=== PATIENT | male | born 1980 | race Caucasian/White ===

== ENCOUNTER → 2022-10-10 | Outpatient (OUT) | payer OTHER, SELFPAY ==
[2022-10-11 06:08] LABS: HIV Ab/p24 Ag Screen Non Reactive (Non Reactive)
== END ==
LOC: LAB 11:08
PROVIDERS: PCP Internal Medicine; Visit Provider Internal Medicine
DX: Z11.4 Encounter for screening for human immunodeficiency virus [HIV] (principal)
CPT/HCPCS: 36415; 87389

== ENCOUNTER 2023-01-15 15:16 | Outpatient (OUT) | payer OTHER, SELFPAY ==
[2023-01-16 05:08] LABS: HIV Ab/p24 Ag Screen Non Reactive (Non Reactive)
== END 2023-01-15 15:17 | disposition home or self-care (01) ==
LOC: LAB 15:17
PROVIDERS: PCP Internal Medicine; Visit Provider Internal Medicine
DX: Z72.52 High risk homosexual behavior (principal)
CPT/HCPCS: 36415; 87389

== ENCOUNTER 2023-05-24 14:01 | Emergency (ER) | payer OTHER, SELFPAY ==
[2023-05-24] VITALS (11 sets, daily range): BP systolic 94–131; BP diastolic 64–102; PULSE 10–104; RESP 11–31; TEMP 36.6; O2SAT 95–100; BMI 20.1
--- NOTE | 2023-05-24 14:23 | ECG_ITS ---
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
--- NOTE | 2023-05-24 14:23 | CT_ITS ---
The [address] [address] Patient Name: BALTAZAR PHIPPS MRN: [id number] date: 1980 Sex: M Assigned Patient Location: ER Current Patient Location: Accession/Order Number: [id number] Exam Date: 05/24/2023 14:35 Report Date: 05/24/2023 14:58 At the request of: CHRISTIN GONGORA Procedure: CT cervical spine wo con EXAM: CT head/brain wo con, CT cervical spine wo con HISTORY: Seizure, neck pain areas of stent COMPARISON: CT head and cervical spine 04/17/2022 TECHNIQUE: Axial noncontrast CT imaging of the head and cervical spine was performed with coronal and sagittal reformats. This CT exam was performed using one or more of the following dose reduction techniques: Automated exposure control, adjustment of the MA and/or kV according to patient size, or use of iterative reconstruction technique. FINDINGS: CT head Calvarium/skull base: No evidence of acute fracture or destructive lesion. Mastoids and middle ears demonstrate no substantial mucosal disease. Paranasal sinuses: No air fluid levels. Brain: No acute intracranial hemorrhage. No acute large vascular territory infarct. No mass lesion or mass effect. No hydrocephalus. CT cervical spine Alignment: Unchanged straightening of the normal cervical lordosis. No substantial subluxation. Vertebrae: Vertebral body heights are maintained. No fracture. Craniocervical junction: No focal abnormality. Congenital nonunion of the posterior arch of C1. Degenerative changes: Similar mild degenerative changes of cervical spine with mild disc height loss and small posterior disc ossify complex at C6-C7. Additional Comments: Biapical scarring with emphysematous changes involving the visualized upper lungs. Streak artifact relating to a right vertebral artery stent is noted with hyperdensity noted within the central aspect of the stents unchanged from prior. This is of undetermined significance given lack of intravenous contrast on the current study. CT/CT cervical spine wo con IMPRESSION: 1. No acute intracranial process. No specific CT evidence to explain etiology for patient's reported seizures. 2. No acute fracture or malalignment of the cervical spine. 3. Similar mild degenerative changes of the cervical spine. 4. Nonspecific hypodensity involving the ventral aspect of the right vertebral artery stent throughout its course which is of undetermined significance and may relate to the type of stent placement. No evidence for stent fracture or significant stenosis is otherwise seen. Patency of the stents cannot be determined on the current study given lack of intravenous contrast. Electronically authenticated by: SAMANTHA MARMOLEJO Date: 05/24/2023 14:58
--- NOTE | 2023-05-24 14:24 | CT_ITS ---
The [address] [address] Patient Name: BALTAZAR PHIPPS MRN: [id number] date: 1980 Sex: M Assigned Patient Location: ER Current Patient Location: Accession/Order Number: [id number] Exam Date: 05/24/2023 14:35 Report Date: 05/24/2023 14:58 At the request of: CHRISTIN GONGORA Procedure: CT head/brain wo con EXAM: CT head/brain wo con, CT cervical spine wo con HISTORY: Seizure, neck pain areas of stent COMPARISON: CT head and cervical spine 04/17/2022 TECHNIQUE: Axial noncontrast CT imaging of the head and cervical spine was performed with coronal and sagittal reformats. This CT exam was performed using one or more of the following dose reduction techniques: Automated exposure control, adjustment of the MA and/or kV according to patient size, or use of iterative reconstruction technique. FINDINGS: CT head Calvarium/skull base: No evidence of acute fracture or destructive lesion. Mastoids and middle ears demonstrate no substantial mucosal disease. Paranasal sinuses: No air fluid levels. Brain: No acute intracranial hemorrhage. No acute large vascular territory infarct. No mass lesion or mass effect. No hydrocephalus. CT cervical spine Alignment: Unchanged straightening of the normal cervical lordosis. No substantial subluxation. Vertebrae: Vertebral body heights are maintained. No fracture. Craniocervical junction: No focal abnormality. Congenital nonunion of the posterior arch of C1. Degenerative changes: Similar mild degenerative changes of cervical spine with mild disc height loss and small posterior disc ossify complex at C6-C7. Additional Comments: Biapical scarring with emphysematous changes involving the visualized upper lungs. Streak artifact relating to a right vertebral artery stent is noted with hyperdensity noted within the central aspect of the stents unchanged from prior. This is of undetermined significance given lack of intravenous contrast on the current study. CT/CT head/brain wo con IMPRESSION: 1. No acute intracranial process. No specific CT evidence to explain etiology for patient's reported seizures. 2. No acute fracture or malalignment of the cervical spine. 3. Similar mild degenerative changes of the cervical spine. 4. Nonspecific hypodensity involving the ventral aspect of the right vertebral artery stent throughout its course which is of undetermined significance and may relate to the type of stent placement. No evidence for stent fracture or significant stenosis is otherwise seen. Patency of the stents cannot be determined on the current study given lack of intravenous contrast. Electronically authenticated by: SAMANTHA MARMOLEJO Date: 05/24/2023 14:58
--- NOTE | 2023-05-24 14:26 | ED_ITS ---
HPI - Seizure General Chief Complaint: Seizure Stated Complaint: SEIZURES Time Seen by Provider: 05/24/23 14:13 History of Present Illness HPI Narrative: Patient is a 42-year-old male with a history of CVA and seizures who presents to the emergency department by ambulance for the evaluation of seizure last night and this morning. Patient states that he has not been able to take his seizure medication for the last 6 to 7 days because no one will fill it . He is on Oxtellar for his seizures. This is prescribed by his primary care provider. He is also on Plavix for history of CVA.He has no focal medical complaints until he is examined and then complains of neck pain. He states he was asleep on the couch last night when he woke up shaking on the floor. He states his seizures consist of him shaking and being awake. No medications given prior to arrival by EMS. He had a similar episode this morning which prompted his mother to call 911. No recent illness. He was not noted to have any incontinence or dental injury. Related Data Home Medications Medication Instructions Recorded Confirmed clopidogrel 75 mg tablet 75 mg PO DAILY 05/24/23 05/24/23 emtricitabine 200 mg-tenofovir 1 tab PO Q24H 05/24/23 05/24/23 disoproxil fumarate 300 mg tablet loratadine 10 mg tablet 10 mg PO Q24H 05/24/23 05/24/23 trazodone 150 mg tablet 150 mg PO DAILY PRN insomnia 05/24/23 05/24/23 Previous Rx's Medication Instructions Recorded levetiracetam 500 mg tablet 500 mg PO Q12H #30 tabs 05/24/23 (Keppra) ondansetron 4 mg disintegrating 4 mg PO Q6H PRN nausea and 05/24/23 tablet vomiting #12 tabs Allergies Allergy/AdvReac Type Severity Reaction Status Date / Time bupropion [From Wellbutrin] AdvReac Gastrointestinal Verified 05/24/23 14:31 Upset Review of Systems ROS Constitutional Denies: fever or chills Ears, nose, mouth, and throat Denies: throat pain or nasal congestion Cardiovascular Denies: chest pain Respiratory Denies: shortness of breath or cough Gastrointestinal Reports: nausea; Denies: vomiting Musculoskeletal Reports: neck pain; Denies: back pain or extremity pain Integumentary/Breast Denies: rash Neurological Denies: headache PFSH PFSH Social History Smoking status: Current every day smoker Exam Narrative Exam Narrative: Gen.: Awake, alert, in no distress Head: Normocephalic, atraumatic ENT: Moist mucous membranes; Poor dentition with no dental injury. C-spine is tender to palpation in the paraspinal muscles of the right cervical spine Respiratory: No respiratory distress, lungs clear bilaterally Cardio: Regular rate and rhythm Gastrointestinal: Abdomen is soft, nondistended and nontender to palpation Extremities: Moves extremities equally, no injuries noted Psych: Normal mood and affect Neuro: No focal neuro deficit Skin: Warm, dry, intact Constitutional Vital Signs, click to edit/add: Last Vital Signs Temp 97.8 F 05/24/23 14:18 Pulse 10 L 05/24/23 16:31 Resp 18 05/24/23 16:31 BP 94/64 05/24/23 16:31 Pulse Ox 99 05/24/23 16:31 O2 Del Method Room Air 05/24/23 14:18 Course Vital Signs Vital signs: Vital Signs Blood Pressure 118/102 H 05/24/23 14:11 Pulse Oximetry 97 05/24/23 14:11 Temperature 97.8 F 05/24/23 14:18 Pulse Rate 10 L 05/24/23 16:31 Respiratory Rate 18 05/24/23 16:31 Blood Pressure 94/64 05/24/23 16:31 Pulse Oximetry 99 05/24/23 16:31 Oxygen Delivery Method Room Air 05/24/23 14:18 MDM - Seizure MDM Narrative Medical decision making narrative: CT of the head and C-spine show no change from prior, no acute abnormalities. Lab studies are unremarkable and patient was treated with IV fluids and IV Keppra in the ER. I discussed his medication issue with his PCP, Dr. Irvin who recommended I speak with his neurologist, Dr. Mean, But as it is after office hours he is not available. I will Prescribe the patient Keppra which was suggested by Dr. Irvin. Follow-up with PCP and neurology and return to the ER if symptoms change or worsen Medical Records Attestation: I reviewed the patient's medical records. Lab Data Attestation: I reviewed the patient's lab results. Labs: Lab Results 05/24/23 Range/Units 14:25 WBC 6.1 (4.0-11.0) 10^3/uL RBC 4.13 L (4.70-6.10) 10^6/uL Hgb 14.2 (14.0-18.0) g/dL Hct 41.4 L (42.0-54.0) % MCV 100.2 H (80.0-94.0) fL MCH 34.4 H (25.9-34.0) pg MCHC 34.3 (29.9-35.2) g/dL RDW 12.7 (11.0-15.0) % Plt Count 196 (150-450) 10^3/uL MPV 11.4 (9.5-13.5) fL Neut % (Auto) 47.5 (43.0-75.0) % Lymph % (Auto) 41.9 (20.5-60.0) % [place] % (Auto) 7.6 (1.7-12.0) % Eos % (Auto) 2.1 (0.9-7.0) % Baso % (Auto) 0.7 (0.2-2.0) % Neut # (Auto) 2.9 (1.4-6.5) 10^3/uL Lymph # (Auto) 2.6 (1.2-3.8) 10^3/uL [place] # (Auto) 0.5 (0.3-0.8) 10^3/uL Eos # (Auto) 0.1 (0.0-0.7) 10^3/uL Baso # (Auto) 0.0 (0.0-0.1) 10^3/uL Abs Immat Gran (auto) 0.01 (0.00-0.03) 10^3/uL Imm/Tot Granulo (auto) 0.2 (0.0-0.5) % Sodium 142 (136-145) mmol/L Potassium 4.6 (3.5-5.1) mmol/L Chloride 104 (98-107) mmol/L Carbon Dioxide 28.0 (21.0-32.0) mmol/L Anion Gap 14.6 BUN 5.0 L (7.0-18.0) mg/dL Creatinine 0.76 (0.70-1.30) mg/dL Est GFR ( Amer) >60 (>=60) Est GFR (Non-Af Amer) >60 (>=60) BUN/Creatinine Ratio 6.6 Glucose 80 (74-106) mg/dL Calcium 8.3 L (8.5-10.1) mg/dL Magnesium 2.2 (1.8-2.4) mg/dL Total Bilirubin 0.3 (0.2-1.0) mg/dL AST 40 H (15-37) U/L ALT 25 (16-63) U/L Alkaline Phosphatase 74 (46-116) U/L Total Protein 8.0 (6.4-8.2) g/dL Albumin 3.8 (3.4-5.0) g/dL Globulin 4.2 g/dL Albumin/Globulin Ratio 0.[address] scan - head: Radiologist's impression: ITS Impressions Cervical Spine CT 05/24/23 14:23 IMPRESSION: 1. No acute intracranial process. No specific CT evidence to explain etiology for patient's reported seizures. 2. No acute fracture or malalignment of the cervical spine. 3. Similar mild degenerative changes of the cervical spine. 4. Nonspecific hypodensity involving the ventral aspect of the right vertebral artery stent throughout its course which is of undetermined significance and may relate to the type of stent placement. No evidence for stent fracture or significant stenosis is otherwise seen. Patency of the stents cannot be determined on the current study given lack of intravenous contrast. Electronically authenticated by: SAMANTHA MARMOLEJO Date: 05/24/2023 14:[address] 05/24/23 14:24 IMPRESSION: 1. No acute intracranial process. No specific CT evidence to explain etiology for patient's reported seizures. 2. No acute fracture or malalignment of the cervical spine. 3. Similar mild degenerative changes of the cervical spine. 4. Nonspecific hypodensity involving the ventral aspect of the right vertebral artery stent throughout its course which is of undetermined significance and may relate to the type of stent placement. No evidence for stent fracture or significant stenosis is otherwise seen. Patency of the stents cannot be determined on the current study given lack of intravenous contrast. Electronically authenticated by: SAMANTHA MARMOLEJO Date: 05/24/2023 14:58 Discharge Plan Discharge Chief Complaint: Seizure Clinical Impression: Breakthrough seizure Patient Disposition: Home, Self-Care Time of Disposition Decision: 16:31 Condition: Good Prescriptions / Home Meds: New levetiracetam [Keppra] 500 mg tablet 500 mg PO Q12H Qty: 30 0RF ondansetron 4 mg tablet,disintegrating 4 mg PO Q6H PRN (Reason: nausea and vomiting) Qty: 12 0RF No Action clopidogrel 75 mg tablet 75 mg PO DAILY loratadine 10 mg tablet 10 mg PO Q24H emtricitabine-tenofovir (TDF) 200-300 mg tablet 1 tab PO Q24H trazodone 150 mg tablet 150 mg PO DAILY PRN (Reason: insomnia) Instructions: Recurrent Seizures in Adults (ED) Stand Alone Forms: Portal Instructions Referrals: JESSICA MENA [Physician] - 1 week DARRELL IRVIN [Primary Care Provider] - 1 week
--- NOTE | 2023-05-24 14:36 | PC.NURSE ---
Arrives via EMS. Patient alert and oriented and answers all questions appropriately.
[2023-05-24 15:00] LABS: Basophils Percent Auto 0.7 % (0.2-2.0); Eosinophils Absolute Auto 0.1 10^3/uL (0.0-0.7); Eosinophils Percent Auto 2.1 % (0.9-7.0); Hematocrit 41.4 % (42.0-54.0); Hemoglobin 14.2 g/dL (14.0-18.0); Immature Granulocytes Abs Auto 0.01 10^3/uL (0.00-0.03); Immature Granulocytes Pct Auto 0.2 % (0.0-0.5); Lymphocytes Absolute Auto 2.6 10^3/uL (1.2-3.8); Lymphocytes Percent Auto 41.9 % (20.5-60.0); Mean Corpuscular HGB Conc 34.3 g/dL (29.9-35.2); Mean Corpuscular Hemoglobin 34.4 pg (25.9-34.0); Mean Corpuscular Volume 100.2 fL (80.0-94.0); Mean Platelet Volume 11.4 fL (9.5-13.5); Monocytes Absolute Auto 0.5 10^3/uL (0.3-0.8); Monocytes Percent Auto 7.6 % (1.7-12.0); Neutrophils Absolute Auto 2.9 10^3/uL (1.4-6.5); Neutrophils Percent Auto 47.5 % (43.0-75.0); Platelet Count 196 10^3/uL (150-450); Red Blood Count 4.13 10^6/uL (4.70-6.10); Red Cell Distribution Width 12.7 % (11.0-15.0); White Blood Count 6.1 10^3/uL (4.0-11.0)
[2023-05-24] MEDS: ORPHENADRINE 60 MG/ 2 ML VIAL IV (15:14)
[2023-05-24] MEDS: ONDANSETRON PF 4 MG/2 ML VIAL IV (15:14)
[2023-05-24] MEDS: 0.9 % SODIUM CHLORIDE 1,000 ML 999 ML IV (15:17)
[2023-05-24] MEDS: LEVETIRACETAM 1,000 MG in 0.9 % SODIUM CHLORIDE 100 ML 440 MG IV (15:17)
[2023-05-24 15:32] LABS: Alanine Aminotransferase 25 U/L (16-63); Albumin Globulin Ratio 0.9; Albumin Level 3.8 g/dL (3.4-5.0); Alkaline Phosphatase 74 U/L (46-116); Anion Gap 14.6; Aspartate Amino Transferase 40 U/L (15-37); BUN Creatinine Ratio 6.6; Bilirubin Total 0.3 mg/dL (0.2-1.0); Calcium 8.3 mg/dL (8.5-10.1); Chloride 104 mmol/L (98-107); Estimated GFR (African America >60 (>=60); Estimated GFR (Non-African Ame >60 (>=60); Globulin 4.2 g/dL; Glucose 80 mg/dL (74-106); Magnesium 2.2 mg/dL (1.8-2.4); Potassium 4.6 mmol/L (3.5-5.1); Sodium 142 mmol/L (136-145)
== END 2023-05-24 17:05 | disposition home or self-care (01) ==
PROVIDERS: Physician Assistant; Emergency Provider Emergency Medicine; PCP Internal Medicine
DX: G40.909 Epilepsy, unspecified, not intractable, without status epilepticus (principal); Z86.73 Personal history of transient ischemic attack (TIA), and cerebral infarction without residual deficits; Z79.899 Other long term (current) drug therapy; Z79.02 Long term (current) use of antithrombotics/antiplatelets; F17.210 Nicotine dependence, cigarettes, uncomplicated
CPT/HCPCS: 36415; 70450; 72125; 80053; 80307; 83735; 85025; 93005; 96365; 96375; 99285; J1953; J2360; J2405

== ENCOUNTER 2023-06-07 09:52 | Outpatient (OUT) | payer OTHER, SELFPAY ==
[2023-06-08 05:08] LABS: HIV Ab/p24 Ag Screen Non Reactive (Non Reactive)
[2023-06-11 07:07] LABS: Levetiracetam (Keppra), S 21.1 ug/mL (10.0-40.0)
== END 2023-06-07 09:53 | disposition home or self-care (01) ==
LOC: LAB 09:56
PROVIDERS: PCP Internal Medicine; Visit Provider Internal Medicine
DX: R56.9 Unspecified convulsions (principal)
CPT/HCPCS: 36415; 80177; 87389

== ENCOUNTER 2023-07-30 11:04 | Outpatient (OUT) | payer OTHER, SELFPAY ==
[2023-07-30 11:34] LABS: Hemoglobin 13.1 g/dL (14.0-18.0); Mean Corpuscular HGB Conc 32.8 g/dL (29.9-35.2); Mean Corpuscular Hemoglobin 33.5 pg (25.9-34.0); Mean Corpuscular Volume 102.3 fL (80.0-94.0); Platelet Count 142 10^3/uL (150-450); Red Blood Count 3.91 10^6/uL (4.70-6.10); Red Cell Distribution Width 12.2 % (11.0-15.0)
[2023-07-30 13:06] LABS: Bilirubin Direct 0.1 mg/dL (0.0-0.2)
[2023-07-30 13:50] LABS: Alanine Aminotransferase 26 U/L (16-63); Albumin Globulin Ratio 1.1; Albumin Level 3.8 g/dL (3.4-5.0); Alkaline Phosphatase 63 U/L (46-116); Anion Gap 14.3; Aspartate Amino Transferase 18 U/L (15-37); BUN Creatinine Ratio 6.8; Bilirubin Total 0.3 mg/dL (0.2-1.0); Carbon Dioxide 27.1 mmol/L (21.0-32.0); Chloride 103 mmol/L (98-107); Estimated GFR (African America >60 (>=60); Estimated GFR (Non-African Ame >60 (>=60); Globulin 3.6 g/dL; Glucose 85 mg/dL (74-106); Potassium 4.4 mmol/L (3.5-5.1); Sodium 140 mmol/L (136-145); Total Protein 7.4 g/dL (6.4-8.2)
[2023-07-31 06:08] LABS: HIV Ab/p24 Ag Screen Non Reactive (Non Reactive)
[2023-08-01 16:11] LABS: HCV Ab Reactive (Non Reactive)
== END 2023-07-30 11:05 | disposition home or self-care (01) ==
LOC: LAB 11:07
PROVIDERS: PCP Internal Medicine
DX: F10.20 Alcohol dependence, uncomplicated (principal)
CPT/HCPCS: 36415; 80053; 80076; 82248; 85027; 87389; 87522

== ENCOUNTER 2023-10-22 09:23 | Emergency (ER) | payer OTHER, SELFPAY ==
[2023-10-22] VITALS (15 sets, daily range): BP systolic 108–130; BP diastolic 80–88; PULSE 93–110; TEMP 37; O2SAT 92–97; BMI 20.8
--- NOTE | 2023-10-22 09:53 | PC.NURSE ---
patient brought in by EMS with NC at 4 lpm, IV established with 900 ml of saline given. Patient was have left sided weakness that is from a previous stroke however patient states it is more painful and intense. Patient admits to drinking alcohol on a daily basis. Is current with prescribed medications.
--- NOTE | 2023-10-22 10:02 | ED_ITS ---
HPI - Seizure General Chief Complaint: Seizure Stated Complaint: SHORTNESS OF BREATH/ COUGH Time Seen by Provider: 10/22/23 10:01 Source: patient Mode of arrival: ambulance Limitations: no limitations History of Present Illness HPI Narrative: This patient's here for complaint of left-sided weakness. He has had a previous large stroke treated at a tertiary center a number of years ago. He has residual speech deficit and left-sided weakness but since he had major seizure on the previous Sunday he said he just has not recovered. He says his roommate says had a couple small seizures since that time as well. He cannot really describe much of his history but said that he has a stent in on the right side of his body. He does not have any neck pain or severe head pain at this time. He has muscle aches and pains that he attributes to the severe seizure. He has no abdominal pain, no shortness of breath. He says normally gets around and takes care of himself but now he is got increasing weakness on his left arm left leg. Seizure History: Yes Place: home Related Data Home Medications ?Medication ?Instructions ?Recorded ?Confirmed clopidogrel 75 mg tablet 75 mg PO DAILY 05/24/23 10/22/23 emtricitabine 200 mg-tenofovir 1 tab PO Q24H 05/24/23 10/22/23 disoproxil fumarate 300 mg tablet trazodone 150 mg tablet 150 mg PO DAILY PRN insomnia 05/24/23 10/22/23 buspirone 10 mg tablet 10 mg PO Q8H 10/22/23 10/22/23 hydroxyzine pamoate 25 mg capsule 25 mg PO Q8H PRN anxiety 10/22/23 10/22/23 mirtazapine 30 mg tablet 30 mg PO DAILY 10/22/23 10/22/23 naltrexone microspheres 380 mg 380 mg IM .monthly 10/22/23 10/22/23 intramuscular suspension,extended release (Vivitrol) Previous Rx's ?Medication ?Instructions ?Recorded levetiracetam 500 mg tablet 500 mg PO Q12H #30 tabs 05/24/23 (Keppra) ondansetron 4 mg disintegrating 4 mg PO Q6H PRN nausea and 05/24/23 tablet vomiting #12 tabs Allergies Allergy/AdvReac Type Severity Reaction Status Date / Time bupropion [From Wellbutrin] AdvReac Gastrointestinal Verified 05/24/23 14:[address] [facility] Medical History (Updated 10/22/23 @ 12:29 by Bean Henry MD) Stroke due to embolism ?I63.9 - Cerebral infarction, unspecified (ICD-10) Seizure cerebral ?G40.909 - Epilepsy, unspecified, not intractable, without status epilepticus (ICD-10) Social History Smoking status: Current every day smoker Exam Narrative Exam Narrative: Patient was seen shortly after arrival here he is awake alert he is actually very good historian. He just describes that he seems to have a little bit more weakness and deficit on his left side since his event on Sunday. He does smell of alcohol but is very pleasant. His neck is soft and supple there is no meningeal irritation or nuchal rigidity. There is facial weakness on his left side he says he is learned to speak out of the right side of his mouth he says there is nothing different with his speech. Extremities are 1/4 strength on the left upper and left lower extremity 4/4 on the right. Heart sounds are normal with no arrhythmia or murmur. Abdomen is benign with no tenderness pain or discomfort with palpation. Constitutional Vital Signs, click to edit/add: Last Vital Signs Temp 98.6 F 10/22/23 09:28 Pulse 95 H 10/22/23 10:40 Resp 20 10/22/23 10:40 BP 116/84 10/22/23 11:30 Pulse Ox 96 10/22/23 10:40 O2 Del Method Room Air 10/22/23 09:28 Course Vital Signs Vital signs: Vital Signs Blood Pressure 130/83 10/22/23 09:26 Temperature 98.6 F 10/22/23 09:28 Pulse Rate 95 H 10/22/23 10:40 Respiratory Rate 20 10/22/23 10:40 Blood Pressure 116/84 10/22/23 11:30 Pulse Oximetry 96 10/22/23 10:40 Oxygen Delivery Method Room Air 10/22/23 09:28 MDM - Seizure MDM Narrative Medical decision making narrative: Because the breakthrough seizure and persistent weakness we did an immediate CT scan without contrast. It is negative for acute abnormalities. His laboratory testing shows marked increase in his blood alcohol level. Lactate level is up modestly that is also consistent with possible seizure disorder. He remained under observation here until 12:30 PM. We called his pharmacy to clarify the specific dose of Keppra, he is taking 1000 mg twice daily. We also spoke with his primary care doctor who said to be glad to follow-up with him. In the meantime we cautioned him him about further alcohol use and medication use. Until we have the Keppra level back we will make medication adjustments. Lab Data Labs: Lab Results 10/22/23 Range/Units 10:14 WBC 8.9 (4.0-11.0) 10^3/uL RBC 3.85 L (4.70-6.10) 10^6/uL Hgb 13.3 L (14.0-18.0) g/dL Hct 38.2 L (42.0-54.0) % MCV 99.2 H (80.0-94.0) fL MCH 34.5 H (25.9-34.0) pg MCHC 34.8 (29.9-35.2) g/dL RDW 11.9 (11.0-15.0) % Plt Count 156 (150-450) 10^3/uL MPV 11.1 (9.5-13.5) fL Neut % (Auto) 65.1 (43.0-75.0) % Lymph % (Auto) 24.7 (20.5-60.0) % [place] % (Auto) 8.0 (1.7-12.0) % Eos % (Auto) 1.2 (0.9-7.0) % Baso % (Auto) 0.8 (0.2-2.0) % Neut # (Auto) 5.8 (1.4-6.5) 10^3/uL Lymph # (Auto) 2.2 (1.2-3.8) 10^3/uL [place] # (Auto) 0.7 (0.3-0.8) 10^3/uL Eos # (Auto) 0.1 (0.0-0.7) 10^3/uL Baso # (Auto) 0.1 (0.0-0.1) 10^3/uL Abs Immat Gran (auto) 0.02 (0.00-0.03) 10^3/uL Imm/Tot Granulo (auto) 0.2 (0.0-0.5) % PT 11.4 (9.0-11.6) sec INR 1.08 Sodium 138 (136-145) mmol/L Potassium 3.5 (3.5-5.1) mmol/L Chloride 105 (98-107) mmol/L Carbon Dioxide 22.7 (21.0-32.0) mmol/L Anion Gap 13.8 BUN 5.0 L (7.0-18.0) mg/dL Creatinine 0.70 (0.70-1.30) mg/dL Est GFR ( Amer) >60 (>=60) Est GFR (Non-Af Amer) >60 (>=60) BUN/Creatinine Ratio 7.1 Glucose 104 (74-106) mg/dL Lactate 2.7 H* (0.4-2.0) mmol/L Calcium 7.8 L (8.5-10.1) mg/dL Total Bilirubin 0.3 (0.2-1.0) mg/dL AST 19 (15-37) U/L ALT 17 (16-63) U/L Alkaline Phosphatase 82 (46-116) U/L Ammonia 13 (11-32) umol/L Total Protein 6.9 (6.4-8.2) g/dL Albumin 3.5 (3.4-5.0) g/dL Globulin 3.4 g/dL Albumin/Globulin Ratio 1.0 Ethanol Quant 251 mg/dL Discharge Plan Discharge Stand Alone Forms: Portal Instructions Chief Complaint: Seizure Clinical Impression: Breakthrough seizure, Alcohol abuse Patient Disposition: Home, Self-Care Time of Disposition Decision: 12:29 Prescriptions / Home Meds: No Action clopidogrel 75 mg tablet 75 mg PO DAILY emtricitabine-tenofovir (TDF) 200-300 mg tablet 1 tab PO Q24H trazodone 150 mg tablet 150 mg PO DAILY PRN (Reason: insomnia) levetiracetam [Keppra] 500 mg tablet 500 mg PO Q12H Qty: 30 0RF ondansetron 4 mg tablet,disintegrating 4 mg PO Q6H PRN (Reason: nausea and vomiting) Qty: 12 0RF buspirone 10 mg tablet 10 mg PO Q8H hydroxyzine pamoate 25 mg capsule 25 mg PO Q8H PRN (Reason: anxiety) mirtazapine 30 mg tablet 30 mg PO DAILY Vivitrol 380 mg suspension,extended rel recon 380 mg IM .monthly Print Language: Djib[place]ian Additional Instructions: Continue present medication. No further alcohol use Referrals: DARRELL GREENE [Primary Care Provider] - 1 week
--- NOTE | 2023-10-22 10:10 | XR_ITS ---
The [address] [address] Patient Name: BALTAZAR PHIPPS MRN: [id number] date: 1980 Sex: M Assigned Patient Location: ER Current Patient Location: ER Accession/Order Number: [id number] Exam Date: 10/22/2023 10:05 Report Date: 10/22/2023 10:23 At the request of: LAUREN HYMAN Procedure: XR chest 1V EXAM: Chest x-ray HISTORY: . Seizure . COMPARISON: 04/17/2022 TECHNIQUE: Single view of the chest. FINDINGS: Heart and vascularity are unremarkable. There is hyperexpansion of the lungs. Lungs are free of focal infiltrates. EKG leads overlie the chest. There is a small calcified nodule in the left midlung field which is unchanged and consistent with a granuloma. XR/XR chest 1V Impression: 1. Hyperexpansion of lungs. 2. No infiltrates noted. 3. No change from the previous exam. Electronically authenticated by: WANDA HOUSE Date: 10/22/2023 10:23
[2023-10-22] MEDS: 0.9 % SODIUM CHLORIDE 1,000 ML 100 ML IV (10:21)
--- NOTE | 2023-10-22 10:28 | CT_ITS ---
The [address] [address] Patient Name: BALTAZAR PHIPPS MRN: [id number] date: 1980 Sex: M Assigned Patient Location: ER Current Patient Location: ER Accession/Order Number: [id number] Exam Date: 10/22/2023 10:24 Report Date: 10/22/2023 10:42 At the request of: LAUREN HYMAN Procedure: CT head/brain wo con EXAMINATION: CT head/brain wo con HISTORY: Breakthrough seizure/previous stroke COMPARISON: CT head 05/24/2023 TECHNIQUE: Axial CT images were obtained without IV contrast. Dose reduction techniques were achieved by using automated exposure control and/or adjustment of mA and/or kV according to patient size and/or use of iterative reconstruction technique. FINDINGS: BRAIN: No edema, hemorrhage, mass, acute infarction, or inappropriate atrophy. CSF SPACES: No hydrocephalus, subarachnoid hemorrhage, or mass. Appropriate for age. SKULL: No fracture, mass, or other significant visible lesion. SINUSES: No significant mucosal thickening or fluid on the limited views. ORBITS: No appreciable abnormality on the limited views. OTHER: Negative CT/CT head/brain wo con IMPRESSION: 1. No abnormal or suspicious findings of the brain to account for patient's symptoms. Electronically authenticated by: AILEEN REN Date: 10/22/2023 10:42
[2023-10-22 10:31] LABS: Basophils Absolute Auto 0.1 10^3/uL (0.0-0.1); Basophils Percent Auto 0.8 % (0.2-2.0); Eosinophils Absolute Auto 0.1 10^3/uL (0.0-0.7); Eosinophils Percent Auto 1.2 % (0.9-7.0); Hematocrit 38.2 % (42.0-54.0); Hemoglobin 13.3 g/dL (14.0-18.0); Immature Granulocytes Abs Auto 0.02 10^3/uL (0.00-0.03); Immature Granulocytes Pct Auto 0.2 % (0.0-0.5); Lymphocytes Absolute Auto 2.2 10^3/uL (1.2-3.8); Lymphocytes Percent Auto 24.7 % (20.5-60.0); Mean Corpuscular HGB Conc 34.8 g/dL (29.9-35.2); Mean Corpuscular Hemoglobin 34.5 pg (25.9-34.0); Mean Corpuscular Volume 99.2 fL (80.0-94.0); Mean Platelet Volume 11.1 fL (9.5-13.5); Monocytes Absolute Auto 0.7 10^3/uL (0.3-0.8); Neutrophils Absolute Auto 5.8 10^3/uL (1.4-6.5); Neutrophils Percent Auto 65.1 % (43.0-75.0); Platelet Count 156 10^3/uL (150-450); Red Blood Count 3.85 10^6/uL (4.70-6.10); Red Cell Distribution Width 11.9 % (11.0-15.0); White Blood Count 8.9 10^3/uL (4.0-11.0)
[2023-10-22 10:48] LABS: Ammonia 13 umol/L (11-32)
[2023-10-22 10:53] LABS: Alanine Aminotransferase 17 U/L (16-63); Albumin Level 3.5 g/dL (3.4-5.0); Alkaline Phosphatase 82 U/L (46-116); Anion Gap 13.8; Aspartate Amino Transferase 19 U/L (15-37); BUN Creatinine Ratio 7.1; Bilirubin Total 0.3 mg/dL (0.2-1.0); Calcium 7.8 mg/dL (8.5-10.1); Carbon Dioxide 22.7 mmol/L (21.0-32.0); Chloride 105 mmol/L (98-107); Estimated GFR (African America >60 (>=60); Estimated GFR (Non-African Ame >60 (>=60); Ethanol 251 mg/dL; Globulin 3.4 g/dL; Glucose 104 mg/dL (74-106); Potassium 3.5 mmol/L (3.5-5.1); Sodium 138 mmol/L (136-145); Total Protein 6.9 g/dL (6.4-8.2)
[2023-10-22 10:57] LABS: INR 1.08; Prothrombin Time 11.4 sec (9.0-11.6)
[2023-10-22 11:07] LABS: Lactate/Lactic Acid 2.7 mmol/L (0.4-2.0)
[2023-10-22] MEDS: LORAZEPAM 2 MG/ML VIAL 1 MG IV (11:22)
--- NOTE | 2023-10-22 11:25 | ECG_ITS ---
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
--- NOTE | 2023-10-25 11:34 | PC.NURSE ---
Spoke with patients PCP, Dr. Irvin's nurse, stated will schedule patient to adjust medications in office. [place] results faxed to Dr. Irvin's office, [phone]. Attempted to call patient, no answer. Unable to leave voicemail due to voicemail box being full.
== END 2023-10-22 13:03 | disposition home or self-care (01) ==
PROVIDERS: Emergency Provider Emergency Medicine Emergency Medical Services; PCP Internal Medicine
DX: G40.89 Other seizures (principal); F10.10 Alcohol abuse, uncomplicated; Y90.8 Blood alcohol level of 240 mg/100 ml or more; I69.354 Hemiplegia and hemiparesis following cerebral infarction affecting left non-dominant side; I69.328 Other speech and language deficits following cerebral infarction; F17.200 Nicotine dependence, unspecified, uncomplicated
CPT/HCPCS: 36415; 70450; 71045; 80053; 80177; 80320; 82140; 83605; 85025; 85610; 93005; 96374; 99285; J2060

== ENCOUNTER 2023-10-26 10:31 | Emergency (ER) | payer OTHER, SELFPAY ==
[2023-10-26 10:34] VITALS: BP 129/93; PULSE 79; TEMP 36.9; O2SAT 99; BMI 20.1
--- NOTE | 2023-10-26 10:37 | ED.PSYCH1 ---
HPI - Psych General Chief Complaint: Psychiatric Symptoms Stated Complaint: SUICIDAL Time Seen by Provider: 10/26/23 10:34 Source: Reports patient Mode of arrival: ambulance Limitations: Reports altered mental status Limitations comment: Intoxicated History of Present Illness HPI Narrative: 42-year-old male presents because he is suicidal. He was transported here by paramedics. He was drinking alcohol today and states he almost slit his wrists but did not. Denies any other drug use. He states he was having an argument with some people. Related Data Home Medications ?Medication ?Instructions ?Recorded ?Confirmed clopidogrel 75 mg tablet 75 mg PO DAILY 05/24/23 10/22/23 emtricitabine 200 mg-tenofovir 1 tab PO Q24H 05/24/23 10/22/23 disoproxil fumarate 300 mg tablet trazodone 150 mg tablet 150 mg PO DAILY PRN insomnia 05/24/23 10/22/23 buspirone 10 mg tablet 10 mg PO Q8H 10/22/23 10/22/23 hydroxyzine pamoate 25 mg capsule 25 mg PO Q8H PRN anxiety 10/22/23 10/22/23 mirtazapine 30 mg tablet 30 mg PO DAILY 10/22/23 10/22/23 naltrexone microspheres 380 mg 380 mg IM .monthly 10/22/23 10/22/23 intramuscular suspension,extended release (Vivitrol) levetiracetam 500 mg tablet 1,000 mg PO Q12H 10/25/23 10/25/23 (Keppra) Previous Rx's ?Medication ?Instructions ?Recorded ondansetron 4 mg disintegrating 4 mg PO Q6H PRN nausea and 05/24/23 tablet vomiting #12 tabs Allergies Allergy/AdvReac Type Severity Reaction Status Date / Time bupropion [From Wellbutrin] AdvReac Gastrointestinal Verified 05/24/23 14:31 Upset Review of Systems ROS Narrative A ten point review of systems is negative except as noted above. [facility] Medical History (Updated 10/26/23 @ 15:42 by Piter Jacobsen MD) Stroke due to embolism ?I63.9 - Cerebral infarction, unspecified (ICD-10) Seizure cerebral ?G40.909 - Epilepsy, unspecified, not intractable, without status epilepticus (ICD-10) Social History Smoking status: Current every day smoker Exam Narrative Exam Narrative: Nurses note and vital signs reviewed and patient is not hypoxic. General: The patient appears well and in no apparent distress. Patient is resting comfortably on cart. Skin: Warm, dry, no pallor noted. There is no rash noted. Head: Normocephalic, atraumatic Eye: Normal conjunctiva, no drainage, EOMI. PERRL Ears, Nose, Mouth, and Throat: oral mucosa is moist. Nares patent. Cardiovascular: Regular Rate and Rhythm Respiratory: Patient is in no distress, no accessory muscle use, lungs are clear to auscultation, no wheezing, rales or rhonchi Back: non-tender GI: Soft and nontender Musculoskeletal: The patient has no evidence of calf tenderness, no pitting edema, symmetrical pulses noted bilaterally Neurological: Awake and alert, speech is slightly slurred Psychiatric: Cooperative Constitutional Vital Signs, click to edit/add: Last Vital Signs Temp 98.5 F 10/26/23 10:34 Pulse 79 10/26/23 10:34 Resp 18 10/26/23 10:34 BP 129/93 H 10/26/23 10:34 Pulse Ox 99 10/26/23 10:34 O2 Del Method Room Air 10/26/23 10:34 Course Vital Signs Vital signs: Vital Signs Temperature 98.5 F 10/26/23 10:34 Pulse Rate 79 10/26/23 10:34 Respiratory Rate 18 10/26/23 10:34 Blood Pressure 129/93 H 10/26/23 10:34 Pulse Oximetry 99 10/26/23 10:34 Oxygen Delivery Method Room Air 10/26/23 10:34 Temperature 98.5 F 10/26/23 10:34 Pulse Rate 79 10/26/23 10:34 Respiratory Rate 18 10/26/23 10:34 Blood Pressure 129/93 H 10/26/23 10:34 Pulse Oximetry 99 10/26/23 10:34 Oxygen Delivery Method Room Air 10/26/23 10:34 MDM - Psych MDM Narrative Medical decision making narrative: The patient presents with suicidal ideation and is intoxicated with alcohol. His level was 294. He is being observed here in the emergency department. Repeat alcohol level ordered for 8 PM and the patient is signed out to Dr. Osullivan at change of shift. Differential Diagnosis Differential diagnosis: Likely suicidal ideation, depression and acute anxiety Lab Data Attestation: I reviewed the patient's lab results. Labs: Lab Results 10/26/23 10/26/23 Range/Units 10:45 10:58 WBC 5.5 (4.0-11.0) 10^3/uL RBC 4.03 L (4.70-6.10) 10^6/uL Hgb 14.1 (14.0-18.0) g/dL Hct 39.9 L (42.0-54.0) % MCV 99.0 H (80.0-94.0) fL MCH 35.0 H (25.9-34.0) pg MCHC 35.3 H (29.9-35.2) g/dL RDW 11.8 (11.0-15.0) % Plt Count 146 L (150-450) 10^3/uL MPV 11.1 (9.5-13.5) fL Neut % (Auto) 40.8 L (43.0-75.0) % Lymph % (Auto) 46.0 (20.5-60.0) % [place] % (Auto) 11.1 (1.7-12.0) % Eos % (Auto) 1.4 (0.9-7.0) % Baso % (Auto) 0.5 (0.2-2.0) % Neut # (Auto) 2.3 (1.4-6.5) 10^3/uL Lymph # (Auto) 2.5 (1.2-3.8) 10^3/uL [place] # (Auto) 0.6 (0.3-0.8) 10^3/uL Eos # (Auto) 0.1 (0.0-0.7) 10^3/uL Baso # (Auto) 0.0 (0.0-0.1) 10^3/uL Abs Immat Gran (auto) 0.01 (0.00-0.03) 10^3/uL Imm/Tot Granulo (auto) 0.2 (0.0-0.5) % Sodium 142 (136-145) mmol/L Potassium 3.7 (3.5-5.1) mmol/L Chloride 105 (98-107) mmol/L Carbon Dioxide 27.7 (21.0-32.0) mmol/L Anion Gap 13.0 BUN 5.0 L (7.0-18.0) mg/dL Creatinine 0.75 (0.70-1.30) mg/dL Est GFR ( Amer) >60 (>=60) Est GFR (Non-Af Amer) >60 (>=60) BUN/Creatinine Ratio 6.7 Glucose 89 (74-106) mg/dL Calcium 8.6 (8.5-10.1) mg/dL Urine Color Lt. yellow (YELLOW) Urine Clarity Clear (CLEAR) Urine pH 6.0 (5.0-9.0) Ur Specific [place] <=1.005 A (1.005-1.025) Urine Protein Negative (NEG/TRACE) mg/dL Urine Glucose (UA) Negative (NEGATIVE) mg/dL Urine Ketones Negative (NEGATIVE) mg/dL Urine Occult Blood Trace-i (NEGATIVE) Urine Nitrite Negative (NEGATIVE) Urine Bilirubin Negative (NEGATIVE) Urine Urobilinogen 0.2 (0.2-1.0) EU/dL Ur Leukocyte Esterase Large A (NEGATIVE) Urine RBC 2-5 A (0-2) #/HPF Urine WBC >100 A (NONE SEEN) #/HPF Ur Squamous Epith Cells Few A (NONE/RARE) #/LPF Urine Bacteria Small A (NONE SEEN) #/HPF Urine Mucus None seen (NONE SEEN) Ur Culture Indicated? Yes Salicylates 4.9 (<=19.9) mg/dL Urine Opiates Screen Negative (NEGATIVE) Ur Buprenorphine Scrn Negative (NEGATIVE) Ur Oxycodone Screen Negative (NEGATIVE) Urine Methadone Screen Negative (NEGATIVE) Acetaminophen <2.0 L (10.0-30.0) ug/mL Ur Barbiturates Screen Negative (NEGATIVE) U Tricyclic Antidepress Negative (NEGATIVE) Ur Phencyclidine Scrn Negative (NEGATIVE) Ur Amphetamines Screen Negative (NEGATIVE) U Methamphetamines Scrn Negative (NEGATIVE) U Benzodiazepines Scrn Negative (NEGATIVE) Urine Cocaine Screen Negative (NEGATIVE) U Cannabinoids Screen Negative (NEGATIVE) Ethanol Quant 294 mg/dL ECG Data Attestation: I personally reviewed and interpreted this ECG as follows: (EKG on my interpretation shows normal sinus rhythm with a rate of 68 and early repolarization) Discharge Plan Discharge Patient Disposition: Still a Patient
--- NOTE | 2023-10-26 10:43 | ECG_ITS ---
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
[2023-10-26 11:22] LABS: BUN Creatinine Ratio 6.7; Calcium 8.6 mg/dL (8.5-10.1); Carbon Dioxide 27.7 mmol/L (21.0-32.0); Chloride 105 mmol/L (98-107); Estimated GFR (African America >60 (>=60); Estimated GFR (Non-African Ame >60 (>=60); Glucose 89 mg/dL (74-106); Potassium 3.7 mmol/L (3.5-5.1); Sodium 142 mmol/L (136-145)
[2023-10-26 11:28] LABS: Basophils Percent Auto 0.5 % (0.2-2.0); Eosinophils Absolute Auto 0.1 10^3/uL (0.0-0.7); Eosinophils Percent Auto 1.4 % (0.9-7.0); Hematocrit 39.9 % (42.0-54.0); Hemoglobin 14.1 g/dL (14.0-18.0); Immature Granulocytes Abs Auto 0.01 10^3/uL (0.00-0.03); Immature Granulocytes Pct Auto 0.2 % (0.0-0.5); Lymphocytes Absolute Auto 2.5 10^3/uL (1.2-3.8); Mean Corpuscular HGB Conc 35.3 g/dL (29.9-35.2); Mean Platelet Volume 11.1 fL (9.5-13.5); Monocytes Absolute Auto 0.6 10^3/uL (0.3-0.8); Monocytes Percent Auto 11.1 % (1.7-12.0); Neutrophils Absolute Auto 2.3 10^3/uL (1.4-6.5); Neutrophils Percent Auto 40.8 % (43.0-75.0); Platelet Count 146 10^3/uL (150-450); Red Blood Count 4.03 10^6/uL (4.70-6.10); Red Cell Distribution Width 11.8 % (11.0-15.0); White Blood Count 5.5 10^3/uL (4.0-11.0)
--- OUTSIDE RECORDS SUMMARY | 2023-10-26 11:33 | XMS_ITS | CCD ---
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 Translations: [NASAL CONGESTION] Onset: 12-02-2021 Episodic Urinary tract infections (1 source) Urinary tract infection, site not specified; Translations: [UTI SITE NOT SPECIFIED] Onset: 03-06-2022 Episodic Results Test Name Value Interpretation Reference Range Facility [facility] 10-23-2023 Anion gap [Moles/Vol] 15 mmol/L Normal 6-16 [facility] Comment on above: Performed By: #### 2 [id number] #### [facility] [address] [place] [address] Calcium [Mass/Vol] 8.3 mg/dL Low 8.9-11.1 [facility] Comment on above: Performed By: #### 2 [id number] #### [facility] [address] [place] [address] Chloride [Moles/Vol] 106 mmol/L Normal 101-111 [facility] Comment on above: Performed By: #### 2 [id number] #### [facility] [address] [place] [address] CO2 [Moles/Vol] 24 mmol/L Normal 21-31 [facility] Comment on above: Performed By: #### 2 [id number] #### [facility] [address] [place] [address] Creatinine [Mass/Vol] 0.6 mg/dL Normal 0.5-1.3 [facility] Comment on above: Performed By: #### 2 [id number] #### [facility] [address] [place] [address] Glucose [Mass/Vol] 87 mg/dL Normal 55-199 [facility] Comment on above: Performed By: #### 2 [id number] #### [facility] [address] [place] [address] Potassium [Moles/Vol] 3.8 mmol/L Normal 3.5-5.3 [facility] Comment on above: Performed By: #### 2 [id number] #### [facility] [address] [place] [address] Sodium [Moles/Vol] 141 mmol/L Normal 135-145 [facility] Comment on above: Performed By: #### 2 [id number] #### [facility] [address] [place] [address] Urea nitrogen [Mass/Vol] 5 mg/dL Normal 5-21 [facility] Comment on above: Performed By: #### 2 [id number] #### [facility] [address] [place] [address] Urea nitrogen/Creatinine [Mass ratio] 8 No Units Low 10-20 [facility] Comment on above: Performed By: #### 2 [id number] #### [facility] [address] [place] [address] CBC w/ Auto Diffon 4 Basophils/100 WBC (Bld) 0.8 % Normal 0.0-2.0 [facility] Comment on above: Performed By: #### 2 [id number] #### [facility] [address] [place] [address] Basophils/Leukocytes Auto (Bld) [Pure # fraction] 0.0 E9/L Normal 0.0-0.2 [facility] Comment on above: Performed By: #### 2 [id number] #### [facility] [address] [place] [address] Eosinophils (Bld) [#/Vol] 0.1 E9/L Normal 0.0-0.5 [facility] Comment on above: Performed By: #### 2 [id number] #### [facility] [address] [place] [address] Eosinophils/100 WBC (Bld) 2.9 % Normal 0.0-8.0 [facility] Comment on above: Performed By: #### 2 [id number] #### [facility] [address] [place] [address] Erythrocyte distribution width (RBC) [Ratio] 12.3 % Normal 10.9-14.2 [facility] Comment on above: Performed By: #### 2 [id number] #### [facility] [address] [place] [address] Hematocrit (Bld) [Volume fraction] 42.3 % Normal 37.7-49.0 [facility] Comment on above: Performed By: #### 2 [id number] #### [facility] [address] [place] [address] Hemoglobin (Bld) [Mass/Vol] 14.4 g/dL Normal 13.5-17.5 [facility] Comment on above: Performed By: #### 2 [id number] #### [facility] [address] [place] [address] Lymphocytes (Bld) [#/Vol] 1.8 E9/L Normal 1.0-4.0 [facility] Comment on above: Performed By: #### 2 [id number] #### [facility] [address] [place] [address] Lymphocytes/100 WBC (Bld) 41.7 % Normal 14.0-50.0 [facility] Comment on above: Performed By: #### 2 [id number] #### [facility] [address] [place] [address] MCH (RBC) [Entitic mass] 34.5 pg High 27.0-34.0 [facility] Comment on above: Performed By: #### 2 [id number] #### [facility] [address] [place] [address] MCHC (RBC) [Mass/Vol] 34.1 g/dL Normal 31.4-36.0 [facility] Comment on above: Performed By: #### 2 [id number] #### [facility] [address] [place] [address] MCV (RBC) [Entitic vol] 101.2 fL High 80.0-100.0 [facility] Comment on above: Performed By: #### 2 [id number] #### [facility] [address] [place] [address] Monocytes (Bld) [#/Vol] 0.5 E9/L Normal 0.2-1.0 [facility] Comment on above: Performed By: #### 2 [id number] #### [facility] [address] [place] [address] Neutrophils (Bld) [#/Vol] 1.8 E9/L Low 2.0-7.5 [facility] Comment on above: Performed By: #### 2 326339 #### [facility] [address] [place] [address] Neutrophils/100 WBC (Bld) 43.6 % Normal 36.0-75.0 [facility] Comment on above: Performed By: #### 2 155862 #### [facility] [address] [place] [address] Platelet mean volume (Bld) [Entitic vol] 9.2 fL Normal 6.4-10.8 [facility] Comment on above: Performed By: #### 2 [id number] #### [facility] [address] [place] [address] Platelets (Bld) [#/Vol] 150.0 E9/L Normal 150.0-500. 0 [facility] Comment on above: Performed By: #### 2 [id number] #### [facility] [address] [place] [address] RBC (Bld) [#/Vol] 4.2 E12/L Low 4.3-5.9 [facility] Comment on above: Performed By: #### 2 [id number] #### [facility] [address] [place] [address] WBC corrected for nucl RBC Auto (Bld) [#/Vol] 4.2 E9/L Normal 4.0-11.0 [facility] Comment on above: Performed By: #### 2 [id number] #### [facility] [address] [place] [address] CHEMISTRYOrdered By: SYSTEM SYSTEM on 10-23-2023 Amphetamines Screen method >1000 ng/mL Ql (U) NEGATIVE 7 (10/23/23 11:31 AM) Normal NEGATIVE [facility] Comment on above: Interpretive Data: N egative Cutoff: <1000 ng/mL Barbiturates Screen Ql (U) NEGATIVE 8 (10/23/23 11:31 AM) Normal NEGATIVE [facility] Comment on above: Interpretive Data: N egative Cutoff: <200 ng/mL Benzodiazepines Ql (U) NEGATIVE 1 (10/23/23 11:31 AM) Normal NEGATIVE [facility] Comment on above: Interpretive Data: N egative Cutoff: <200 ng/mL Cannabinoids Screen Ql (U) NEGATIVE 6 (10/23/23 11:31 AM) Normal NEGATIVE [facility] Comment on above: Interpretive Data: N egative Cutoff: <50 ng/mL Cocaine Ql (U) NEGATIVE 2 (10/23/23 11:31 AM) Normal NEGATIVE [facility] Comment on above: Interpretive Data: N egative Cutoff: <300 ng/mL Opiates Screen Ql (U) NEGATIVE 4 (10/23/23 11:31 AM) Normal NEGATIVE [facility] Comment on above: Interpretive Data: N egative Cutoff: <300 ng/mL Phencyclidine Screen method >25 ng/mL Ql (U) NEGATIVE 5 (10/23/23 11:31 AM) Normal NEGATIVE [facility] Comment on above: Interpretive Data: N egative Cutoff: <25 ng/mL These drug screen results are to be used for medical (i.e., treatment) purposes only. Unconfirmed drug screening results must not be used for non-medical purposes (e.g., employment testing, legal testing). U Fentanyl NEGATIVE 13 (10/23/23 11:31 AM) Normal NEGATIVE [facility] Comment on above: Interpretive Data: N egative Cutoff: <5 ng/mL These drug screen results are to be used for medical (i.e., treatment) purposes only. Unconfirmed drug screening results must not be used for non-medical purposes (e.g., employment testing, legal testing). Albumin [Mass/Vol] 4.2 g/dL Normal 3.3 - 5.0 gm/dL [facility] Albumin/Globulin [Mass ratio] 1.6 {ratio} Normal 1.1 - 2.2 [facility] ALP [Catalytic activity/Vol] 61 [iU]/d Normal 21 - 98 Int._Unit/ L [facility] ALT No additional P-5'-P [Catalytic activity/Vol] 13 [iU]/d Normal 6 - 46 Int._Unit/ L [facility] Anion gap [Moles/Vol] 15 mmol/L Normal 6 - 16 mEq/L [facility] AST [Catalytic activity/Vol] 23 [iU]/d Normal 5 - 43 Int._Unit/ L [facility] Bilirubin [Mass/Vol] 0.4 mg/dL Normal 0.0 - 1 .1 mg/dL [facility] Bilirubin.direct [Mass/Vol] 0.2 mg/dL Normal 0.0 - 0.4 mg/dL [facility] Bilirubin.indirect [Mass or moles/Vol] 0.2 mg/dL Normal 0.1 - 0.9 mg/dL [facility] Calcium [Mass/Vol] 8.3 mg/dL Low 8.9 - 11. 1 mg/dL [facility] Chloride [Moles/Vol] 106 mmol/L Normal 101 - 1 11 mmol/L [facility] CO2 [Moles/Vol] 24 mmol/L Normal 21 - 31 mmol/L [facility] Creatinine [Mass/Vol] 0.6 mg/dL Normal 0.5 - 1.3 mg/dL [facility] eGFR 123 mL/min/1.73 m2 Normal >=59mL/mi n /1.73 m2 [facility] Ethanol Lvl 241 mg/dL Invalid Interpretation Code <=11mg/dL [facility] Comment on above: Result Comment: Crit ical Result S_[id number] Called to and read back by: PAVEL SABILLON at: 10/23/2023 11:01:12 by:BLAKE Globulin (S) [Mass/Vol] 2.6 g/dL Normal 1.4 - 4.0 gm/dL [facility] Glucose [Mass/Vol] 87 mg/dL Normal 55 - 199 mg/dL [facility] Lipase [Catalytic activity/Vol] 22 U/L Normal 13 - 58 unit/L [facility] Potassium [Moles/Vol] 3.8 mmol/L Normal 3.5 - 5.3 mmol/L [facility] Protein [Mass/Vol] 6.8 g/dL Normal 6.0 - 7.8 gm/dL [facility] Sodium [Moles/Vol] 141 mmol/L Normal 135 - 145 mmol/L [facility] Urea nitrogen [Mass/Vol] 5 mg/dL Normal 5 - 21 mg/dL [facility] Urea nitrogen/Creatinine [Mass ratio] 8 mg/mg Low 10 - 20 [facility] COAGULATIONOrdered By: Aggie Mckinley on 10-23-2023 aPTT Coag (PPP) [Time] 34.7 s Normal 25.1 - 36.5 second(s) [facility] Comment on above: Interpretive Data: Gallito pereira 15 days - 4 weeks 1 - 5 months 6 - 11 months 1 - 5 years 6 - 10 years 11 - 17 years PTT Mean: 35.4 (27.6-45.6) Mean: 33.5 (24.8-40.7) Mean: 32.4 (25.1-40.7) Mean: 31.6 (24.0-39.2) Mean: 31.6 (26.9-38.7) Mean: 31.0 (24.6-38.4) Pediatric Reference ranges were obtained from a study by Tam Valdes et al. prepared from 1437 samples obtained at 7 different centers using the same coagulation reagent and instrumentation as [facility]. Currently there are no coagulation studies available worldwide for children to 14 days, and no normal ranges. Heparin therapeutic range (represented by Anti-Factor Xa activity of 0.2 - 0.4 U/mL) corresponds to PTT of 56.6 - 109.0 sec. INR Coag (PPP) [Relative time] 1.11 {INR} Invalid Interpretation Code [facility] Comment on above: Interpretive Data: I NR results are specifically intended to assess patients stabilized on long-term Anticoagulation therapy suggested INR s Less Intensive Anticoagulation 2.0 3.0 Conventional Range 3.0 4.5 PT Coag (PPP) [Time] 12.5 s Normal 9.4 - 1 2.5 second(s) [facility] Comment on above: Interpretive Data: 1 5 days - 4 weeks 1 - 5 months 6 -11 months 1-5 years 6-10 years 11 -17 years Mean: 11.2 (9.5-12.6) Mean: 11.0 (9.7-12.8) Mean: 11.0 (9.8-13.0) Mean: 11.3 (9.9-13.4) Mean: 11.7 (10.0-14.6) Mean: 11.8 (10.0 - 14.1) Pediatric Reference ranges were obtained from a study by Tam Valdes et al. prepared from 1437 samples obtained at 7 different centers using the same coagulation reagent and instrumentation as [facility]. Currently there are no coagulation studies available worldwide for children to 14 days, and no normal ranges. Consent for Treatmenton 10-05 Consent for Treatment [id number] Normal [facility] Discharge Instructionson Discharge Instructions [id number] Normal [facility] ED Clinical Summaryon 2023 ED Clinical Summary (Inserted Image. Hsy ble to display) [place] [id number] ED Clinical Summary Person Information Name: BALTAZAR PHIPPS Ilene/[facility] Age: 42 Years : 1980 Sex: Male Language: Danish PCP: DARRELL IRVIN DO Marital Status: Single Visit Id: Visit Reason: Weakness or fatigue; Paresthesia; Seizure; COUGH, FATIGUE, SEIZURE ON SUNDAY Speciality: Acuity: 3 Enc Type: Emergency Med Service: Emergency Arrival: 10/23/2023 08:42:45 Discharge: 10/23/2023 12:55:33 LOS: 000 04:13 Checkin: 10/23/2023 08:42:45 Checkout: 10/23/2023 12:55:33 Dispo Type: Home (Routine DC) EVENTS: Event Name Event Status Request Date/Time Start Date/Time Complete Date/Time Arrive Complete 10/23/2023 08:42:45 10/23/2023 08:42:45 10/23/2023 08:42:45 Document Home Meds Request 10/23/2023 08:42:45 Triage Complete 10/23/2023 08:42:45 10/23/2023 09:03:33 10/23/2023 09:03:33 Bed Assign Complete 10/23/2023 08:55:44 10/23/2023 08:55:44 10/23/2023 08:55:44 Dr Exam Complete 10/23/2023 08:55:44 10/23/2023 09:03:56 10/23/2023 09:03:56 RN Exam Complete 10/23/2023 08:55:44 10/23/2023 09:27:46 10/23/2023 09:27:46 EKG Complete 10/23/2023 09:00:36 10/23/2023 09:06:54 Registration Complete 10/23/2023 09:03:56 10/23/2023 10:09:22 10/23/2023 10:09:22 Dr Exam Complete 10/23/2023 09:04:33 10/23/2023 09:04:33 10/23/2023 09:04:33 Dr Exam Complete 10/23/2023 09:08:56 10/23/2023 09:08:56 10/23/2023 09:08:56 Pending Labs Complete 10/23/2023 09:23:20 10/23/2023 12:01:02 Lab Complete 10/23/2023 09:23:20 10/23/2023 12:01:02 Urine Collect Complete 10/23/2023 09:23:20 10/23/2023 12:01:02 Patient Care Request 10/23/2023 09:23:20 X-Ray Complete 10/23/2023 09:23:20 10/23/2023 09:28:30 10/23/2023 09:45:33 Fall Risk Request 10/23/2023 09:27:47 Pending Labs Complete 10/23/2023 09:34:12 10/23/2023 12:34:36 Lab Cancel 10/23/2023 09:34:12 10/23/2023 09:38:40 Meds Admin Complete 10/23/2023 09:37:31 10/23/2023 10:30:13 Pending Labs Complete 10/23/2023 09:38:18 10/23/2023 09:38:18 10/23/2023 10:18:26 Lab Complete 10/23/2023 09:38:18 10/23/2023 09:38:18 10/23/2023 10:18:26 Pending Labs Complete 10/23/2023 09:39:13 10/23/2023 09:39:13 10/23/2023 10:18:26 Lab Complete 10/23/2023 09:39:13 10/23/2023 09:39:13 10/23/2023 10:18:26 Wet Read Complete 10/23/2023 09:45:33 10/23/2023 09:56:05 10/23/2023 09:56:05 Pending Labs Complete 10/23/2023 09:45:44 10/23/2023 09:45:44 10/23/2023 09:45:44 Reg Complete Request 10/23/2023 10:09:22 Reg Bed Request Complete 10/23/2023 10:09:22 10/23/2023 10:09:22 10/23/2023 10:09:22 Discharge Complete 10/23/2023 12:40:49 10/23/2023 12:55:40 10/23/2023 12:55:40 Transfer Complete 10/23/2023 12:55:40 10/23/2023 12:55:40 10/23/2023 12:55:40 ADDRESS: [address] [place] [id number] [facility] DOC NOTES: MEDICAL INFORMATION: Prescriptions Given: Medications to Continue with No Changes Other Medications fluticasone nasal (Flonase 0.05 mg/inh nasal spray) 2 Sprays Nasal Inhalation every day. each nostril. Refills: 0. loratadine (loratadine 10 mg Tab) 1 Tablets By Mouth every day. PATIENT EDUCATION INFORMATION: Instructions: Seizure, Adult Follow up: With: Address: When: [facility], [address] [place] [address] Business (1) In 3 days 10/26/2023 With: Address: When: [place] [address] Business (1) In 3 days DIAGNOSIS: 1:Seizure disorder; 2:Paresthesia of left arm and leg; 3:Alcohol use Normal [facility] ED Patient Education Noteon 10-23-2023 ED Patient Education Note Neurology Seizure, Adult A seizure is a sudden burst of abnormal electrical and chemical activity in the brain. Seizures usually last from 30 seconds to 2 minutes. The abnormal activity temporarily interrupts normal brain function. Many types of seizures can affect adults. A seizure can cause many different symptoms depending on where in the brain it starts. What are the causes? Common causes of this condition include: ? Fever or infection. ? Brain injury, head trauma, bleeding in the brain, or a brain tumor. ? Low levels of blood sugar or salt (sodium). ? Kidney problems or liver problems. ? Metabolic disorders or other conditions that are passed from parent to child (are inherited). ? Reaction to a substance, such as a drug or a medicine, or suddenly stopping the use of a substance (withdrawal). ? A stroke. ? Developmental disorders such as autism spectrum disorder or cerebral palsy. In some cases, the cause of a seizure may not be known. Some people who have a seizure never have another one. A person who has repeated seizures over time without a clear cause has a condition called epilepsy. What increases the risk? You are more likely to develop this condition if: ? You have a family history of epilepsy. ? You have had a tonic?clonic seizure before. This type of seizure causes tightening (contraction) of the muscles of the whole body and loss of consciousness. ? You have a history of head trauma, lack of oxygen at , or strokes. What are the signs or symptoms? There are many different types of seizures. The symptoms vary depending on the type of seizure you have. Symptoms occur during the seizure. They may also occur before a seizure (aura) and after a seizure (postictal). Symptoms may include the following: Symptoms during a seizure ? Uncontrollable shaking (convulsions) with fast, jerky movements of muscles. ? Stiffening of the body. ? Breathing problems. ? Confusion, staring, or unresponsiveness. ? Head nodding, eye blinking or fluttering, or rapid eye movements. ? Drooling, grunting, or making clicking sounds with your mouth. ? Loss of bladder control and bowel control. Symptoms before a seizure ? Fear or anxiety. ? Nausea. ? Vertigo. This is a feeling like: ? You are moving when you are not. ? Your surroundings are moving when they are not. ? D?j? vu. This is a feeling of having seen or heard something before. ? Odd tastes or smells. ? Changes in vision, such as seeing flashing lights or spots. Symptoms after a seizure ? Confusion. ? Sleepiness. ? Headache. ? Sore muscles. How is this diagnosed? This condition may be diagnosed based on: ? A description of your symptoms. Video of your seizures can be helpful. ? Your medical history. ? A physical exam. You may also have tests, including: ? Blood tests. ? CT scan. ? MRI. ? Electroencephalogram (EEG). This test measures electrical activity in the brain. An EEG can predict whether seizures will return. ? A spinal tap, also called a lumbar puncture. This is the removal and testing of fluid that surrounds the brain and spinal cord. How is this treated? Most seizures will stop on their own in less than 5 minutes, and no treatment is needed. Seizures that last longer than 5 minutes will usually need treatment. Seizures may be treated with: ? Medicines given through an IV. ? Avoiding known triggers, such as medicines that you take for another condition. ? Medicines to control seizures or prevent future seizures (antiepileptics), if epilepsy caused your seizures. ? Medical devices to prevent and control seizures. ? Surgery to stop seizures or to reduce how often seizures happen, if you have epilepsy that does not respond to medicines. ? A diet low in carbohydrates and high in fat (ketogenic diet). Follow these instructions at home: Medicines ? Take xhar-xzz-ogviiur and prescription medicines only as told by your health care provider. ? Avoid any substances that may prevent your medicine from working properly, such as alcohol. Activity ? Follow instructions about activities, such as driving or swimming, that would be dangerous if you had another seizure. Wait until your health care provider says it is safe to do them. ? If you live in the [place] check with your local department of motor vehicles (DMV) to find out about local driving laws. Each state has specific rules about when you can legally drive again. ? Get enough rest. Lack of sleep can make seizures more likely to occur. Educating others ? Teach friends and family what to do if you have a seizure. They should: ? Help you get down to the ground, to prevent a fall. ? Cushion your head and move items away from your body. ? Loosen any tight clothing around your neck. ? Turn you on your side. If you vomit, this helps keep your airway clear. ? Know whether or not you need emergency care. ? Stay with you until you r (more content not included)... Normal [facility] ED Patient Summaryon 024 ED Patient Summary (Inserted Image. Shy ble to display) [address] [address] Patient Discharge Instructions Person Information Name: BALTAZAR PHIPPS Age: 42 Years Arrival Date: 10/23/2023 08:42:45 Discharge Diagnosis: 1:Seizure disorder; 2:Paresthesia of left arm and leg; 3:Alcohol use Primary Care Physician: DARRELL IRVIN DO Provider Information Primary Provider: Neil Ventura DO Advanced Floor Attendant:Richar Marie PA-C. The exam and treatment you received in the Emergency Department were for an urgent problem and are not intended as complete care. It is important that you follow up with a doctor, nurse practitioner, or physician?s assistant loan processor for ongoing care. If your symptoms become worse or you do not improve as expected and you are unable to reach your usual health care provider, you should return to the Emergency Department. We are available 24 hours a day. BALTAZAR PHIPPS has been given the following list of patient education materials, prescriptions and follow-up instructions: Follow-up Instructions: With: Address: When: [facility], [place] [address] Business (1) In 3 days 10/26/2023 With: Address: When: DARRELL IRVIN [address] [place] [id number] Business (1) In 3 days In the event that this physician does not participate in your insurance network, please consult with your insurance company to find a nearby participating provider. Patient Education Materials: Seizure, Adult A MESSAGE TO ALL PATIENTS REGARDING OPIOIDS PRESCRIPTION OPIOIDS: WHAT YOU NEED TO KNOW Prescription opioids can be used to help relieve knyqhpbr-rs-fvpwuw pain and are often prescribed following a surgery or injury, or for certain health conditions. These medications can be an important part of the treatment but also come with serious risks. It is important to work with your healthcare provider to make sure you are getting the safest, most effective care. WHAT ARE THE RISKS AND SIDE EFFECTS OF OPIOID USE? Prescription opioids carry serious risks of addiction and overdose, especially with prolonged use. An opioid overdose, often marked by slowed breathing, can cause sudden . The use of prescription opioids can have a number of side effects as well, even when taken as directed: ? Tolerance?meaning you might need to take more of the medication for the same pain relief ? Physical dependence?meaning you have symptoms of withdrawal when a medication is stopped ? Increased sensitivity to pain ? Constipation ? Nausea, vomiting, and dry mouth ? Sleepiness and dizziness ? Confusion ? Depression ? Low levels of testosterone that can result in lower sex drive, energy, and strength ? Itching and sweating RISKS ARE GREATER WITH: ? History of drug misuse, substance use disorder, or overdose ? Mental health conditions (such as depression or anxiety) ? Sleep apnea ? Older age (65 years and older) ? Avoid alcohol while taking prescription opioids. Also, unless specifically advised by your health care provider, medications to avoid include: ? Benzodiazepines (such as Xanax or Valium) ? Muscle relaxants (such as Soma or Flexeril) ? Hypnotics (such as Ambien or Lunesta) ? Other prescription opioids KNOW YOUR OPTIONS Talk to your health care provider about ways to manage your pain that don?t involve prescription opioids. Some of these options may actually work better and have fewer risks and side effects. Options may include: ? Pain relievers such as acetaminophen, ibuprofen, and naproxen ? Some medication that are also used for depression or seizures ? Physical therapy and exercise ? Cognitive behavioral therapy, a psychological, goal-directed approach, in which patients learn how to modify physical, behavioral, and emotional triggers of pain and stress. IF YOU ARE PRESCRIBED OPIOIDS FOR PAIN: ? Never take opioids in greater amounts or more often than prescribed. ? Follow up with your primary health care provider. o Work together to create a plan on how to manage your pain. o Talk about ways to help manage your pain that don?t involve prescription opioids. o Talk about any and all concerns and side effects. ? Help prevent misuse and abuse o Never sell or share prescription opioids. o Never use another person?s prescription opioids. ? Store prescription opioids in a secure place and out of reach of others (this may include visitors, children, friends, and family). ? Safely dispose of unused prescription opioids: Find your community drug take-back program or your pharmacy mail-back program, or flush them down the toilet, following guidance from the Food and Drug Administration (www.fda.gov/Drugs/ResourcesF orYou). ? Visit www.cdc.gov/drugoverdose to learn about the risks of opioids abuse and overdose. ? If you believ (more content not included)... Normal [facility] Ethanolon 10-23-2023 Ethanol Lvl 241 mg/dL Abnormal <=11 [facility] Comment on above: Result Comment: Criibeth ical Result S_ETOH:241 Called to and read back by: PAVEL SABILLON at: 10/23/2023 11:01:12 by:BLAKE Performed By: #### 2 [id number] #### [facility] [address] [place] [address] HEMATOLOGYOrdered By: SYSTEM SYSTEM on 10-23-2023 Basophils/100 WBC (Bld) 0.8 % Normal 0.0 - 2.0 % Remisol Heme Basophils/Leukocytes Auto (Bld) [Pure # fraction] 0.0 E9/L Normal 0.0 - 0.2 E9/L Remisol Heme Eosinophils (Bld) [#/Vol] 0.1 E9/L Normal 0.0 - 0.5 E9/L Rem[facility] Heme Eosinophils/100 WBC (Bld) 2.9 % Normal 0.0 - 8.0 % Remisol Heme Erythrocyte distribution width (RBC) [Ratio] 12.3 % Normal 10.9 - 14.2 % Remisol Heme Hematocrit (Bld) [Volume fraction] 42.3 % Normal 37.7 - 49.0 % Remisol Heme Hemoglobin (Bld) [Mass/Vol] 14.4 g/dL Normal 13.5 - 17.5 gm/dL [facility]e Lymphocytes (Bld) [#/Vol] 1.8 E9/L Normal 1.0 - 4.0 E9/L [facility] Heme Lymphocytes/100 WBC (Bld) 41.7 % Normal 14.0 - 50.0 % Remisol Heme MCH (RBC) [Entitic mass] 34.5 pg High 27.0 - 34.0 pg Remisol Heme MCHC (RBC) [Mass/Vol] 34.1 g/dL Normal 31.4 - 36.0 gm/dL [facility]e MCV (RBC) [Entitic vol] 101.2 fL High 80.0 - 100.0 fL [facility]e Monocytes (Bld) [#/Vol] 0.5 E9/L Normal 0.2 - 1.0 E9/L [facility]e Monocytes/100 WBC (Bld) 11.0 % Normal 4.0 - 14.0 % Rem[facility] Heme Neutrophils (Bld) [#/Vol] 1.8 E9/L Low 2.0 - 7.5 E9/L [facility] Heme Neutrophils/100 WBC (Bld) 43.6 % Normal 36.0 - 75.0 % [facility]e Platelet mean volume (Bld) [Entitic vol] 9.2 fL Normal 6.4 - 10.8 fL [facility]e Platelets (Bld) [#/Vol] 150.0 E9/L Normal 150.0 - 500.0 E9/L [facility] Heme RBC (Bld) [#/Vol] 4.2 E12/L Low 4.3 - 5.9 E12/L [facility] WBC corrected for nucl RBC Auto (Bld) [#/Vol] 4.2 E9/L Normal 4.0 - 11.0 E9/L [facility] Heme Hep Func Panelon 10-23-2023 Albumin [Mass/Vol] 4.2 g/dL Normal 3.3-5.0 [facility] Comment on above: Performed By: #### 2 [id number] #### [facility] [address] [place] [address] Albumin/Globulin (S) [Mass conc ratio] 1.6 Normal 1.1-2.2 [facility] Comment on above: Performed By: #### 2 [id number] #### [facility] [address] [place] [address] ALP [Catalytic activity/Vol] 61 Int._Unit/L Normal 21-98 [facility] Comment on above: Performed By: #### 2 [id number] #### [facility] [address] [place] [address] ALT No additional P-5'-P [Catalytic activity/Vol] 13 Int._Unit/L Normal 6-46 [facility] Comment on above: Performed By: #### 2 [id number] #### [facility] [address] [place] [address] AST [Catalytic activity/Vol] 23 Int._Unit/L Normal 5-43 [facility] Comment on above: Performed By: #### 2 [id number] #### [facility] [address] [place] [address] Bilirubin [Mass/Vol] 0.4 mg/dL Normal 0.0-1.1 [facility] Comment on above: Performed By: #### 2 [id number] #### [facility] [address] [place] [address] Bilirubin.direct [Mass/Vol] 0.2 mg/dL Normal 0.0-0.4 [facility] Comment on above: Performed By: #### 2 [id number] #### [facility] [address] [place] [address] Bilirubin.indirect [Mass or moles/Vol] 0.2 mg/dL Normal 0.1-0.9 [facility] Comment on above: Performed By: #### 2 [id number] #### [facility] [address] [place] [address] Globulin (S) [Mass/Vol] 2.6 g/dL Normal 1.4-4.0 [facility] Comment on above: Performed By: #### 2 [id number] #### [facility] [address] [place] [address] Protein [Mass/Vol] 6.8 g/dL Normal 6.0-7.8 [facility] Comment on above: Performed By: #### 2 [id number] #### [facility] [address] [place] [address] Lipase Levelon 10-23-2023 Lipase [Catalytic activity/Vol] 22 U/L Normal 13-58 [facility] Comment on above: Performed By: #### 2 [id number] #### [facility] [address] [place] [address] Outside Recordson 10-23-2023 Outside Records [id number]#1.00OTGTIFF [facility] PT & PTTon 10-23-2023 aPTT Coag (PPP) [Time] 34.7 second(s) Normal 25.1-36.5 [facility] Comment on above: Result Comment: Para meter 15 days - 4 weeks 1 - 5 months 6 - 11 months 1 - 5 years 6 - 10 years 11 - 17 years PTT Mean: 35.4 (27.6-45.6) Mean: 33.5 (24.8-40.7) Mean: 32.4 (25.1-40.7) Mean: 31.6 (24.0-39.2) Mean: 31.6 (26.9-38.7) Mean: 31.0 (24.6-38.4) Pediatric Reference ranges were obtained from a study by Tam Valdes et al. prepared from 1437 samples obtained at 7 different centers using the same coagulation reagent and instrumentation as [facility]. Currently there are no coagulation studies available worldwide for children to 14 days, and no normal ranges. Heparin therapeutic range (represented by Anti-Factor Xa activity of 0.2 - 0.4 U/mL) corresponds to PTT of 56.6 - 109.0 sec. Performed By: #### 1 [id number] #### [facility] [address] [place] [address] INR Coag (PPP) [Relative time] 1.11 {INR} Invalid Interpretation Code [facility] Comment on above: Result Comment: INR results are specifically intended to assess patients stabilized on long-term Anticoagulation therapy suggested INR?s ?Less Intensive Anticoagulation? 2.0 ? 3.0 Conventional Range 3.0 ? 4.5 Performed By: #### 1 [id number] #### [facility] [address] [place] [address] PT Coag (PPP) [Time] 12.5 second(s) Normal 9.4-12.5 [facility] Comment on above: Result Comment: 15 d ays - 4 weeks 1 - 5 months 6 -11 months 1- 5 years 6-10 years 11 -17 years Mean: 11.2 (9.5-12.6) Mean: 11.0 (9.7-12.8) Mean: 11.0 (9.8-13.0) Mean: 11.3 (9.9-13.4) Mean: 11.7 (10.0-14.6) Mean: 11.8 (10.0 - 14.1) Pediatric Reference ranges were obtained from a study by markie Garcia al. prepared from 1437 samples obtained at 7 different centers using the same coagulation reagent and instrumentation as [facility]. Currently there are no coagulation studies available worldwide for children to 14 days, and no normal ranges. Performed By: #### 1 [id number] #### [facility] [address] [place] [address] Rad - Other Radiology Report on 10-23-2023 Rad - Other Radiology Report [id number]#1.00OTGTIFF [facility] Rad - Other Radiology Report [id number]#1.00OTGTIFF Normal [facility] U Drug Screenon 10-23-2023 Amphetamines Screen method >1000 ng/mL Ql (U) Negative Normal NEGATIVE [facility] Comment on above: Result Comment: Nega tive Cutoff: <1000 ng/mL Performed By: #### 2 [id number] #### [facility] [address] [place] [address] Barbiturates Screen Ql (U) Negative Normal NEGATIVE [facility] Comment on above: Result Comment: Nega tive Cutoff: <200 ng/mL Performed By: #### 2 [id number] #### [facility] [address] [place] [address] Benzodiazepines Ql (U) Negative Normal NEGATIVE [facility] Comment on above: Result Comment: Nega tive Cutoff: <200 ng/mL Performed By: #### 2 [id number] #### [facility] [address] [place] [address] Cannabinoids Screen Ql (U) Negative Normal NEGATIVE [facility] Comment on above: Result Comment: Nega tive Cutoff: <50 ng/mL Performed By: #### 2 [id number] #### [facility] [address] [place] [address] Cocaine Ql (U) Negative Normal NEGATIVE [facility] Comment on above: Result Comment: Nega tive Cutoff: <300 ng/mL Performed By: #### 2 [id number] #### [facility] [address] [place] [address] Opiates Screen Ql (U) Negative Normal NEGATIVE [facility] Comment on above: Result Comment: Nega tive Cutoff: <300 ng/mL Performed By: #### 2 [id number] #### [facility] [address] [place] [address] Phencyclidine Screen method >25 ng/mL Ql (U) Negative Normal NEGATIVE [facility] Comment on above: Result Comment: Nega tive Cutoff: <25 ng/mL These drug screen results are to be used for medical (i.e., treatment) purposes only. Unconfirmed drug screening results must not be used for non-medical purposes (e.g., employment testing, legal testing). Performed By: #### 2 [id number] #### [facility] [address] [place] [address] U Fentanyl Negative Normal NEGATIVE [facility] Comment on above: Result Comment: Nega tive Cutoff: <5 ng/mL These drug screen results are to be used for medical (i.e., treatment) purposes only. Unconfirmed drug screening results must not be used for non-medical purposes (e.g., employment testing, legal testing). Performed By: #### 2 [id number] #### [facility] [address] [place] [address] UA with Cult Rflxon 10-23-19 24 Bilirubin Ql (U) Negative Normal Negative [facility] Comment on above: Performed By: #### 4 [id number] #### [facility] [address] [place] [address] Clarity (U) Clear Normal Clear [facility] Comment on above: Performed By: #### 4 [id number] #### [facility] [address] [place] [address] Color (U) Colorless Abnormal Yellow [facility] Comment on above: Result Comment: Micr oscopic readings are only performed on those samples that meet specific criteria set forth by [facility]. Performed By: #### 4 [id number] #### [facility] [address] [place] [address] Glucose Ql (U) Negative Normal Negative [facility] Comment on above: Performed By: #### 4 [id number] #### [facility] [address] [place] [address] Hemoglobin Auto test strip (U) [Mass/Vol] Negative Normal Negative [facility] Comment on above: Performed By: #### 4 [id number] #### [facility] [address] [place] [address] Ketones Auto test strip Ql (U) Negative Normal Negative [facility] Comment on above: Performed By: #### 4 [id number] #### [facility] [address] [place] [address] Leukocyte esterase Auto test strip Ql (U) Negative Normal Negative [facility] Comment on above: Performed By: #### 4 [id number] #### [facility] [address] [place] [address] Nitrite Auto test strip Ql (U) Negative Normal Negative [facility] Comment on above: Performed By: #### 4 [id number] #### [facility] [address] [place] [address] pH (U) 5.5 [pH] Invalid Interpretation Code 5.0-9.0 [facility] Comment on above: Performed By: #### 4 [id number] #### [facility] [address] [place] [address] Protein Ql (U) Negative Normal Negative [facility] Comment on above: Performed By: #### 4 [id number] #### [facility] [address] [place] [address] Specific gravity (U) [Rel density] 1.006 Invalid Interpretation Code 1.005-1.03 0 [facility] Comment on above: Performed By: #### 4 [id number] #### [facility] [address] [place] [address] Urobilinogen (U) [Mass/Vol] Negative Normal Negative [facility] Comment on above: Performed By: #### 4 [id number] #### [facility] [address] [place] [address] Bacteria Auto Ql (U) Trace Normal Trace Fish [facility] Comment on above: Performed By: #### 4 [id number] #### [facility] [address] [place] [address] RBC Ql (U) 0-3 Normal 0-3 [facility] Comment on above: Performed By: #### 4 [id number] #### [facility] [address] [place] [address] Mucus Auto Ql (U) Trace Normal Negative [facility] Comment on above: Performed By: #### 4 [id number] #### [facility] [address] [place] [address] WBC Auto (Urine sed) [#/Area] 0-5 Normal 0-5 [facility] Comment on above: Performed By: #### 4 [id number] #### [facility] [address] [place] [address] Type of Urine collection method Clean Catch Normal [facility] Comment on above: Performed By: #### 4 [id number] #### [facility] [address] [place] [address] URINALYSISOrdered By: SYSTEM SYSTEM on 10-23-2023 Bacteria Auto Ql (U) Trace /HPF Normal Trace/HPF [facility] UA Auto SS Bilirubin Ql (U) Negative Normal Negativemg /dL [facility] UA Auto SS Clarity (U) Clear (10/23/23 11:31 AM) Normal Clear [facility] UA Auto SS Color (U) Colorless 3 *ABN* (10/23/23 11:31 AM) Invalid Interpretation Code Yellow [facility] UA Auto SS Comment on above: Interpretive Data: M icroscopic readings are only performed on those samples that meet specific criteria set forth by [facility]. Glucose Ql (U) Negative Normal Negativemg /dL [facility] UA Auto SS Hemoglobin Auto test strip (U) [Mass/Vol] Negative Normal Negativemg /dL [facility] UA Auto SS Ketones Auto test strip Ql (U) Negative Normal Negativemg /dL [facility] UA Auto SS Leukocyte esterase Auto test strip Ql (U) Negative Normal NegativeLe u/uL [facility] UA Auto SS Mucus Auto Ql (U) Trace graded/LPF Normal Negati vegr aded/LPF [facility] UA Auto SS Nitrite Auto test strip Ql (U) Negative Normal Negativemg /dL [facility] UA Auto SS pH (U) 5.5 *NA* (10/23/23 11:31 AM) Invalid Interpretation Code 5.0 - 9.0 [facility] UA Auto SS Protein Ql (U) Negative Normal Negativemg /dL [facility] UA Auto SS RBC Ql (U) 0-3 graded/HPF Normal 0-3graded/ HPF [facility] UA Auto SS Specific gravity (U) [Rel density] 1.006 *NA* (10/23/23 11:31 AM) Invalid Interpretation Code 1.005 - 1.030 [facility] UA Auto SS Urobilinogen (U) [Mass/Vol] Negative Normal Negativemg /dL [facility] UA Auto SS WBC Auto (Urine sed) [#/Area] 0-5 graded/HPF Normal 0-5graded/ HPF [facility] UA Auto SS URINALYSISOrdered By: Richar Marie on 10-23-2023 UA Spec Desc Clean Catch (10/23/23 11:31 AM) Normal [facility] UA Auto SS XR Chest 2 Viewson XR Chest 2 Views Exam Date/Time: 10/23/2023 09:45 EDT Reason for Exam: Shortness of breath (SOB) Report IMPRESSION: NO EVIDENCE OF ACUTE CHEST DISEASE. CLINICAL HISTORY: Shortness of breath (SOB). Left-sided chest pain. COMMENT: The heart is normal in size. The mediastinum is unremarkable. The lungs appear hyperinflated. No infiltration nor pleural effusion is evident. Ordering Provider: Richar Marie FINAL REPORT Dictated: 10/23/2023 10:08 am Ramu Rosales M.D. Signed (Electronic Signature): 10/23/2023 10:08 am Signed by: Ramu Rosales M.D. Transcribed by: LOI Technologist: NITA Technical Comments Radiation Dose: Ka,r in mGy = na DAP = na Normal [facility] eGFRon 10-23-2023 eGFR 123 mL/min/1.73 m2 Normal >=59 [facility] Comment on above: Order Comment: Order added by Discern Expert. Performed By: #### 1 [id number] #### [facility] [address] [place] [address] Outside Recordson 10-10-2023 Outside Records [id number]#[facility]/Specialist Note on 10-08-2023 Consultation/Speciali st Note [id number]#[facility] - [facility] 024 ED Note - Provider [id number]#1.[facility] ECG 12 lead ECGon 10-02-2023 ECG 12 lead ECG [facility] Main [address] [address] Electrocardiograph Report Signed Patient: Baltazar Phipps MR#: [id number] 06 : 1980 Acct:[id number] Age/Sex: 42 / M ADM Date: 10/01/23 Loc: Room: [address] [place] [address] Type: ADM IN Attending Dr: Chris Mcgregor MD Ordering Provider: Chris Mcgregor MD Date of Service: 10/02/23 ECG/ECG 12 lead ECG: antipsychotic therapy Copies to: Test Reason : Blood Pressure : / mmHG Vent. Rate : 066 BPM Atrial Rate : 066 BPM P-R Int : 100 ms QRS Dur : 090 ms QT Int : 404 ms P-R-T Axes : -10 087 076 degrees QTc Int : 423 ms Sinus rhythm with short PA Nonspecific ST abnormality Abnormal ECG When compared with ECG of 22-JUN-2021 09:56, QRS axis shifted right ST elevation has replaced ST depression in Inferior leads ST no longer elevated in Lateral leads T wave inversion no longer evident in Inferior leads Confirmed by Rohan Rosas ([id number]) on 10/02/2023 10:09:41 PM Referred By: Electronically Signed By:Rohan Rosas Transcribed By: MUS Signed By Rohan Rosas MD 10/02/232208 Normal [facility] Alanine aminotransferase [En zymatic activity/volume] in Serum or PlasmaOrdered By: Neil Nieves on 10-01-2023 ALT [Catalytic activity/Vol] 11 U/L Normal 7-52 [facility] Comment on above: Performed By: #### L IPID, ETOH, CBC, [id number], TSH3 wRFLX, CMP #### [facility] [address] [id number] [place] Albumin [Mass/volume] in Ser um or Plasma by Bromocresol green (BCG) dye binding methoOrdered By: Neil Nieves on 10-01-2023 Albumin BCG dye [Mass/Vol] 4.4 g/dL 3.5-5.7 [facility] Alkaline phosphatase [Enzyma tic activity/volume] in Serum or PlasmaOrdered By: Neil Nieves on 10-01-2023 ALP [Catalytic activity/Vol] 49 U/L Normal 34-104 [facility] Comment on above: Performed By: #### L IPID, ETOH, CBC, [id number], TSH3 wRFLX, CMP #### [facility] [address] [id number] [place] Amphetamine Screen Ql (U)Ord ered By: Neil Nieves on 10-01-2023 Amphetamines Ql (U) Negative Negative [facility] Aspartate aminotransferase [ Enzymatic activity/volume] in Serum or PlasmaOrdered By: Neil Nieves on 10-01-2023 AST [Catalytic activity/Vol] 20 U/L Normal 13-39 [facility] Comment on above: Performed By: #### L IPID, ETOH, CBC, [id number], TSH3 wRFLX, CMP #### [facility] [address] [place] [address] Automated basophil %Ordered By: Neil Nieves on 10-01-2023 Basophils/100 WBC (Bld) 0.6 % Normal . [facility] Comment on above: Performed By: #### L IPID, ETOH, CBC, [id number], TSH3 wRFLX, CMP #### [address] Automated basophil countOrde red By: Neil Nieves on 10-01-2023 Basophils (Bld) [#/Vol] 0.0 10*3/uL Normal 0.0-0.2 [facility] Comment on above: Result Comment: PERF ORMED BY: [place] [address] PATHOLOGIST PRINT SUPPORT SPECIALIST MEE ALVAREZ M.D. Performed By: #### L IPID, ETOH, CBC, [id number], TSH3 wRFLX, CMP #### [address] Automated blood monocyte cou ntOrdered By: Neil Nieves on 10-01-2023 Monocytes (Bld) [#/Vol] 0.7 10*3/uL Normal 0.0-0.8 [facility] Comment on above: Performed By: #### L IPID, ETOH, CBC, [id number], TSH3 wRFLX, CMP #### [address] Automated eosinophil %Ordere d By: Neil Nieves on 10-01-2023 Eosinophils/100 WBC (Bld) 2.5 % Normal . [facility] Comment on above: Performed By: #### L IPID, ETOH, CBC, [id number], TSH3 wRFLX, CMP #### [facility] [address] [place] [address] [place] Automated eosinophil countOr dered By: Neil Nieves on 10-01-2023 Eosinophils (Bld) [#/Vol] 0.2 10*3/uL Normal 0.0-0.45 [facility] Comment on above: Performed By: #### L IPID, ETOH, CBC, [id number], TSH3 wRFLX, CMP #### [facility] [address] Automated monocyte %Ordered By: Neil Nieves on 10-01-2023 Monocytes/100 WBC (Bld) 8.9 % Normal . [facility] Comment on above: Performed By: #### L IPID, ETOH, CBC, [id number], TSH3 wRFLX, CMP #### [facility] [address] Automated neutrophil %Ordere d By: Neil Nieves on 10-01-2023 Neutrophils/100 WBC (Bld) 56.2 % Normal . [facility] Comment on above: Performed By: #### L IPID, ETOH, CBC, [id number], TSH3 wRFLX, CMP #### [facility] [address] [place] [address] [place] Barbiturates [Presence] in U rine by Screen methodOrdered By: Neil Nieves on 10-01-2023 Barbiturates Screen Ql (U) Negative Negative [facility] Benzodiazepines Screen Ql (U )Ordered By: Neil Nieves on 10-01-2023 Benzodiazepines Ql (U) Negative Negative [facility] Benzoylecgonine [Presence] i n Urine by Screen methodOrdered By: Neil Nieves on 10-01-2023 Benzoylecgonine Screen Ql (U) Negative Negative [facility] Bilirubin Test strip Ql (U)O rdered By: Neil Nieves on 10-01-2023 Bilirubin Ql (U) Negative Negative [facility] Bilirubin.total [Mass/volume ] in Serum or PlasmaOrdered By: Neil Nieves on 10-01-2023 Bilirubin [Mass/Vol] 0.5 mg/dL Normal 0.3-1.0 [facility] Comment on above: Performed By: #### L IPID, ETOH, CBC, [id number], TSH3 wRFLX, CMP #### [facility] [address] [place] [address] [place] Calcium [Mass/volume] in Ser um or PlasmaOrdered By: Neil Nieves on 10-01-2023 Calcium [Mass/Vol] 8.7 mg/dL Normal 8.6-10.3 [facility] Comment on above: Performed By: #### L IPID, ETOH, CBC, [id number], TSH3 wRFLX, CMP #### [facility] [address] Cannabinoids [Presence] in U rine by Screen methodOrdered By: Neil Nieves on 10-01-2023 Cannabinoids Screen Ql (U) Negative Negative [facility] Comment on above: These are unconfirme d results and should not be used for legal purposes. Drug Cut-Off Concentration: AMPH 1000 ng/mL MARYAM 200 ng/mL CLIVE 200 ng/mL COCM 300 ng/mL OP 300 ng/mL PCP 25 ng/mL THC 20 ng/mL Carbon dioxide, total [Moles /volume] in Serum or PlasmaOrdered By: Neil Nieves on 10-01-2023 CO2 [Moles/Vol] 25.2 mmol/L Normal 21.0-31.0 [facility] Comment on above: Performed By: #### L IPID, ETOH, CBC, [id number], TSH3 wRFLX, CMP #### [facility] [address] [id number] [place] Chloride [Moles/volume] in S rebeca or PlasmaOrdered By: Neil Nieves on 10-01-2023 Chloride [Moles/Vol] 101 mmol/L Normal 98-107 [facility] Comment on above: Performed By: #### L IPID, ETOH, CBC, [id number], TSH3 wRFLX, CMP #### [facility] [address] [place] [address] [place] Cholesterol [Mass/volume] in Serum or PlasmaOrdered By: Neil Nieves on 10-01-2023 Cholesterol [Mass/Vol] 125 mg/dL Low 140-200 [facility] Comment on above: Chol less than 200 m g/dl low riskChol 201-239 mg/dl borderline riskChol 240 mg/dl and greater high risk Result Comment: Chol less than 200 mg/dl low risk Chol 201-239 mg/dl borderline risk Chol 240 mg/dl and greater high risk Performed By: #### L IPID, ETOH, CBC, [id number], TSH3 wRFLX, CMP #### [facility] [address] [place] [address] [place] Cholesterol in LDL Calc [Mas s/Vol]Ordered By: Neil Nieves on 10-01-2023 Cholesterol in LDL [Mass/Vol] 29 mg/dL 0-100 [facility] Comment on above: LDL ATP III CLASSIFI CATIONLDL less than 100 mg/dL OptimalLDL 100-129 mg/dL Near or above optimalLDL 130-159 mg/dL Borderline highLDL 160-189 mg/dL HighLDL greater than 189 mg/dL Very high Cholesterol in VLDL Calc [Ma ss/Vol]Ordered By: Neil Nieves on 10-01-2023 Cholesterol in VLDL [Mass/Vol] 38 mg/dL [facility] Color of Urine by AutoOrdere d By: Neil Nieves on 10-01-2023 Color (U) Yellow Normal Yellow [facility] Comment on above: Order Comment: Name Collection Type:: Clean-Voided Midstream Performed By: #### U RDS, UA #### [facility] [address] [place] [address] [place] Complete Blood Count Auto Di ffon 10-01-2023 Mean Corpuscular HGB Conc 34.3 g/dL Normal 32.5-35.6 [facility] Comment on above: Performed By: #### L IPID, ETOH, CBC, [id number], TSH3 wRFLX, CMP #### [facility] [address] [place] [id number] [place] Monocytes/100 WBC (Bld) 15.93 % Normal 0.00-20.00 [facility] Comment on above: Performed By: #### L IPID, ETOH, CBC, [id number], TSH3 wRFLX, CMP #### [address] NRBC% 0.1 /100{WBC} Normal 0-0.5 [facility] Comment on above: Performed By: #### L IPID, ETOH, CBC, [id number], TSH3 wRFLX, CMP #### [address] Comprehensive Metabolic Pane gentry 10-01-2023 Albumin [Mass/Vol] 4.4 g/dL Normal 3.5-5.7 [facility] Comment on above: Performed By: #### L IPID, ETOH, CBC, [id number], TSH3 wRFLX, CMP #### [address] Creatinine Clr Calc Pharmacy 133.31 Normal [facility] Comment on above: Result Comment: PERF ORMED BY: [place] [address] PATHOLOGIST [employer] SUPPORT SPECIALIST MEE ALVAREZ M.D. Performed By: #### L IPID, ETOH, CBC, [id number], TSH3 wRFLX, CMP #### [address] GFR/1.73 sq M.predicted MDRD (S/P/Bld) [Vol rate/Area] mL/min/{1.73_m2} Normal [facility] Comment on above: Performed By: #### L IPID, ETOH, CBC, [id number], TSH3 wRFLX, CMP #### [address] Creatinine [Mass/volume] in Serum or PlasmaOrdered By: Neil Nieves on 10-01-2023 Creatinine [Mass/Vol] 0.68 mg/dL Low 0.70-1.30 [facility] Comment on above: Performed By: #### L IPID, ETOH, CBC, [id number], TSH3 wRFLX, CMP #### [address] Drug Screen,Urineon 10-01-19 Amphetamine Screen,Urine Negative Normal Negative [facility] Comment on above: Performed By: #### U RDS, UA #### [address] Barbiturate Screen,Urine Negative Normal Negative [facility] Comment on above: Performed By: #### U RDS, UA #### [address] Benzodiazepines Screen,Urine Negative Normal Negative [facility] Comment on above: Performed By: #### U RDS, UA #### [address] Cannabinoid Screen,Urine Negative Normal Negative [facility] Comment on above: Result Comment: Thes e are unconfirmed results and should not be used for legal purposes. Drug Cut-Off Concentration: AMPH 1000 ng/mL MARYAM 200 ng/mL CLIVE 200 ng/mL COCM 300 ng/mL OP 300 ng/mL PCP 25 ng/mL THC 20 ng/mL PERFORMED BY: [place] [address] PATHOLOGIST PR[employer] SUPPORT SPECIALIST MEE ALVAREZ M.D. Performed By: #### U RDS, UA #### [address] Cocaine Screen,Urine Negative Normal Negative [facility] Comment on above: Performed By: #### U RDS, UA #### [address] Opiate Screen,Urine Negative Normal Negative [facility] Comment on above: Performed By: #### U RDS, UA #### [address] Phencyclidine Screen,Urine Negative Normal Negative [facility] Comment on above: Performed By: #### U RDS, UA #### [address] Erythrocyte distribution wid th [Ratio] by Automated countOrdered By: Neil Nieves on 10-01-2023 Erythrocyte distribution width (RBC) [Ratio] 12.9 % Normal 12.0-14.8 [facility] Comment on above: Performed By: #### L IPID, ETOH, CBC, [id number], TSH3 wRFLX, CMP #### [facility] [address] [place] [address] [place] Erythrocytes [#/volume] in B lood by Automated countOrdered By: Neil Nieves on 10-01-2023 RBC (Bld) [#/Vol] 4.22 10*6/uL Normal 3.90-5.60 [facility] Comment on above: Performed By: #### L IPID, ETOH, CBC, [id number], TSH3 wRFLX, CMP #### [facility] [address] Ethanol [Mass/volume] in Ser um or PlasmaOrdered By: Neil Nieves on 10-01-2023 Ethanol [Mass/Vol] 275 mg/dL Normal [facility] Comment on above: Performed By: #### L IPID, ETOH, CBC, [id number], TSH3 wRFLX, CMP #### [address] Ethanol [Mass/Vol] 0.275 % [facility] Ethyl Alcohol Profileon 09-05 Percent Ethanol 0.275 % Normal [facility] Comment on above: Result Comment: PERF ORMED BY: [place] [address] PATHOLOGIST PR[employer] SUPPORT SPECIALIST MEE ALVAREZ M.D. Performed By: #### L IPID, ETOH, CBC, [id number], TSH3 wRFLX, CMP #### [address] Glucose [Mass/volume] in Ser um or PlasmaOrdered By: Neil Nieves on 10-01-2023 Glucose [Mass/Vol] 90 mg/dL Normal 70-100 [facility] Comment on above: ADA recommended refe rence rangeRandom Glucose Reference Range is dependent on time and content of last meal. Glucose of more than 200 mg/dL in a nonstressed, ambulatory subject supports the diagnosis of Diabetes Mellitus. Result Comment: [place] om Glucose Reference Range is dependent on time and content of last meal. Glucose of more than 200 mg/dL in a nonstressed, ambulatory subject supports the diagnosis of Diabetes Mellitus. ADA recommended reference range Performed By: #### L IPID, ETOH, CBC, [id number], TSH3 wRFLX, CMP #### [facility] [address] Hematocrit [Volume Fraction] of Blood by Automated countOrdered By: Neil Nieves on 10-01-2023 Hematocrit (Bld) [Volume fraction] 42.8 % Normal 38.8-50.0 [facility] Comment on above: Performed By: #### L IPID, ETOH, CBC, [id number], TSH3 wRFLX, CMP #### [facility] [address] Hemoglobin [Mass/volume] in BloodOrdered By: Neil Nieves on 10-01-2023 Hemoglobin (Bld) [Mass/Vol] 14.7 g/dL Normal 13.0-17.0 [facility] Comment on above: Performed By: #### L IPID, ETOH, CBC, [id number], TSH3 wRFLX, CMP #### [facility] [address] Ketones Auto test strip (U) [Mass/Vol]Ordered By: Neil Nieves on 10-01-2023 Ketones (U) [Mass/Vol] Negative Negative [facility] Leukocytes [#/volume] correc verna for nucleated erythrocytes in Blood by Automated counOrdered By: Neil Nieves on 10-01-2023 WBC corrected for nucl RBC Auto (Bld) [#/Vol] 7.9 10*3/uL 4.1-10.5 [facility] Leukocytes [#/volume] in Blo od by Automated countOrdered By: Neil Nieves on 10-01-2023 WBC (Bld) [#/Vol] 7.9 10*3/uL Normal 4.1-10.5 [facility] Comment on above: Performed By: #### L IPID, ETOH, CBC, [id number], TSH3 wRFLX, CMP #### [facility] [address] Lipid Panelon 10-01-2023 LDL Cholesterol,Calculate d 29 mg/dL Normal 0-100 [facility] Comment on above: Result Comment: LDL ATP III CLASSIFICATION LDL less than 100 mg/dL Optimal LDL 100-129 mg/dL Near or above optimal LDL 130-159 mg/dL Borderline high LDL 160-189 mg/dL High LDL greater than 189 mg/dL Very high Performed By: #### L IPID, ETOH, CBC, [id number], TSH3 wRFLX, CMP #### [address] Triglyceride w/Reflex 191 mg/dL High 0-149 [facility] Comment on above: Result Comment: TRIG ATP III CLASSIFICATION TRIG less than 150 mg/dL Normal TRIG 150-199 mg/dL Borderline high TRIG 200-500 mg/dL High TRIG greater than 500 mg/dL Very high Standard traceable to the Center for Disease Conrtrol and Prevention (CDC) test method. Performed By: #### L IPID, ETOH, CBC, [id number], TSH3 wRFLX, CMP #### [address] VLDL CHOLESTEROL 38 mg/dL Normal [facility] Comment on above: Performed By: #### L IPID, ETOH, CBC, [id number], TSH3 wRFLX, CMP #### [address] Lymphocytes [#/volume] in Bl ood by Automated countOrdered By: Neil Nieves on 10-01-2023 Lymphocytes (Bld) [#/Vol] 2.5 10*3/uL Normal 1.00-4.8 [facility] Comment on above: Performed By: #### L IPID, ETOH, CBC, [id number], TSH3 wRFLX, CMP #### [place] [address] [place] Lymphocytes/100 leukocytes i n Blood by Automated countOrdered By: Neil Nieves on 10-01-2023 Lymphocytes/100 WBC (Bld) 31.8 % Normal . [facility] Comment on above: Performed By: #### L IPID, ETOH, CBC, [id number], TSH3 wRFLX, CMP #### [facility] [address] MCH [Entitic mass] by Automa verna countOrdered By: Neil Nieves on 10-01-2023 MCH (RBC) [Entitic mass] 34.8 pg Normal 27.5-35.2 [facility] Comment on above: Performed By: #### L IPID, ETOH, CBC, [id number], TSH3 wRFLX, CMP #### [facility] [address] [place] [address] MCHC Auto (RBC) [Mass/Vol]Or dered By: Neil Nieves on 10-01-2023 MCHC (RBC) [Mass/Vol] 34.3 g/dL 32.5-35.6 [facility] MCV [Entitic volume] by Auto mated countOrdered By: Neil Nieves on 10-01-2023 MCV (RBC) [Entitic vol] 101.4 fL High 83.5-101 [facility] Comment on above: Performed By: #### L IPID, ETOH, CBC, [id number], TSH3 wRFLX, CMP #### [facility] [address] [place] [address] Monocyte distribution width [Entitic volume] in Blood by AutomatedOrdered By: Neil Nieves on 10-01-2023 Monocyte distribution width Auto (Bld) [Entitic vol] 15.93 % 0.00-20.00 [facility] Neutrophils [#/volume] in Bl ood by Automated countOrdered By: Neil Nieves on 10-01-2023 Neutrophils (Bld) [#/Vol] 4.5 10*3/uL Normal 1.8-7.7 [facility] Comment on above: Performed By: #### L IPID, ETOH, CBC, [id number], TSH3 wRFLX, CMP #### [facility] [address] [place] [address] Nitrite Test strip Ql (U)Ord ered By: Neil Nieves on 10-01-2023 Nitrite Ql (U) Negative Negative [facility] No Panel InformationOrdered By: Neil Nieves on 10-01-2023 Estimated GFR (CKD-EPI) > 60.0 mL/Min [facility] Creatinine Clearance (Chem 133.31 [facility] Nucleated erythrocytes [Pres ence] in Blood by Automated countOrdered By: Neil Nieves on 10-01-2023 Nucleated RBC Auto Ql (Bld) 0.1 /100{WBC} 0-0.5 [facility] Opiates [Presence] in Urine by Screen methodOrdered By: Neil Nieves on 10-01-2023 Opiates Screen Ql (U) Negative Negative [facility] Phencyclidine Screen Ql (U)O rdered By: Neil Nieves on 10-01-2023 Phencyclidine Ql (U) Negative Negative [facility] Platelet mean volume [Entiti c volume] in Blood by Automated countOrdered By: Neil Nieves on 10-01-2023 Platelet mean volume (Bld) [Entitic vol] 9.1 fL Normal 6.6-10.1 [facility] Comment on above: Performed By: #### L IPID, ETOH, CBC, [id number], TSH3 wRFLX, CMP #### [facility] [address] [place] [address] [place] Platelets [#/volume] in Bloo d by Automated countOrdered By: Neil Nieves on 10-01-2023 Platelets (Bld) [#/Vol] 172 10*3/uL Normal 150-450 [facility] Comment on above: Performed By: #### L IPID, ETOH, CBC, [id number], TSH3 wRFLX, CMP #### [facility] [address] [place] [address] [place] Potassium [Moles/volume] in Serum or PlasmaOrdered By: Neil Nieves on 10-01-2023 Potassium [Moles/Vol] 3.4 mmol/L Low 3.5-5.1 [facility] Comment on above: Performed By: #### L IPID, ETOH, CBC, [id number], TSH3 wRFLX, CMP #### [facility] [address] [place] [address] [place] Protein Auto test strip (U) [Mass/Vol]Ordered By: Neil Nieves on 10-01-2023 Protein (U) [Mass/Vol] Negative Negative [facility] Protein [Mass/volume] in Ser um or PlasmaOrdered By: Neil Nieves on 10-01-2023 Protein [Mass/Vol] 7.2 g/dL Normal 6.4-8.9 [facility] Comment on above: Performed By: #### L IPID, ETOH, CBC, [id number], TSH3 wRFLX, CMP #### [facility] [address] Serum globulin measurement b y calculation (mass/volume)Ordered By: Neil Nieves on 10-01-2023 Globulin (S) [Mass/Vol] 2.8 g/dL Normal [facility] Comment on above: Performed By: #### L IPID, ETOH, CBC, [id number], TSH3 wRFLX, CMP #### [facility] [address] [place] [address] Serum or plasma albumin/glob ulin mass ratioOrdered By: Neil Nieves on 10-01-2023 Albumin/Globulin [Mass ratio] 1.6 {ratio} [facility] Comment on above: Performed By: #### L IPID, ETOH, CBC, [id number], TSH3 wRFLX, CMP #### [facility] [address] [place] [address] Serum or plasma anion gap de terminationOrdered By: Neil Nieves on 10-01-2023 Anion gap [Moles/Vol] 12.2 mmol/L Normal 6.0-15.0 [facility] Comment on above: Performed By: #### L IPID, ETOH, CBC, [id number], TSH3 wRFLX, CMP #### [facility] [address] [place] [address] Serum or plasma high density lipoprotein (HDL) cholesterol measurementOrdered By: Neil Nieves on 10-01-2023 Cholesterol in HDL [Mass/Vol] 58 mg/dL Normal - [facility] Comment on above: HDL CHOL ATP-III CLA SSIFICATION Cardiovascular RiskHDL > or equal to 60 mg/dL LOWHDL < 40 mg/dL HIGH Result Comment: HDL CHOL ATP-III CLASSIFICATION Cardiovascular Risk HDL > or equal to 60 mg/dL LOW HDL < 40 mg/dL HIGH Performed By: #### L IPID, ETOH, CBC, [id number], TSH3 wRFLX, CMP #### [facility] [address] Serum or plasma total choles terol/high density lipoprotein (HDL) cholesterol mass ratOrdered By: Neil Nieves on 10-01-2023 Cholesterol.total/Cho lesterol in HDL [Mass ratio] 2.2 {ratio} Normal <5.0 [facility] Comment on above: Performed By: #### L IPID, ETOH, CBC, [id number], TSH3 wRFLX, CMP #### [facility] [address] Sodium [Moles/volume] in Ser um or PlasmaOrdered By: Neil Nieves on 10-01-2023 Sodium [Moles/Vol] 135 mmol/L Low 136-145 [facility] Comment on above: Performed By: #### L IPID, ETOH, CBC, [id number], TSH3 wRFLX, CMP #### [facility] [address] Specific gravity Auto test s trip (U) [Rel density]Ordered By: Neil Nieves on 10-01-2023 Specific gravity (U) [Rel density] 1.003 1.001-1.03 0 [facility] Thyroid Stim Hormone w/Rflxo n 10-01-2023 Thyroid Stim Hormone w/Rflx 1.12 u[iU]/mL Normal 0.45-5.33 [facility] Comment on above: Performed By: #### L IPID, ETOH, CBC, [id number], TSH3 wRFLX, CMP #### [facility] [address] Thyrotropin [Units/volume] i n Serum or PlasmaOrdered By: Neil Nieves on 10-01-2023 TSH Qn 1.12 m[IU]/L 0.45-5.33 [facility] Triglyceride [Mass/volume] i n Serum or PlasmaOrdered By: Neil Nieves on 10-01-2023 Triglyceride [Mass/Vol] 191 mg/dL 0-149 [facility] Comment on above: TRIG ATP III CLASSIF ICATIONTRIG less than 150 mg/dL NormalTRIG 150-199 mg/dL Borderline highTRIG 200-500 mg/dL High TRIG greater than 500 mg/dL Very highStandard traceable to the Center for Disease Conrtrol and Prevention (CDC) test method. Urea nitrogen [Mass/volume] in Serum or PlasmaOrdered By: Neil Nieves on 10-01-2023 Urea nitrogen [Mass/Vol] 6 mg/dL Low 7-25 [facility] Comment on above: Performed By: #### L IPID, ETOH, CBC, [id number], TSH3 wRFLX, CMP #### [facility] [address] [place] [address] [place] Urinalysison 10-01-2023 Appearance (U) Clear Normal Clear [facility] Comment on above: Order Comment: Name Collection Type:: Clean-Voided Midstream Performed By: #### U RDS, UA #### [facility] [address] [place] [address] [place] Bilirubin,Urine Negative Normal Negative [facility] Comment on above: Order Comment: Name Collection Type:: Clean-Voided Midstream Performed By: #### U RDS, UA #### [facility] [address] [place] [id number] [place] Glucose Ql (U) Normal Normal Normal [facility] Comment on above: Order Comment: Name Collection Type:: Clean-Voided Midstream Performed By: #### U RDS, UA #### [facility] [address] [place] [address] [place] Ketones Ql (U) Negative Normal Negative [facility] Comment on above: Order Comment: Name Collection Type:: Clean-Voided Midstream Performed By: #### U RDS, UA #### [facility] [address] [place] [id number] [place] Leukocyte esterase Test strip Ql (U) Negative Normal Negative [facility] Comment on above: Order Comment: Name Collection Type:: Clean-Voided Midstream Performed By: #### U RDS, UA #### [facility] [address] [place] [id number] [place] Nitrite,Urine Negative Normal Negative [facility] Comment on above: Order Comment: Name Collection Type:: Clean-Voided Midstream Performed By: #### U RDS, UA #### [facility] [address] [place] [address] Occult Blood,Urine Negative Normal Negative [facility] Comment on above: Order Comment: Name Collection Type:: Clean-Voided Midstream Result Comment: PERF ORMED BY: [place] [address] PATHOLOGIST PR[employer] SUPPORT SPECIALIST MEE ALVAREZ M.D. Performed By: #### U RDS, UA #### [facility] [address] [place] [address] [place] Protein,Urine Negative Normal Negative [facility] Comment on above: Order Comment: Name Collection Type:: Clean-Voided Midstream Performed By: #### U RDS, UA #### [facility] [address] [place] [address] Specificy [place],Urine 1.003 Normal 1.001-1.03 0 [facility] Comment on above: Order Comment: Name Collection Type:: Clean-Voided Midstream Performed By: #### U RDS, UA #### [address] Urobilinogen,Urine Normal Normal Normal [facility] Comment on above: Order Comment: Name Collection Type:: Clean-Voided Midstream Performed By: #### U RDS, UA #### [facility] [address] [place] [address] Urine clarity by refractomet ry automatedOrdered By: Neil Nieves on 10-01-2023 Clarity Refractometry automated (U) Clear Clear [facility] Urine glucose measurement by automated test strip (mass/volume)Ordered By: Neil Nieves on 10-01-2023 Glucose Auto test strip (U) [Mass/Vol] Normal mg/dL Normal [facility] Urine hemoglobin detection b y automated test stripOrdered By: Neil Nieves on 10-01-2023 Hemoglobin Auto test strip Ql (U) Negative Negative [facility] Urine leukocyte esterase det ection by automated test stripOrdered By: Neil Nieves on 10-01-2023 Leukocyte esterase Auto test strip Ql (U) Negative Negative [facility] Urine pH measurement by auto mated test stripOrdered By: Neil Nieves on 10-01-2023 pH (U) 7.0 [pH] Normal 5.0-9.0 [facility] Comment on above: Order Comment: Name Collection Type:: Clean-Voided Midstream Performed By: #### U RDS, UA #### [facility] [address] Urobilinogen Auto test strip (U) [Mass/Vol]Ordered By: Neil Nieves on 10-01-2023 Urobilinogen (U) [Mass/Vol] Normal mg/dL Normal [facility] Vitamin D 25 Hydroxy Totalon 10-01-2023 Vitamin D 25 Hydroxy Total 23.5 ng/mL Low 30-100 [facility] Comment on above: Result Comment: NERISSA MIN D STATUS 25([place])VITAMIN D RANGE (ng/mL) Deficient <20 Insufficient 20 to <30 Sufficient 30 to 100 Reference: Rex Scott, Armando CAMEJO, et al. Evaluation,treatment, and prevention of vitamin D deficiency; an Endocrine Society clinical practice guideline. JCEM. 2010; 96(7):1911-30. PERFORMED BY: [place] [address] PATHOLOGIST PR[employer] SUPPORT SPECIALIST MEE ALVAREZ M.D. Performed By: #### L IPID, ETOH, CBC, [id number], TSH3 wRFLX, CMP #### [facility] [address] [place] [address] Vitamin D+Metabolites [Mass/ volume] in Serum or PlasmaOrdered By: Neil Nieves on 10-01-2023 Vitamin D+Metabolites [Mass/Vol] 23.5 ng/mL 30-100 [facility] Comment on above: VITAMIN D STATUS 25( [place])VITAMIN D RANGE (ng/mL) Deficient <20 Insufficient 20 to <30Sufficient 30 to 100Reference: Rex Scott, Armando CAMEJO, et al. Evaluation,treatment, and prevention of vitamin D deficiency; an Endocrine Society clinical practice guideline. JCEM. 2010; 96(7):1911-30. Lab - Other Lab [facility] - Other Lab Results [id number] Normal [facility] ACETAMINOPHENon 06-13-2023 Acetaminophen [Mass/Vol] 2.5 ug/mL Low 10.0-30.0 [facility] Comment on above: Result Comment: Refe rence ranges are for therapeutic limits. Performed By: #### C BCA, PINR, 10007-1, 5643-2, 3298-7, 4024-6, CMP, 10654-0, 81457-8 #### [facility] ([id number]) [address] [place] [id number] CBC AND AUTO DIFFon 06-13-19 24 ABSOLUTE BASOPHIL 0.1 X10E9/L Normal 0.0-0.2 [facility] Comment on above: Performed By: #### C BCA, PINR, 26872-4, 5643-2, 3298-7, 4024- 6, CMP, 88757-7, 37652-1 #### [facility] ([id number]) [address] [place] [address] 30170 ABSOLUTE NEUTROPHIL 2.4 X10E9/L Normal 1.5-6.6 [facility] Comment on above: Performed By: #### C BCA, PINR, 45143-1, 5643-2, 3298-7, 4024- 6, CMP, 13647-7, 41504-8 #### [facility] ([id number]) [address] [place] [address] 13114 Basophils/100 WBC (Bld) 1.2 % Normal [facility] Comment on above: Performed By: #### C BCA, PINR, 29279-3, 5643-2, 3298-7, 4024- 6, CMP, 62666-8, 68619-9 #### [facility] ([id number]) [address] [place] [address] 05253 Eosinophils (Bld) [#/Vol] 0.1 10*3/uL Normal 0.0-0.4 [facility] Comment on above: Performed By: #### C BCA, PINR, 62486-2, 5643-2, 3298-7, 4024- 6, CMP, 25512-6, 44109-2 #### [facility] ([id number]) [address] [place] [address] 48322 Eosinophils/100 WBC (Bld) 1.9 % Normal [facility] Comment on above: Performed By: #### C BCA, PINR, 34177-7, 5643-2, 3298-7, 4024- 6, CMP, 37885-8, 61161-0 #### [facility] ([id number]) [address] [place] [address] 10557 Erythrocyte distribution width (RBC) [Ratio] 13.3 % Normal 11.5-15.0 [facility] Comment on above: Performed By: #### C BCA, PINR, 10442-7, 5643-2, 3298-7, 4024- 6, CMP, 20494-3, 92351-4 #### [facility] ([id number]) [address] [place] [address] 53149 Hematocrit (Bld) [Volume fraction] 40.9 % Normal 39-49 [facility] Comment on above: Performed By: #### C BCA, PINR, 78058-2, 5643-2, 3298-7, 4024- 6, CMP, 10577-4, 12192-4 #### [facility] ([id number]) [address] [place] [address] 75969 Hemoglobin (Bld) [Mass/Vol] 14.2 g/dL Normal 13.0-17.0 [facility] Comment on above: Performed By: #### C BCA, PINR, 98028-7, 5643-2, 3298-7, 4024- 6, CMP, 10548-0, 17106-0 #### [facility] ([id number]) [address] [place] [address] 04808 Lymphocytes (Bld) [#/Vol] 2.2 10*3/uL Normal 1.0-3.5 [facility] Comment on above: Performed By: #### C BCA, PINR, 04209-4, 5643-2, 3298-7, 4024- 6, CMP, 02152-0, 80060-9 #### [facility] ([id number]) [address] [place] [address] 57439 Lymphocytes/100 WBC (Bld) 41.8 % Normal [facility] Comment on above: Performed By: #### C BCA, PINR, 38910-4, 5643-2, 3298-7, 4024- 6, CMP, 98296-1, 46815-8 #### [facility] ([id number]) [address] [place] [address] 68560 MCH (RBC) [Entitic mass] 34.8 pg High 27-34 [facility] Comment on above: Performed By: #### C BCA, PINR, 59938-1, 5643-2, 3298-7, 4024- 6, CMP, 34290-0, 02892-3 #### [facility] ([id number]) [address] [place] [address] 41505 MCHC (RBC) [Mass/Vol] 34.7 g/dL Normal 32-36 [facility] Comment on above: Performed By: #### C BCA, PINR, 73149-8, 5643-2, 3298-7, 4024- 6, CMP, 05613-6, 84844-0 #### [facility] ([id number]) [address] [place] [address] 18268 MCV (RBC) [Entitic vol] 100 fL Normal 80-100 [facility] Comment on above: Performed By: #### C BCA, PINR, 41662-3, 5643-2, 3298-7, 4024- 6, CMP, 96694-7, 53300-8 #### [facility] ([id number]) [address] [place] [address] 82379 Monocytes (Bld) [#/Vol] 0.6 10*3/uL Normal 0-0.9 [facility] Comment on above: Performed By: #### C BCA, PINR, 06485-0, 5643-2, 3298-7, 4024- 6, CMP, 23253-0, 42690-1 #### [facility] ([id number]) [address] [place] [address] 75567 Monocytes/100 WBC (Bld) 10.4 % Normal [facility] Comment on above: Performed By: #### C BCA, PINR, 06392-1, 5643-2, 3298-7, 4024- 6, CMP, 76866-5, 71304-0 #### [facility] ([id number]) [address] [place] [address] 83986 Neutrophils/100 WBC (Bld) 44.7 % Normal [facility] Comment on above: Performed By: #### C BCA, PINR, 35697-7, 5643-2, 3298-7, 4024- 6, CMP, 96522-4, 37403-3 #### [facility] ([id number]) [address] [place] [address] [place] [address] Platelet mean volume (Bld) [Entitic vol] 9.6 fL Normal 7-12 [facility] Comment on above: Performed By: #### C BCA, PINR, 00538-0, 5643-2, 3298-7, 4024- 6, CMP, 13289-9, 89624-6 #### [facility] ([id number]) [address] [place] [address] 85658 Platelets (Bld) [#/Vol] 132 10*3/uL Low 150-450 [facility] Comment on above: Performed By: #### C BCA, PINR, 76093-6, 5643-2, 3298-7, 4024- 6, CMP, 50153-0, 78861-5 #### [facility] ([id number]) [address] [place] [address] 25481 RBC COUNT 4.07 X10E12/L Low 4.10-5.70 [facility] Comment on above: Performed By: #### C BCA, PINR, 27791-3, 5643-2, 3298-7, 4024- 6, CMP, 65980-6, 84431-9 #### [facility] ([id number]) [address] [place] [address] 03279 WBC (Bld) [#/Vol] 5.3 10*3/uL Normal 4.0-11.0 [facility] Comment on above: Performed By: #### C BCA, PINR, 33278-0, 5643-2, 3298-7, 4024- 6, CMP, 79681-2, 42359-7 #### [facility] ([id number]) [address] [place] [address] 38725 COMPREHENSIVE METABOLIC PANE [place] 06-13-2023 Albumin [Mass/Vol] 4.4 g/dL Normal 3.2-5.3 [facility] Comment on above: Performed By: #### C BCA, PINR, 28932-8, 5643-2, 3298-7, 4024- 6, CMP, 32725-0, 71121-7 #### [facility] ([id number]) [address] [place] [address] 06496 ALP [Catalytic activity/Vol] 80 U/L Normal 39-130 [facility] Comment on above: Performed By: #### C BCA, PINR, 80392-6, 5643-2, 3298-7, 4024- 6, CMP, 79447-1, 20641-4 #### [facility] ([id number]) [address] [place] [address] 75367 ALT [Catalytic activity/Vol] 20 U/L Normal 0-40 [facility] Comment on above: Performed By: #### C BCA, PINR, 23252-7, 5643-2, 3298-7, 4024- 6, CMP, 64872-9, 66547-3 #### [facility] ([id number]) [address] [place] [address] 34366 Anion gap [Moles/Vol] 10 mmol/L Normal 5-15 [facility] Comment on above: Performed By: #### C BCA, PINR, 59014-1, 5643-2, 3298-7, 4024- 6, CMP, 90133-5, 21066-7 #### [facility] ([id number]) [address] [place] [address] 93877 AST [Catalytic activity/Vol] 39 U/L Normal 0-41 [facility] Comment on above: Performed By: #### C BCA, PINR, 69639-5, 5643-2, 3298-7, 4024- 6, CMP, 35906-1, 95320-9 #### [facility] ([id number]) [address] [place] [address] 75741 Bilirubin [Mass/Vol] 0.8 mg/dL Normal 0.3-1.2 [facility] Comment on above: Performed By: #### C BCA, PINR, 80574-5, 5643-2, 3298-7, 4024- 6, CMP, 34372-4, 82156-3 #### [facility] ([id number]) [address] [place] [address] 66264 Calcium [Mass/Vol] 8.4 mg/dL Low 8.5-10.5 [facility] Comment on above: Performed By: #### C BCA, PINR, 31859-8, 5643-2, 3298-7, 4024- 6, CMP, 59533-2, 24584-8 #### [facility] ([id number]) [address] [place] [address] 54373 Chloride [Moles/Vol] 106 mmol/L Normal 98-109 [facility] Comment on above: Performed By: #### C BCA, PINR, 85253-8, 5643-2, 3298-7, 4024- 6, CMP, 25735-2, 01605-0 #### [facility] ([id number]) [address] [place] [address] 41126 CO2 [Moles/Vol] 23 mmol/L Normal 22-32 [facility] Comment on above: Performed By: #### C BCA, PINR, 45751-7, 5643-2, 3298-7, 4024- 6, CMP, 78615-4, 64182-8 #### [facility] ([id number]) [address] [place] [address] 79553 Creatinine [Mass/Vol] 0.62 mg/dL Low 0.70-1.20 [facility] Comment on above: Result Comment: METH OD TRACEABLE TO IDMS STANDARD Performed By: #### C BCA, PINR, 84172-3, 5643-2, 3298-7, 4024-6, CMP, 93736-5, 79872-5 #### [facility] ([id number]) [address] [place] [address] 88914 eGFR (CKD-EPI) NON-RACE DEPENDENT >90 Normal >59 [facility] Comment on above: Result Comment: Reported eGFR is based on the CKD-EPI 2020 equation that does not use a race coefficient. Performed By: #### C BCA, PINR, 69492-0, 5643-2, 3298-7, 4024-6, CMP, 99064-2, 89481-1 #### [facility] ([id number]) [address] [place] [address] 72099 Glucose [Mass/Vol] 93 mg/dL Normal 65-99 [facility] Comment on above: Performed By: #### C BCA, PINR, 88183-3, 5643-2, 3298-7, 4024- 6, CMP, 51925-6, 23045-5 #### [facility] ([id number]) [address] [place] [address] 12366 Potassium [Moles/Vol] 3.6 mmol/L Normal 3.5-5.0 [facility] Comment on above: Performed By: #### C BCA, PINR, 55444-0, 5643-2, 3298-7, 4024- 6, CMP, 13501-4, 70583-7 #### [facility] ([id number]) [address] [place] [address] 19614 Protein [Mass/Vol] 7.8 g/dL Normal 6.0-8.0 [facility] Comment on above: Performed By: #### C BCA, PINR, 95350-0, 5643-2, 3298-7, 4024- 6, CMP, 53930-7, 76953-6 #### [facility] ([id number]) [address] [place] [address] 32204 Sodium [Moles/Vol] 139 mmol/L Normal 134-146 [facility] Comment on above: Performed By: #### C BCA, PINR, 46510-4, 5643-2, 3298-7, 4024- 6, CMP, 93031-4, 14489-6 #### [facility] ([id number]) [address] [place] [address] 98313 Urea nitrogen [Mass/Vol] 6 mg/dL Normal 5-23 [facility] Comment on above: Performed By: #### C BCA, PINR, 05093-2, 5643-2, 3298-7, 4024- 6, [facility], 82144-1, 38266-5 #### [facility] ([id number]) [address] [place] [address] BRAIN WO CONTon 4 CT BRAIN WO CONT CT BRAIN WO CONT CT BRAIN WITHOUT CONTRAST COMPARISON: 10/24/2019 HISTORY: Transient alteration of awareness. TECHNIQUE: Unenhanced axial images of the brain were obtained. Automatic exposure control (AEC) was utilized. FINDINGS: There is no evidence for acute intracranial hemorrhage. There is no hydrocephalus, mass effect, or midline shift. Henning-white differentiation is preserved with no CT evidence for an acute infarct. IMPRESSION: No evidence for an acute intracranial process. All CT scans at this facility use dose modulation, iterative reconstruction, and/or weight based dosing when appropriate to reduce radiation dose to as low as reasonably achievable. Finalized by Mary Ruano DO on 06/13/2023 6:21 PM Normal [facility] DRUG SCREEN, URINEon 024 AMPHETAMINE/METHAMP Negative Normal NEG [facility] Comment on above: Result Comment: AMPH /METH screening cut off = 1000 ng/mL Performed By: #### D SALDIVAR ####[facility] ([id number])[address] [place] [address] 01561 BARBITURATES Negative Normal NEG [facility] Comment on above: Result Comment: Maryam iturates screening cut off value = 200 ng/mL Performed By: #### D SALDIVAR ####[facility] ([id number])[address] [place] [address] 01296 BENZODIAZEPINES Positive Abnormal NEG [facility] Comment on above: Result Comment: Conf irmation available upon request. Benzodiazepines screening cut off value = 200 ng/mL Performed By: #### D SALDIVAR ####[facility] ([id number])[address] [place] [address] 01748 CANNABINOIDS Negative Normal NEG [facility] Comment on above: Result Comment: Mere abinoids/THC screening cut off value = 50 ng/mL Performed By: #### D SALDIVAR ####[facility] ([id number])[address] [place] [address] 31406 COCAINE METABOLITE Negative Normal NEG [facility] Comment on above: Result Comment: Coca ine screening cut off value = 300 ng/mL Performed By: #### D SALDIVAR ####[facility] ([id number])[address] [place] [address] 45509 ECSTASY Negative Normal NEG [facility] Comment on above: Result Comment: Ecst asy screening cut off value = 500 ng/mL This report is intended for use in clinical monitoring or management of patients. Performed By: #### D SALDIVAR ####[facility] ([id number])[address] [place] [address] 65948 METHADONE Negative Normal [facility] Comment on above: Result Comment: Meth adone screening cut off value = 300 ng/mL. Performed By: #### D SALDIVAR ####[facility] ([id number])[address] [place] [address] 36406 OPIATES Negative Normal [facility] Comment on above: Result Comment: Opia lizbeth screening cut off value = 300 ng/mL NOTE: This test is used for the detection of codeine, hydrocodone (>1000 ng/mL), morphine and hydromorphone (>900 ng/mL) in urine. Performed By: #### D SALDIVAR ####[facility] ([id number])[address] [place] [address] [place] [address] OXYCODONE Negative Normal NEG [facility] Comment on above: Result Comment: Oxyc odone screening cut off value = 300 ng/mL NOTE: This test is used for the detection of oxycodone and oxymorphone in urine. Performed By: #### D SALDIVAR ####[facility] ([id number])[address] [place] [address] 91552 PHENCYCLIDINE Negative Normal NEG [facility] Comment on above: Result Comment: Phen cyclidine screening cut off value = 25 ng/mL Performed By: #### D SALDIVAR ####[facility] ([id number])[address] [place] [address] 64751 Ethanol [Mass/Vol]on 024 ETHANOL 0.33 g/dL High 0.00-0.08 [facility] Comment on above: Result Comment: This report is intended for use in clinical monitoring or management of patients. Performed By: #### C BCA, PINR, 46774-3, 5643-2, 3298-7, 4024-6, CMP, 76471-3, 07474-0 #### [facility] ([id number]) [address] [place] [address] 99258 MAGNESIUMon 06-13-2023 Magnesium [Mass/Vol] 2.4 mg/dL Normal 1.8-2.6 [facility] Comment on above: Performed By: #### C BCA, PINR, 19512-7, 5643-2, 3298-7, 4024- 6, CMP, 87121-1, 13753-9 #### [facility] ([id number]) [address] [place] [address] 23157 PROTIME AND INRon 06-13-2023 INR Coag (PPP) [Relative time] 1.0 {INR} Normal 0.8-1.1 [facility] Comment on above: Performed By: #### C BCA, PINR, 65138-4, 5643-2, 3298-7, 4024- 6, CMP, 07011-0, 96356-6 #### [facility] ([id number]) [address] [place] [address] 74350 PT Coag (PPP) [Time] 12.0 s Normal 9.8-13.2 [facility] Comment on above: Result Comment: NEW REFERENCE RANGE Performed By: #### C BCA, PINR, 95201-2, 5643-2, 3298-7, 4024-6, CMP, 38892-8, 02805-6 #### [facility] ([id number]) [address] [place] [address] 58661 Salicylates [Mass/Vol]on SALICYLATE <4.0 Normal 2.0-25.0 [facility] Comment on above: Result Comment: Refe rence ranges are for therapeutic limits. Performed By: #### C BCA, PINR, 46051-6, 5643-2, 3298-7, 4024-6, CMP, 80138-6, 25246-0 #### [facility] ([id number]) [address] [place] [address] 52207 TROPONIN Ion 06-13-2023 Troponin I.cardiac [Mass/Vol] ng/mL Normal 0.00-0.04 [facility] Comment on above: Performed By: #### C BCA, PINR, 66090-1, 5643-2, 3298-7, 4024- 6, CMP, 92475-1, 86642-8 ####[facility] ([id number])[address] [place] [address] [place] [address] URN MACROSCOPIC NURon 2023 BILIRUBIN TRACEY Negative Normal NEG [facility] Comment on above: Performed By: #### N UM #### [facility] ([id number]) [address] [place] [address] [place] [address] BLOOD/HGB TRACEY Negative Normal NEG [facility] Comment on above: Performed By: #### N UM #### [facility] ([id number]) [address] [place] [address] [place] [address] GLUCOSE TRACEY Negative Normal NEG [facility] Comment on above: Performed By: #### N UM #### [facility] ([id number]) [address] [place] [address] [place] [address] KETONES TRACEY Negative Normal NEG [facility] Comment on above: Performed By: #### N UM #### [facility] ([id number]) [address] [place] [address] 77695 LEUKOCYTE ESTERASE TRACEY Negative Normal NEG [facility] Comment on above: Performed By: #### N UM #### [facility] ([id number]) [address] [place] [address] 68524 NITRITE TRACEY Negative Normal NEG [facility] Comment on above: Performed By: #### N UM #### [facility] ([id number]) [address] [place] [address] 00912 PH TRACEY 6.0 Normal 5.0-8.5 [facility] Comment on above: Performed By: #### N UM #### [facility] ([id number]) [address] [place] [address] 89165 PROTEIN TRACEY Negative Normal NEG [facility] Comment on above: Performed By: #### N UM #### [facility] ([id number]) [address] [place] [address] 02974 SPECIFIC GRAVITY TRACEY <=1.005 Normal 1.003-[address] [place] [address] Comment on above: Performed By: #### N UM #### [facility] ([id number]) [address] [place] [address] 65374 UROBILINOGEN TRACEY 0.2 eu/dL Normal <1.1 [facility] Comment on above: Performed By: #### N UM #### [facility] ([id number]) [address] [place] [address] 96910 aPTT Coag (PPP) [Time]on aPTT Coag (Bld) [Time] 35 s Normal 26-37 [facility] Comment on above: Result Comment: NEW REFERENCE RANGE Performed By: #### C BCA, PINR, 87083-3, 5643-2, 3298-7, 4024-6, CMP, 97319-3, 79915-4 #### [facility] ([id number]) [address] [place] [address], [place] [address] Outside Recordson 05-25-2023 Outside Records [id number]#[facility] Report on 05-25-2023 Rad - Other Radiology Report [id number]#[facility] Report [id number]#1.[facility] - Other Lab Resultson Lab - Other Lab Results [id number]#1.[facility] ACETAMINOPHENon 04-17-2022 Acetaminophen [Mass/Vol] ug/mL Critically low 10.0-30.0 [facility] Comment on above: Performed By: #### H STROPN, SALYC, ETH, TSH, ACET, CMP ####[facility] [address] [address]Dr. Sammy Omer AMMONIAon 04-17-2022 Ammonia (P) [Moles/Vol] 47 umol/L Critically high 11-32 [facility] Comment on above: Performed By: #### P HVEN #### [facility] [address] [address] [address] Sammy Omer CBC AUTO DIFFon 04-17-2022 BASO # 0.0 103/ul Normal 0.0-0.1 [facility] Comment on above: Performed By: #### P HVEN #### [facility] [address] [address] [address] Sammy Omer Basophils/100 WBC (Bld) 1.0 % Normal 0.2-2.0 [facility] Comment on above: Performed By: #### P HVEN #### [facility] [address] [address] [address] Sammy Omer EO # 0.1 103/ul Normal 0.0-0.7 [facility] Comment on above: Performed By: #### P HVEN #### [facility] [address] [place] [address] Dr. Sammy Omer Eosinophils/100 WBC (Bld) 1.2 % Normal 0.9-7.0 [facility] Comment on above: Performed By: #### P HVEN #### [facility] [address] [place] [address] Dr. Sammy Omer Erythrocyte distribution width (RBC) [Ratio] 12.4 % Normal 11.0-15.0 [facility] Comment on above: Performed By: #### P HVEN #### [facility] [address] [place] [address] Dr. Sammy Omer Hematocrit (Bld) [Volume fraction] 37.3 % Critically low 42.0-54.0 [facility] Comment on above: Performed By: #### P HVEN #### [facility] [address] [place] [address] Dr. Sammy Omer Hemoglobin (Bld) [Mass/Vol] 13.2 g/dL Critically low 14.0-18.0 [facility] Comment on above: Performed By: #### P HVEN #### [facility] [address] [place] [address] Dr. Sammy Omer IG # 0.01 10e3/ul Normal 0.00-0.03 [facility] Comment on above: Performed By: #### P HVEN #### [facility] [address] [place] [address] Dr. Sammy Omer IG % 0.2 % Normal 0.0-0.5 [facility] Comment on above: Performed By: #### P HVEN #### [facility] [address] [place] [address] Dr. Sammy Omer LYMPH # 2.6 103/ul Normal 1.2-3.8 [facility] Comment on above: Performed By: #### P HVEN #### [facility] [address] [address] [address] Sammy Omer Lymphocytes/100 WBC (Bld) 63.2 % Critically high 20.5-60.0 [facility] Comment on above: Performed By: #### P HVEN #### [facility] [address] [place] [address] Dr. Sammy Omer MANUAL DIFF REQ NO Normal [facility] Comment on above: Performed By: #### P HVEN #### [facility] [address] [place] [address] Dr. Sammy Omer MCH (RBC) [Entitic mass] 34.3 pg Critically high 25.9-34.0 [facility] Comment on above: Performed By: #### P HVEN #### [facility] [address] [place] [address] Dr. Sammy Omer MCHC (RBC) [Mass/Vol] 35.4 g/dL Critically high 29.9-35.2 [facility] Comment on above: Performed By: #### P HVEN #### [facility] [address] [place] [address] Dr. Sammy Omer MCV (RBC) [Entitic vol] 96.9 fL Critically high 80.0-94.0 [facility] Comment on above: Performed By: #### P HVEN #### [facility] [address] [place] [address] Dr. Sammy Omer MONO # 0.3 103/ul Normal 0.3-0.8 [facility] Comment on above: Performed By: #### P HVEN #### [facility] [address] [place] [address] Dr. Sammy Omer Monocytes/100 WBC (Bld) 7.7 % Normal 1.7-12.0 [facility] Comment on above: Performed By: #### P HVEN #### [facility] [address] [place] [address] Dr. Sammy Omer NEUT # 1.1 103/ul Critically low 1.4-6.5 [facility] Comment on above: Performed By: #### P HVEN #### [facility] [address] [address] [address] Sammy Omer Neutrophils/100 WBC (Bld) 26.7 % Critically low 43.0-75.0 [facility] Comment on above: Performed By: #### P HVEN #### [facility] [address] [address] [address] Sammy Omer Platelet mean volume (Bld) [Entitic vol] 11.0 fL Normal 9.5-13.5 [facility] Comment on above: Performed By: #### P HVEN #### [facility] [address] [address] [address] Sammy Omer PLT 138 103/ul Critically low 150-450 [facility] Comment on above: Performed By: #### P HVEN #### [facility] [address] [place] [address] Dr. Sammy Omer RBC 3.85 106/ul Critically low 4.70-6.10 [facility] Comment on above: Performed By: #### P HVEN #### [facility] [address] [address] [address] Sammy Omer WBC 4.2 103/ul Normal 4.0-11.0 [facility] Comment on above: Performed By: #### P HVEN #### [facility] [address] [place] [address] CSPINE WO CONon 2 CT CSPINE WO CON EXAMINATION: CT CSPI NE WO CON HISTORY: Seizure COMPARISON: Cervical spine CT 09/23/2021 TECHNIQUE: CT Cervical spine without IV contrast. Coronal and sagittal reformations were performed. Dose reduction techniques were achieved by using automated exposure control and/or adjustment of mA and/or kV according to patient size and/or use of iterative reconstruction technique. FINDINGS: IMPRESSION: Persistent straightening of the normal cervical lordosis. Vertebral body heights and alignments exhibit no fracture or listhesis. 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 The dens and lateral masses of C1 are symmetric. Right-sided vertebral artery stent. No prevertebral soft tissue edema. The superficial subcutaneous soft tissues are unremarkable. The visualized airway is patent. Pulmonary apices exhibit emphysema changes with no acute abnormality. Electronically authenticated by: WANDA PATRICIO Date: 2022-04-17 18:24 Normal The [facility] CT HEAD WO CONon 04-17-2022 CT HEAD WO CON Study: CT HEAD WO CO N HISTORY: Seizure Technique: CT images of the head were acquired without intravenous contrast. Dose reduction technique used: Automatic exposure control and/or adjustment of the mA and/or kV according to patient size and/or use of degenerative reconstruction technique. Comparisons: CT head 12/10/2018 Findings: BRAIN PARENCHYMA: No acute hemorrhage. No mass effect or herniation. Henning-white differentiation is maintained. White matter is within normal limits for age. The sellar contents appear normal. VENTRICLE/EXTRA-AXIAL SPACES: No hydrocephalus or extra-axial fluid collections. EXTRACRANIAL STRUCTURES: No destructive osseous lesion. Normal soft tissues. Mastoids are clear. ORBITS: Normal. PARANASAL SINUSES: Normal. IMPRESSION: No acute intracranial abnormality. Electronically authenticated by: JAISON SUAREZ Date: 2022-04-17 17:37 Normal The [facility] ETHANOL (BLD ALC)on 04-17-20 22 ALC NOTE NOTE: 80 mg/dl is th e legal limit for a blood alcohol level Normal [facility] Comment on above: Performed By: #### H STROPN, SALYC, ETH, TSH, ACET, CMP ####[facility] [address] [place] [address]Dr. Sammy Omer Ethanol [Mass/Vol] 261 mg/dL Normal [facility] Comment on above: Performed By: #### H STROPN, SALYC, ETH, TSH, ACET, CMP ####[facility] [address] [place], [place] [address]NcDr. Sammy Omer LACTATE/LACTIC ACIDon 2021 Lactate [Moles/Vol] 1.4 mmol/L Normal 0.4-1.9 [facility] Comment on above: Performed By: #### L ACT #### [facility] [address] [address] [address] Sammy Omer Lactate [Moles/Vol] 3.0 mmol/L Critically high 0.4-1.9 [facility] Comment on above: Performed By: #### H STROPN #### [facility] [address] [address] [address] Sammy Omer OXCARBAZEPINE / TRILEPTALon 04-17-2022 Oxcarbazepine 6 ug/mL Critically low 10-35 [facility] Comment on above: Result Comment: This test was developed and its performance characteristics determined by [employer]. It has not been cleared or approved by the Food and Drug Administration. Detection Limit = 1 Performed By: #### O XCARB ####[facility] [address] [place] [address]Dr. Sammy Omer PROF 14(COMP METB)on 022 Albumin [Mass/Vol] 3.1 g/dL Critically low 3.4-5.0 [facility] Comment on above: Performed By: #### H STROPN, SALYC, ETH, TSH, ACET, CMP ####[facility] [address] [place] [address]Dr. Sammy Omer Albumin/Globulin [Mass ratio] 1.0 {ratio} Normal [facility] Comment on above: Performed By: #### H STROPN, SALYC, ETH, TSH, ACET, CMP ####[facility] [address] [place] [address]Dr. Sammy Omer ALP [Catalytic activity/Vol] 67 U/L Normal 46-116 [facility] Comment on above: Performed By: #### H STROPN, SALYC, ETH, TSH, ACET, CMP ####[facility] [address] [place] [address]Dr. Sammy Omer ALT [Catalytic activity/Vol] 25 U/L Normal 16-63 [facility] Comment on above: Performed By: #### H STROPN, SALYC, ETH, TSH, ACET, CMP ####[facility] [address] [place] [address]Dr. Sammy Omer Anion gap [Moles/Vol] 11.3 mmol/L Normal [facility] Comment on above: Performed By: #### H STROPN, SALYC, ETH, TSH, ACET, CMP ####[facility] [address] [place] [address]Dr. Sammy Omer AST [Catalytic activity/Vol] 40 U/L Critically high 15-37 [facility] Comment on above: Performed By: #### H STROPN, SALYC, ETH, TSH, ACET, CMP ####[facility] [address] [place] [address]Dr. Sammy Omer Bilirubin [Mass/Vol] 0.3 mg/dL Normal 0.2-1.0 [facility] Comment on above: Performed By: #### H STROPN, SALYC, ETH, TSH, ACET, CMP ####[facility] [address] [place] [address]Dr. Sammy Omer Calcium [Mass/Vol] 7.3 mg/dL Critically low 8.5-10.1 [facility] Comment on above: Performed By: #### H STROPN, SALYC, ETH, TSH, ACET, CMP ####[facility] [address] [place], [place] [address]Dr. Sammy Omer Chloride [Moles/Vol] 106 mmol/L Normal 98-107 [facility] Comment on above: Performed By: #### H STROPN, SALYC, ETH, TSH, ACET, CMP ####[facility] [address] [place] [address]Dr. Sammy Omer CO2 [Moles/Vol] 25.3 mmol/L Normal 21.0-32.0 [facility] Comment on above: Performed By: #### H STROPN, SALYC, ETH, TSH, ACET, CMP ####[facility] [address] [place], [place] [address]Dr. Sammy Omer Creatinine [Mass/Vol] 0.93 mg/dL Normal 0.70-1.30 [facility] Comment on above: Performed By: #### H STROPN, SALYC, ETH, TSH, ACET, CMP ####[facility] [address] [place] [address]Dr. Sammy Omer EGFR-AF BARBADIAN >60 Normal >=60 [facility] Comment on above: Performed By: #### H STROPN, SALYC, ETH, TSH, ACET, CMP ####[facility] [address] [place] [address]Dr. Sammy Omer EGFR-NON AF BARBADIAN >60 Normal >=60 [facility] Comment on above: Performed By: #### H STROPN, SALYC, ETH, TSH, ACET, CMP ####[facility] [address] [place] [address]Dr. Sammy Omer Globulin (S) [Mass/Vol] 3.2 g/dL Normal [facility] Comment on above: Performed By: #### H STROPN, SALYC, ETH, TSH, ACET, CMP ####[facility] [address] [place] [address]Dr. Sammy Omer Glucose [Mass/Vol] 87 mg/dL Normal 74-106 [facility] Comment on above: Performed By: #### H STROPN, SALYC, ETH, TSH, ACET, CMP ####[facility] [address] [place] [address]Dr. Sammy Omer Potassium [Moles/Vol] 3.6 mmol/L Normal 3.5-5.1 [facility] Comment on above: Performed By: #### H STROPN, SALYC, ETH, TSH, ACET, CMP ####[facility] [address] [place] [address]Dr. Sammy Omer Protein [Mass/Vol] 6.3 g/dL Critically low 6.4-8.2 [facility] Comment on above: Performed By: #### H STROPN, SALYC, ETH, TSH, ACET, CMP ####[facility] [address] [place] [address]Dr. Sammy Omer Sodium [Moles/Vol] 139 mmol/L Normal 136-145 [facility] Comment on above: Performed By: #### H STROPN, SALYC, ETH, TSH, ACET, CMP ####[facility] [address] [place] [address]Dr. Sammy Omer Urea nitrogen [Mass/Vol] 12.0 mg/dL Normal 7.0-18.0 [facility] Comment on above: Performed By: #### H STROPN, SALYC, ETH, TSH, ACET, CMP ####[facility] [address] [place] [address]Dr. Sammy Omer Urea nitrogen/Creatinine [Mass ratio] 12.9 mg/mg Normal The [facility] Comment on above: Performed By: #### H STROPN, SALYC, ETH, TSH, ACET, CMP ####[facility] [address] [place] [address]Dr. Sammy Omer PROTIMEon 04-17-2022 INR Coag (PPP) [Relative time] 1.21 {INR} Normal [facility] Comment on above: Performed By: #### C VDTBH #### [facility] [address] [address] [address] Sammy Omer INR GUIDELINES SEE BELOW Normal The [facility] Comment on above: Result Comment: MITA RED INR: 2.0 - 3.0 CONDITIONS NOT LISTED BELOW 2.5 - 3.5 FOR PROSTHETIC HEART VALVE REPLACEMENT 2.5 - 3.5 RECURRENT THROMBOSIS Performed By: #### C VDTBH #### [facility] [address] [address] [address] Sammy Omer PT Coag (PPP) [Time] 12.9 s Critically high 9.0-11.6 [facility] Comment on above: Performed By: #### C VDTBH #### [facility] [address] [address] [address] Sammy Omer PTTon 04-17-2022 aPTT Coag (Bld) [Time] 34.1 s Normal 22.3-36.2 [facility] Comment on above: Performed By: #### C VDTBH #### [facility] [address] [address] [address] Sammy Omer SALICYLATEon 04-17-2022 SALICYLATE 3.4 mg/dL Normal <=19.9 [facility] Comment on above: Performed By: #### H STROPN, SALYC, ETH, TSH, ACET, CMP ####[facility] [address] [place] [address]Dr. Sammy Omer TROPONIN, HIGH SENSITIVITYon 04-17-2022 HSTROP 6.9 pg/mL Normal 4.0-76.1 [facility] Comment on above: Result Comment: CUT- OFF POINTS HAVE BEEN ESTABLISHED BASED ON THE FOURTH UNIVERSAL DEFINITIONS OF MYOCARDIAL INFARCTION. THE UPPER REFERENCE LIMIT (URL) OF TROPONIN, DEFINED THE 99TH PERCENTILE OF cTnI DISTRIBUTION IN A REFERENCE POPULATION, HAS BEEN CONFIRMED THE DECISION THRESHOLD FOR UT DIAGNOSIS. Performed By: #### H STROPN, SALYC, ETH, TSH, ACET, CMP ####[facility] [address] [place] [id number]. Sammy Omer TSHon 04-17-2022 TSH 1.183 uIU/mL Normal 0.358-3.74 0 [facility] Comment on above: Performed By: #### H STROPN, SALYC, ETH, TSH, ACET, CMP ####[facility] [address] [place] [address]Dr. Sammy Omer XR CHEST 1 Von 04-17-2022 XR CHEST 1 V EXAMINATION: XR CHES T 1 V HISTORY: Seizure COMPARISON: Chest x-rays 12/02/2021 TECHNIQUE: 2 views FINDINGS: The lung parenchyma is free of consolidation or infiltrate. No pneumothorax or pleural effusion. The cardiac, mediastinal and hilar contours are normal. The visualized osseous structures exhibit no gross abnormality. IMPRESSION: No acute cardiopulmonary abnormality. Electronically authenticated by: WANDA PATRICIO Date: 2022-04-17 17:26 Normal The [facility] CULTURE URINEon 03-03-2022 CULTURE URINE Culture Observations : NO GROWTH. Normal The [facility] Comment on above: Performed By: #### U RCX ####[facility] [address] [place] [id number]. Sammy Omer ER URINE PROFILEon 2 Bilirubin Ql (U) Negative Normal NEGATIVE The [facility] Comment on above: Performed By: #### U MICRO, ERUR ####[facility] [address] [place] [id number] Omer Clarity (U) CLEAR Normal CLEAR [facility] Comment on above: Performed By: #### U MICRO, ERUR ####[facility] [address] [place] [address]Dr. Sammy Omer Color (U) LT. YELLOW Normal YELLOW [facility] Comment on above: Performed By: #### U MICRO, ERUR ####[facility] [address] [place], [place] [address]Dr. Sammy Omer ERUAHD A micrscopic examina tion will be performed if indicated. Normal The [facility] Comment on above: Performed By: #### U MICRO, ERUR ####[facility] [address] [place], [place] [address]Dr. Sammy Omer Glucose Ql (U) Negative Normal NEGATIVE [facility] Comment on above: Performed By: #### U MICRO, ERUR ####[facility] [address] [place], [place] [address]Dr. Sammy Omer Hemoglobin Ql (U) Negative Normal NEGATIVE [facility] Comment on above: Performed By: #### U MICRO, ERUR ####[facility] [address] [place], [place] [address]Dr. Sammy Omer Ketones Ql (U) Negative Normal NEGATIVE [facility] Comment on above: Performed By: #### U MICRO, ERUR ####[facility] [address] [place], [place] [address]Dr. Sammy Omer LEUKOCYTES MODERATE Abnormal NEGATIVE [facility] Comment on above: Performed By: #### U MICRO, ERUR ####[facility] [address] [place], [place] [address]Dr. Sammy Omer Nitrite Ql (U) Positive Abnormal NEGATIVE The [facility] Comment on above: Performed By: #### U MICRO, ERUR ####[facility] [address] [place], [place] [address]Dr. Sammy Omer pH (U) 7.0 [pH] Normal 5-9 [facility] Comment on above: Performed By: #### U MICRO, ERUR ####[facility] [address] [place], [place] [address]Dr. Sammy Omer SPEC GRAVITY 1.010 Normal 1.005-<=1. 025 [facility] Comment on above: Performed By: #### U MICRO, ERUR ####[facility] [address] [place] [address]Dr. Sammy Omer UA PROTEIN Negative Normal NEGATIVE/ TRACE [facility] Comment on above: Performed By: #### U MICRO, ERUR ####[facility] [address] [place] [address]Dr. Sammy Omer UR MICRO IND INDICATED Normal [facility] Comment on above: Performed By: #### U MICRO, ERUR ####[facility] [address] [place], [place] [address]Dr. Sammy Omer Urobilinogen Qn (U) 0.2 {Yas'U}/dL Normal 0.2 - 1. 0 [facility] Comment on above: Performed By: #### U MICRO, ERUR ####[facility] [address] [place], [place] [address]Dr. Sammy Omer URINE MICROSCOPIC ONLYon BACTERIA SMALL Abnormal NONE SEEN The [facility] Comment on above: Performed By: #### U MICRO, ERUR ####[facility] [address] [place], [place] [address]Dr. Sammy Omer Bacteria identified Cx Nom (U) INDICATED Normal [facility] Comment on above: Performed By: #### U MICRO, ERUR ####[facility] [address] [place], [place] [address]Dr. Sammy Omer CAST NONE SEEN Normal NONE SEEN The [facility] Comment on above: Performed By: #### U MICRO, ERUR ####[facility] [address] [place], [place] [address]Dr. Sammy Omer Crystals LM Nom (Urine sed) NONE SEEN Normal NONE SEEN The [facility] Comment on above: Performed By: #### U MICRO, ERUR ####[facility] [address] [place], [place] [address]Dr. Sammy Omer Epithelial cells LM Ql (Urine sed) NONE SEEN Normal NONE SEEN /RARE The [facility] Comment on above: Performed By: #### U MICRO, ERUR ####[facility] [address] [place], [place] [address]Dr. Sammy Omer MUCOUS NONE SEEN Normal NONE SEEN The [facility] Comment on above: Performed By: #### U MICRO, ERUR ####[facility] [address] [place], [place] [address]Dr. Sammy Omer RBC NONE SEEN Abnormal 0-2 [facility] Comment on above: Performed By: #### U MICRO, ERUR ####[facility] [address] [place] [id number]. Sammy Omer WBC 10-20 Abnormal NONE SEEN The [facility] Comment on above: Performed By: #### U MICRO, ERUR ####[facility] [address] [place] [id number]. Sammy Omer US SCROTUM W VASCULAR ORGANo n 03-03-2022 US SCROTUM W VASCULAR ORGAN EXAMINATION: US SCROTUM W VASCULAR ORGAN HISTORY: Pain COMPARISON: No relevant comparison available. TECHNIQUE: High-resolution sonographic imaging of the scrotum and contents was performed. FINDINGS: The right testicle is normal in size, contour and homogeneous echotexture measuring 4.7 x 2.9 x 2.0 cm. Normal color and Doppler flow. Peripheral hyperechogenic focus possibly a 2 mm calcification The right epididymis is normal in appearance No hydrocele or varicocele The left testicle is normal in size, contour and homogeneous echotexture measuring 4.0 x 2.8 x 2.2 cm. Normal color and Doppler flow. The left epididymis is enlarged in size, hypervascular in appearance Moderate complex left hydrocele. No varicocele IMPRESSION: Left epididymitis with associated moderate complex hydrocele Electronically authenticated by: WANDA SALEEM Date: 2022-03-03 14:03 Normal The [facility] CT FACIAL BONES WO CONon CT FACIAL BONES WO CON EXAMINATION: CT FACIAL BONES WO CON HISTORY: Cough and sinus pressure for one week. COMPARISON: Head CT on 03/01/2021. TECHNIQUE: CT examination of the facial bones without IV contrast. Coronal and sagittal reformations were performed. Dose reduction techniques were achieved by using automated exposure control and/or adjustment of mA and/or kV according to patient size and/or use of iterative reconstruction technique. FINDINGS: The visualized intracranial contents and the visualized intraorbital contents appear normal. The upper neck shows no abnormal soft tissue mass. There is development of near complete opacification of the sphenoidal sinuses without bony erosions. There is development of partial opacification to of the left ethmoidal air cells posteriorly without bony erosions. Mild mucosal thickening in the maxillary sinuses. The ostiomeatal complexes show no bony anomaly. Nasal cavities are clear. The middle ear cavities and visualized mastoids are clear. IMPRESSION: Development of near complete opacification of the sphenoidal sinuses and partial opacification of the left posterior ethmoidal air cells without bony erosions. Mild mucosal thickening of the maxillary sinuses. Electronically authenticated by: TUSHAR MORRIS Date: 2021-12-02 22:02 Normal The [facility] CBC AUTO DIFFon 12-02-2021 BASO # 0.0 103/ul Normal 0.0-0.1 [facility] Comment on above: Performed By: #### C VDTB #### [facility] [address] [place] [address] Dr. Sammy Omer Basophils/100 WBC (Bld) 0.7 % Normal 0.2-2.0 [facility] Comment on above: Performed By: #### C VDTBH #### [facility] [address] [address] [address] Sammy Omer EO # 0.1 103/ul Normal 0.0-0.7 [facility] Comment on above: Performed By: #### C VDTBH #### [facility] [address] [address] [address] Sammy Omer Eosinophils/100 WBC (Bld) 1.7 % Normal 0.9-7.0 [facility] Comment on above: Performed By: #### C VDTBH #### [facility] [address] [address] [address] Sammy Omer Erythrocyte distribution width (RBC) [Ratio] 13.2 % Normal 11.0-15.0 [facility] Comment on above: Performed By: #### C VDTBH #### [facility] [address] [place] [address] Dr. Sammy Omer Hematocrit (Bld) [Volume fraction] 37.6 % Critically low 42.0-54.0 [facility] Comment on above: Performed By: #### C VDTBH #### [facility] [address] [place] [address] Dr. Sammy Omer Hemoglobin (Bld) [Mass/Vol] 12.9 g/dL Critically low 14.0-18.0 [facility] Comment on above: Performed By: #### C VDTBH #### [facility] [address] [place] [address] Dr. Sammy Omer IG # 0.01 10e3/ul Normal 0.00-0.03 [facility] Comment on above: Performed By: #### C VDTBH #### [facility] [address] [place] [address] Dr. Sammy Omer IG % 0.2 % Normal 0.0-0.5 [facility] Comment on above: Performed By: #### C VDTBH #### [facility] [address] [place] [address] Dr. Sammy Omer LYMPH # 2.2 103/ul Normal 1.2-3.8 [facility] Comment on above: Performed By: #### C VDTBH #### [facility] [address] [place] [address] Dr. Sammy Omer Lymphocytes/100 WBC (Bld) 37.8 % Normal 20.5-60.0 [facility] Comment on above: Performed By: #### C VDTBH #### [facility] [address] [place] [address] Dr. Sammy Omer MANUAL DIFF REQ NO Normal [facility] Comment on above: Performed By: #### C VDTBH #### [facility] [address] [place] [address] Dr. Sammy Omer MCH (RBC) [Entitic mass] 33.2 pg Normal 25.9-34.0 [facility] Comment on above: Performed By: #### C VDTBH #### [facility] [address] [place] [address] Dr. Sammy Omer MCHC (RBC) [Mass/Vol] 34.3 g/dL Normal 29.9-35.2 [facility] Comment on above: Performed By: #### C VDTBH #### [facility] [address] [place] [address] Dr. Sammy Omer MCV (RBC) [Entitic vol] 96.9 fL Critically high 80.0-94.0 [facility] Comment on above: Performed By: #### C VDTBH #### [facility] [address] [place] [address] Dr. Sammy Omer MONO # 0.4 103/ul Normal 0.3-0.8 [facility] Comment on above: Performed By: #### C VDTBH #### [facility] [address] [place] [address] Dr. Sammy Omer Monocytes/100 WBC (Bld) 7.3 % Normal 1.7-12.0 [facility] Comment on above: Performed By: #### C VDTBH #### [facility] [address] [place] [address] Dr. Sammy Omer NEUT # 3.1 103/ul Normal 1.4-6.5 [facility] Comment on above: Performed By: #### C VDTBH #### [facility] [address] [place] [address] Dr. Sammy Omer Neutrophils/100 WBC (Bld) 52.3 % Normal 43.0-75.0 [facility] Comment on above: Performed By: #### C VDTBH #### [facility] [address] [place] [address] Dr. Sammy Omer Platelet mean volume (Bld) [Entitic vol] 10.9 fL Normal 9.5-13.5 [facility] Comment on above: Performed By: #### C VDTBH #### [facility] [address] [place] [address] Dr. Sammy Omer PLT 151 103/ul Normal 150-450 [facility] Comment on above: Performed By: #### C VDTBH #### [facility] [address] [place] [address] Dr. Sammy Omer RBC 3.88 106/ul Critically low 4.70-6.10 [facility] Comment on above: Performed By: #### C VDTBH #### [facility] [address] [place] [address] Dr. Sammy Omer WBC 5.9 103/ul Normal 4.0-11.0 [facility] Comment on above: Performed By: #### C VDTBH #### [facility] [address] [place] [address] Dr. Sammy Omer Covid-19 PCR ([facility])on 11-05 SARS-CoV-2 (COVID-19) RNA MG+probe Ql (Unsp spec) Not detected Normal NOT DETECTED [facility] Comment on above: Result Comment: When diagnostic testing is negative, the possibility of a false negative should be considered in the context of a patient's recent exposures and the presence of clinical signs and symptoms consistent with SARS-CoV-2. This test is not yet approved or cleared by the [place] FDA. When there are no FDA-approved or cleared tests available, and other criteria are met, FDA can make tests available under an emergency access mechanism called an Emergency Use Authorization (EUA). The EUA for this test is supported by the [place] of Health and Human Service's declaration that circumstances exist to justify the emergency use of in vitro diagnostics for the detection and/or diagnosis of the virus that causes COVID-19. This EUA will remain in effect for the duration of the COVID-19 declaration justifying emergency of IVDs, unless it is terminated or revoked by the FDA (after which the test may no longer be used). Performed By: #### P HVEN #### [facility] [address] [place] [address] Dr. Sammy Omer ETHANOL (BLD ALC)on 12-03-19 ALC NOTE NOTE: 80 mg/dl is th e legal limit for a blood alcohol level Normal [facility] Comment on above: Performed By: #### P HVEN #### [facility] [address] [place] [address] Dr. Sammy Omer Ethanol [Mass/Vol] 281 mg/dL Normal [facility] Comment on above: Performed By: #### P HVEN #### [facility] [address] [place] [address] Dr. Sammy Omer LIPASEon 12-02-2021 Lipase [Catalytic activity/Vol] 139.0 U/L Normal 73.0-393.0 [facility] Comment on above: Performed By: #### C MP, LIPA, HSTROPN #### [facility] [address] [place] [address] Dr. Sammy Omer MAGNESIUMon 12-02-2021 Magnesium [Mass/Vol] 2.1 mg/dL Normal 1.8-2.4 [facility] Comment on above: Performed By: #### M G #### [facility] [address] [place] [address] Dr. Sammy Omer PROF 14(COMP METB)on 022 Albumin [Mass/Vol] 3.3 g/dL Critically low 3.4-5.0 [facility] Comment on above: Performed By: #### C MP, LIPA, HSTROPN #### [facility] [address] [place] [address] Dr. Sammy Omer Albumin/Globulin [Mass ratio] 0.9 {ratio} Normal [facility] Comment on above: Performed By: #### C MP, LIPA, HSTROPN #### [facility] [address] [place] [address] Dr. Sammy Omer ALP [Catalytic activity/Vol] 78 U/L Normal 46-116 [facility] Comment on above: Performed By: #### C MP, LIPA, HSTROPN #### [facility] [address] [place] [address] Dr. Sammy Omer ALT [Catalytic activity/Vol] 13 U/L Critically low 16-63 [facility] Comment on above: Performed By: #### C MP, LIPA, HSTROPN #### [facility] [address] [place] [address] Dr. Sammy Omer Anion gap [Moles/Vol] 11.7 mmol/L Normal [facility] Comment on above: Performed By: #### C MP, LIPA, HSTROPN #### [facility] [address] [place] [address] Dr. Sammy Omer AST [Catalytic activity/Vol] 20 U/L Normal 15-37 [facility] Comment on above: Performed By: #### C MP, LIPA, HSTROPN #### [facility] [address] [place] [address] Dr. Sammy Omer Bilirubin [Mass/Vol] 0.2 mg/dL Normal 0.2-1.0 [facility] Comment on above: Performed By: #### C MP, LIPA, HSTROPN #### [facility] [address] [place] [address] Dr. Sammy Omer Calcium [Mass/Vol] 7.9 mg/dL Critically low 8.5-10.1 [facility] Comment on above: Performed By: #### C MP, LIPA, HSTROPN #### [facility] [address] [place] [address] Dr. Sammy Omer Chloride [Moles/Vol] 105 mmol/L Normal 98-107 [facility] Comment on above: Performed By: #### C MP, LIPA, HSTROPN #### [facility] [address] [place] [address] Dr. Sammy Omer CO2 [Moles/Vol] 27.0 mmol/L Normal 21.0-32.0 [facility] Comment on above: Performed By: #### C MP, LIPA, HSTROPN #### [facility] [address] [place] [address] Dr. Sammy Omer Creatinine [Mass/Vol] 0.87 mg/dL Normal 0.70-1.30 [facility] Comment on above: Performed By: #### C MP, LIPA, HSTROPN #### [facility] [address] [place] [address] Dr. Sammy Omer EGFR-AF BARBADIAN >60 Normal >=60 [facility] Comment on above: Performed By: #### C MP, LIPA, HSTROPN #### [facility] [address] [place] [address] Dr. Sammy Omer EGFR-NON AF BARBADIAN >60 Normal >=60 [facility] Comment on above: Performed By: #### C MP, LIPA, HSTROPN #### [facility] [address] [address] [address] Sammy Omer Globulin (S) [Mass/Vol] 3.7 g/dL Normal [facility] Comment on above: Performed By: #### C MP, LIPA, HSTROPN #### [facility] [address] [address] [address] Sammy Omer Glucose [Mass/Vol] 98 mg/dL Normal 74-106 [facility] Comment on above: Performed By: #### C MP, LIPA, HSTROPN #### [facility] [address] [place] [address] Dr. Sammy Omer Potassium [Moles/Vol] 3.7 mmol/L Normal 3.5-5.1 [facility] Comment on above: Performed By: #### C MP, LIPA, HSTROPN #### [facility] [address] [address] [address] Sammy Omer Protein [Mass/Vol] 7.0 g/dL Normal 6.4-8.2 [facility] Comment on above: Performed By: #### C MP, LIPA, HSTROPN #### [facility] [address] [place] [address] Dr. Sammy Omer Sodium [Moles/Vol] 140 mmol/L Normal 136-145 [facility] Comment on above: Performed By: #### C MP, LIPA, HSTROPN #### [facility] [address] [place] [address] Dr. Sammy Omer Urea nitrogen [Mass/Vol] 6.0 mg/dL Critically low 7.0-18.0 [facility] Comment on above: Performed By: #### C MP, LIPA, HSTROPN #### [facility] [address] [place] [address] Dr. Smamy Omer Urea nitrogen/Creatinine [Mass ratio] 6.9 mg/mg Normal [facility] Comment on above: Performed By: #### C MP LIPA, HSTROPN #### [facility] [address] [address] [address] Sammy Omer TROPONIN, HIGH SENSITIVITYon 12-02-2021 HSTROP 4.3 pg/mL Normal 4.0-76.1 [facility] Comment on above: Result Comment: CUT- OFF POINTS HAVE BEEN ESTABLISHED BASED ON THE FOURTH UNIVERSAL DEFINITIONS OF MYOCARDIAL INFARCTION. THE UPPER REFERENCE LIMIT (URL) OF TROPONIN, DEFINED THE 99TH PERCENTILE OF cTnI DISTRIBUTION IN A REFERENCE POPULATION, HAS BEEN CONFIRMED THE DECISION THRESHOLD FOR UT DIAGNOSIS. Performed By: #### H STROPN #### [facility] [address] [address] [address] Sammy Omer HSTROP 4.3 pg/mL Normal 4.0-76.1 [facility] Comment on above: Result Comment: CUT- OFF POINTS HAVE BEEN ESTABLISHED BASED ON THE FOURTH UNIVERSAL DEFINITIONS OF MYOCARDIAL INFARCTION. THE UPPER REFERENCE LIMIT (URL) OF TROPONIN, DEFINED THE 99TH PERCENTILE OF cTnI DISTRIBUTION IN A REFERENCE POPULATION, HAS BEEN CONFIRMED THE DECISION THRESHOLD FOR UT DIAGNOSIS. Performed By: #### C SOUTH LIPA, HSTROPN #### [facility] [address] [place] [address] Dr. Sammy Omer XR CHEST 2 Von 12-02-2021 XR CHEST 2 V EXAM: XR CHEST 2 V HISTORY: COUGH COMPARISON: 10/04/2021 TECHNIQUE: Upright PA and lateral chest x-ray FINDINGS: The heart is not enlarged and there is mild prominence of the central pulmonary vasculature. Slight prominence of interstitial markings are seen diffusely throughout the lungs. No acute infiltrate, effusion or pneumothorax is identified. The osseous structures are grossly intact. IMPRESSION: No acute infiltrate or evidence of cardiac decompensation. Very mild chronic interstitial changes are present, the overall appearance of the chest is unchanged. Electronically authenticated by: TERRANCE WARNER Date: 2021-12-02 20:44 Normal [facility] CBC AUTO DIFFon 10-04-2021 BASO # 0.1 103/ul Normal 0.0-0.1 [facility] Comment on above: Performed By: #### P HVEN #### [facility] [address] [address] [address] Sammy Omer Basophils/100 WBC (Bld) 1.1 % Normal 0.2-2.0 [facility] Comment on above: Performed By: #### P HVEN #### [facility] [address] [address] [address] Sammy Omer EO # 0.1 103/ul Normal 0.0-0.7 [facility] Comment on above: Performed By: #### P HVEN #### [facility] [address] [place] [address] Dr. Sammy Omer Eosinophils/100 WBC (Bld) 1.9 % Normal 0.9-7.0 [facility] Comment on above: Performed By: #### P HVEN #### [facility] [address] [place] [address] Dr. Sammy Omer Erythrocyte distribution width (RBC) [Ratio] 13.5 % Normal 11.0-15.0 [facility] Comment on above: Performed By: #### P HVEN #### [facility] [address] [place] [address] Dr. Sammy Omer Hematocrit (Bld) [Volume fraction] 43.5 % Normal 42.0-54.0 [facility] Comment on above: Performed By: #### P HVEN #### [facility] [address] [place] [address] Dr. Sammy Omer Hemoglobin (Bld) [Mass/Vol] 14.7 g/dL Normal 14.0-18.0 [facility] Comment on above: Performed By: #### P HVEN #### [facility] [address] [place] [address] Dr. Sammy Omer IG # 0.02 10e3/ul Normal 0.00-0.03 [facility] Comment on above: Performed By: #### P HVEN #### [facility] [address] [place] [address] Dr. Sammy Omer IG % 0.4 % Normal 0.0-0.5 [facility] Comment on above: Performed By: #### P HVEN #### [facility] [address] [address] [address] Sammy Omer LYMPH # 2.6 103/ul Normal 1.2-3.8 [facility] Comment on above: Performed By: #### P HVEN #### [facility] [address] [address] [address] Sammy Omer Lymphocytes/100 WBC (Bld) 46.0 % Normal 20.5-60.0 [facility] Comment on above: Performed By: #### P HVEN #### [facility] [address] [address] [address] Sammy Omer MANUAL DIFF REQ NO Normal [facility] Comment on above: Performed By: #### P HVEN #### [facility] [address] [place] [address] Dr. Sammy Omer MCH (RBC) [Entitic mass] 33.5 pg Normal 25.9-34.0 [facility] Comment on above: Performed By: #### P HVEN #### [facility] [address] [place] [address] Dr. Sammy Omer MCHC (RBC) [Mass/Vol] 33.8 g/dL Normal 29.9-35.2 [facility] Comment on above: Performed By: #### P HVEN #### [facility] [address] [address] [address] Sammy Omer MCV (RBC) [Entitic vol] 99.1 fL Critically high 80.0-94.0 [facility] Comment on above: Performed By: #### P HVEN #### [facility] [address] [place] [address] Dr. Sammy Omer MONO # 0.6 103/ul Normal 0.3-0.8 [facility] Comment on above: Performed By: #### P HVEN #### [facility] [address] [place] [address] Dr. Sammy Omer Monocytes/100 WBC (Bld) 10.2 % Normal 1.7-12.0 [facility] Comment on above: Performed By: #### P HVEN #### [facility] [address] [place] [address] Dr. Sammy Omer NEUT # 2.3 103/ul Normal 1.4-6.5 [facility] Comment on above: Performed By: #### P HVEN #### [facility] [address] [place] [address] Dr. Sammy Omer Neutrophils/100 WBC (Bld) 40.4 % Critically low 43.0-75.0 [facility] Comment on above: Performed By: #### P HVEN #### [facility] [address] [place] [address] Dr. Sammy Omer Platelet mean volume (Bld) [Entitic vol] 11.2 fL Normal 9.5-13.5 [facility] Comment on above: Performed By: #### P HVEN #### [facility] [address] [place] [address] Dr. Sammy Omer PLT 192 103/ul Normal 150-450 [facility] Comment on above: Performed By: #### P HVEN #### [facility] [address] [place] [address] Dr. Sammy Omer RBC 4.39 106/ul Critically low 4.70-6.10 [facility] Comment on above: Performed By: #### P HVEN #### [facility] [address] [place] [address] Dr. Sammy Omer WBC 5.7 103/ul Normal 4.0-11.0 [facility] Comment on above: Performed By: #### P HVEN #### [facility] [address] [place] [address] Dr. Sammy Omer [facility]06 SARS-CoV-2 (COVID-19) RNA MG+probe Ql (Unsp spec) Not detected Normal NOT DETECTED [facility] Comment on above: Result Comment: When diagnostic testing is negative, the possibility of a false negative should be considered in the context of a patient's recent exposures and the presence of clinical signs and symptoms consistent with SARS-CoV-2. This test is not yet approved or cleared by the [place] FDA. When there are no FDA-approved or cleared tests available, and other criteria are met, FDA can make tests available under an emergency access mechanism called an Emergency Use Authorization (EUA). The EUA for this test is supported by the [place] of Health and Human Service's declaration that circumstances exist to justify the emergency use of in vitro diagnostics for the detection and/or diagnosis of the virus that causes COVID-19. This EUA will remain in effect for the duration of the COVID-19 declaration justifying emergency of IVDs, unless it is terminated or revoked by the FDA (after which the test may no longer be used). Performed By: #### C VDTBH #### [facility] [address] [place] [address] Dr. Sammy Omer DRUG SCREEN RAPID (URINE)on 10-04-2021 AMP Positive Abnormal NEGATIVE [facility] Comment on above: Performed By: #### P HVEN #### [facility] [address] [place] [address] Dr. Sammy Omer BAR Negative Normal NEGATIVE [facility] Comment on above: Performed By: #### P HVEN #### [facility] [address] [place] [address] Dr. Sammy Omer BUP Negative Normal NEGATIVE [facility] Comment on above: Performed By: #### P HVEN #### [facility] [address] [place] [address] Dr. Sammy Omer BZO Negative Normal NEGATIVE [facility] Comment on above: Performed By: #### P HVEN #### [facility] [address] [place] [address] Dr. Sammy Omer BRIGITTE Negative Normal NEGATIVE [facility] Comment on above: Performed By: #### P HVEN #### [facility] [address] [place] [address] Dr. Sammy Omer CUT-OFFS SEE BELOW Normal [facility] Comment on above: Result Comment: AMP (Amphetamine): 500ng/mL, BAR (Barbituates): 200 ng/mL, BZO (Benzodiazepines): 150 ng/mL, BUP (Buprenorphine): 10 ng/mL, BRIGITTE (Cocaine): 150 ng/mL, mAMP (Methamphetamine): 500 ng/mL, MTD (Methadone): 200 ng/mL, OPI (Opiates): 100 ng/mL, OXY (Oxycodone): 100 ng/mL, PCP (Phencyclidine): 25 ng/mL, PPX (Propoxyphene): 300 ng/mL, THC (Cannabinoids): 50 ng/mL, TCA (Trycyclic Antidepressants): 300 ng/mL Performed By: #### P HVEN #### [facility] [address] [place] [address] Dr. Sammy Omer DRUG CUT HEADER DRUG CLASS TEST SYST EM CUT-OFF CONCENTRATIONS ARE FOLLOWS: Normal [facility] Comment on above: Performed By: #### P HVEN #### [facility] [address] [place] [address] Dr. Sammy Omer mAMP Positive Abnormal NEGATIVE [facility] Comment on above: Performed By: #### P HVEN #### [facility] [address] [place] [address] Dr. Sammy Omer MTD Negative Normal NEGATIVE [facility] Comment on above: Performed By: #### P HVEN #### [facility] [address] [place] [address] Dr. Sammy Omer OPI Negative Normal NEGATIVE [facility] Comment on above: Performed By: #### P HVEN #### [facility] [address] [place] [address] Dr. Sammy Omer OXY Negative Normal NEGATIVE [facility] Comment on above: Performed By: #### P HVEN #### [facility] [address] [address] [address] Sammy Omer PCP Negative Normal NEGATIVE [facility] Comment on above: Performed By: #### P HVEN #### [facility] [address] [address] [address] Sammy Omer PPX Negative Normal NEGATIVE [facility] Comment on above: Performed By: #### P HVEN #### [facility] [address] [place] [address] Dr. Sammy Omer TCA Negative Normal NEGATIVE [facility] Comment on above: Performed By: #### P HVEN #### [facility] [address] [address] [address] Sammy Omer THC Negative Normal NEGATIVE [facility] Comment on above: Performed By: #### P HVEN #### [facility] [address] [address] [address] Sammy Omer ER URINE PROFILEon 2 Bilirubin Ql (U) Negative Normal NEGATIVE [facility] Comment on above: Performed By: #### E RUR ####[facility] [address] [address]Dr[address] Sammy Omer Clarity (U) CLEAR Normal CLEAR [facility] Comment on above: Performed By: #### E RUR ####[facility] [address] [place], [place] [address]Dr. Sammy Omer Color (U) YELLOW Normal YELLOW [facility] Comment on above: Performed By: #### E RUR ####[facility] [address] [place], [place] [address]DrEverardo Omer ERUAHD A micrscopic examina tion will be performed if indicated. Normal [facility] Comment on above: Performed By: #### E RUR ####[facility] [address] [place], [place] [address]Dr. Sammy Omer Glucose Ql (U) Negative Normal NEGATIVE [facility] Comment on above: Performed By: #### E RUR ####[facility] [address] [place], [place] [address]Dr. Sammy Omer Hemoglobin Ql (U) Negative Normal NEGATIVE [facility] Comment on above: Performed By: #### E RUR ####[facility] [address] [address]Dr. Sammy Omer Ketones Ql (U) Negative Normal NEGATIVE [facility] Comment on above: Performed By: #### E RUR ####[facility] [address] [place], [place] [address]Dr. Sammy Omer LEUKOCYTES Negative Normal NEGATIVE [facility] Comment on above: Performed By: #### E RUR ####[facility] [address] [place], [place] [address]Dr. Sammy Omer Nitrite Ql (U) Negative Normal NEGATIVE [facility] Comment on above: Performed By: #### E RUR ####[facility] [address] [address]DrEverardo Omer pH (U) 6.0 [pH] Normal 5-9 [facility] Comment on above: Performed By: #### E RUR ####[facility] [address] [address]DrEverardo Omer SPEC GRAVITY 1.015 Normal 1.005-<=1. 025 [facility] Comment on above: Performed By: #### E RUR ####[facility] [address] [place], [place] [address]DrEverardo Omer UA PROTEIN Negative Normal NEGATIVE/ TRACE [facility] Comment on above: Performed By: #### E RUR ####[facility] [address] [place], [place] [address]DrEverardo Omer UR MICRO IND NOT INDICATED Normal [facility] Comment on above: Performed By: #### E RUR ####[facility] [address] [address]DrEverardo Omer Urobilinogen Qn (U) 0.2 {Yas'U}/dL Normal 0.2 - 1. 0 [facility] Comment on above: Performed By: #### E RUR ####[facility] [address] [place], [place] [address]DrEverardo Omer ETHANOL (BLD ALC)on 10-05-19 22 ALC NOTE NOTE: 80 mg/dl is th e legal limit for a blood alcohol level Normal [facility] Comment on above: Performed By: #### C VDTBH #### [facility] [address] [place] [address] Dr. Sammy Omer Ethanol [Mass/Vol] 331 mg/dL Normal [facility] Comment on above: Performed By: #### C VDTBH #### [facility] [address] [address] [address] Sammy Omer LACTATE/LACTIC ACIDon 2021 Lactate [Moles/Vol] 3.7 mmol/L Critically high 0.4-1.9 [facility] Comment on above: Performed By: #### H STRO #### [facility] [address] [place] [address] Dr. Sammy Omer PROF 14(COMP METB)on 022 Albumin [Mass/Vol] 4.0 g/dL Normal 3.4-5.0 [facility] Comment on above: Performed By: #### C VDTBH #### [facility] [address] [place] [address] Dr. Sammy Omer Albumin/Globulin [Mass ratio] 1.0 {ratio} Normal [facility] Comment on above: Performed By: #### C VDTBH #### [facility] [address] [place] [address] Dr. Sammy Omer ALP [Catalytic activity/Vol] 69 U/L Normal 46-116 [facility] Comment on above: Performed By: #### C VDTBH #### [facility] [address] [place] [address] Dr. Sammy Omer ALT [Catalytic activity/Vol] 25 U/L Normal 16-63 [facility] Comment on above: Performed By: #### C VDTBH #### [facility] [address] [place] [address] Dr. Sammy Omer Anion gap [Moles/Vol] 17.6 mmol/L Normal [facility] Comment on above: Performed By: #### C VDTBH #### [facility] [address] [place] [address] Dr. Sammy Omer AST [Catalytic activity/Vol] 39 U/L Critically high 15-37 [facility] Comment on above: Performed By: #### C VDTBH #### [facility] [address] [place] [address] Dr. Sammy Omer Bilirubin [Mass/Vol] 0.3 mg/dL Normal 0.2-1.0 [facility] Comment on above: Performed By: #### C VDTBH #### [facility] [address] [place] [address] Dr. Sammy Omer Calcium [Mass/Vol] 8.4 mg/dL Critically low 8.5-10.1 [facility] Comment on above: Performed By: #### C VDTBH #### [facility] [address] [place] [address] Dr. Sammy Omer Chloride [Moles/Vol] 103 mmol/L Normal 98-107 [facility] Comment on above: Performed By: #### C VDTBH #### [facility] [address] [place] [address] Dr. Sammy Omer CO2 [Moles/Vol] 22.3 mmol/L Normal 21.0-32.0 [facility] Comment on above: Performed By: #### C VDTBH #### [facility] [address] [place] [address] Dr. Sammy Omer Creatinine [Mass/Vol] 0.71 mg/dL Normal 0.70-1.30 [facility] Comment on above: Performed By: #### C VDTBH #### [facility] [address] [place] [address] Dr. Sammy Omer EGFR-AF BARBADIAN >60 Normal >=60 [facility] Comment on above: Performed By: #### C VDTBH #### [facility] [address] [place] [address] Dr. Sammy Omer EGFR-NON AF BAR[place]IAN >60 Normal >=60 [facility] Comment on above: Performed By: #### C VDTBH #### [facility] [address] [place] [address] Dr. Sammy Omer Globulin (S) [Mass/Vol] 4.0 g/dL Normal [facility] Comment on above: Performed By: #### C VDTBH #### [facility] [address] [place] [address] Dr. Sammy Omer Glucose [Mass/Vol] 67 mg/dL Critically low 74-106 [facility] Comment on above: Performed By: #### C VDTBH #### [facility] [address] [place] [address] Dr. Sammy Omer Potassium [Moles/Vol] 3.9 mmol/L Normal 3.5-5.1 [facility] Comment on above: Performed By: #### C VDTBH #### [facility] [address] [place] [address] Dr. Sammy Omer Protein [Mass/Vol] 8.0 g/dL Normal 6.4-8.2 [facility] Comment on above: Performed By: #### C VDTBH #### [facility] [address] [place] [address] Dr. Sammy Omer Sodium [Moles/Vol] 139 mmol/L Normal 136-145 [facility] Comment on above: Performed By: #### C VDTBH #### [facility] [address] [place] [address] Dr. Sammy Omer Urea nitrogen [Mass/Vol] 8.0 mg/dL Normal 7.0-18.0 [facility] Comment on above: Performed By: #### C VDTBH #### [facility] [address] [place] [address] Dr. Sammy Omer Urea nitrogen/Creatinine [Mass ratio] 11.3 mg/mg Normal [facility] [facility] Comment on above: Performed By: #### C VDTBH #### [facility] [address] [place] [address] Dr. Sammy Omer TROPONIN, HIGH SENSITIVITYon 10-04-2021 HSTROP 9.0 pg/mL Normal 4.0-76.1 [facility] Comment on above: Result Comment: CUT- OFF POINTS HAVE BEEN ESTABLISHED BASED ON THE FOURTH UNIVERSAL DEFINITIONS OF MYOCARDIAL INFARCTION. THE UPPER REFERENCE LIMIT (URL) OF TROPONIN, DEFINED THE 99TH PERCENTILE OF cTnI DISTRIBUTION IN A REFERENCE POPULATION, HAS BEEN CONFIRMED THE DECISION THRESHOLD FOR UT DIAGNOSIS. Performed By: #### C VDTBH #### [facility] [address] [place] [address] Dr. Sammy Omer XR CHEST 1 Von 10-04-2021 XR CHEST 1 V EXAMINATION: XR CHES T 1 V HISTORY: COUGH COMPARISON: 11/24/2020 TECHNIQUE: AP portable erect FINDINGS: LUNGS: No significant pulmonary parenchymal abnormalities. VASCULATURE: No increased pulmonary vasculature. PLEURA: No pneumothorax, effusion, or pleural thickening. CARDIAC: No cardiomegaly or cardiac silhouette abnormality. MEDIASTINUM: No visible mass or adenopathy. BONES: No fracture or visible bone lesion. OTHER: Vascular stent projects over the right neck, stable IMPRESSION: No acute disease. Electronically authenticated by: WANDA SALEEM Date: 2021-10-04 14:55 Normal The [facility] DRUG SCREEN RAPID (URINE)on 09-24-2021 AMP Negative Normal NEGATIVE [facility] Comment on above: Performed By: #### H STROPN #### [facility] [address] [place] [address] Dr. Sammy Omer BAR Negative Normal NEGATIVE [facility] Comment on above: Performed By: #### H STROPN #### [facility] [address] [place] [address] Dr. Sammy Omer BUP Negative Normal NEGATIVE [facility] Comment on above: Performed By: #### H STROPN #### [facility] [address] [place] [address] Dr. Sammy Omer BZO Positive Abnormal NEGATIVE [facility] Comment on above: Performed By: #### H STROPN #### [facility] [address] [place] [address] Dr. Sammy Omer BRIGITTE Negative Normal NEGATIVE [facility] Comment on above: Performed By: #### H STROPN #### [facility] [address] [place] [address] Dr. Sammy Omer CUT-OFFS SEE BELOW Normal [facility] Comment on above: Result Comment: AMP (Amphetamine): 500ng/mL, BAR (Barbituates): 200 ng/mL, BZO (Benzodiazepines): 150 ng/mL, BUP (Buprenorphine): 10 ng/mL, BRIGITTE (Cocaine): 150 ng/mL, mAMP (Methamphetamine): 500 ng/mL, MTD (Methadone): 200 ng/mL, OPI (Opiates): 100 ng/mL, OXY (Oxycodone): 100 ng/mL, PCP (Phencyclidine): 25 ng/mL, PPX (Propoxyphene): 300 ng/mL, THC (Cannabinoids): 50 ng/mL, TCA (Trycyclic Antidepressants): 300 ng/mL Performed By: #### H STROPN #### [facility] [address] [address] [address] Sammy Omer DRUG CUT HEADER DRUG CLASS TEST SYST EM CUT-OFF CONCENTRATIONS ARE FOLLOWS: Normal [facility] Comment on above: Performed By: #### H STROPN #### [facility] [address] [address] [address] Sammy Omer mAMP Negative Normal NEGATIVE [facility] Comment on above: Performed By: #### H STROPN #### [facility] [address] [address] [address] Sammy Omer MTD Negative Normal NEGATIVE [facility] Comment on above: Performed By: #### H STROPN #### [facility] [address] [place] [address] Dr. Sammy Omer OPI Negative Normal NEGATIVE [facility] Comment on above: Performed By: #### H STROPN #### [facility] [address] [address] [address] Sammy Omer OXY Negative Normal NEGATIVE [facility] Comment on above: Performed By: #### H STROPN #### [facility] [address] [place] [address] Dr. Sammy Omer PCP Negative Normal NEGATIVE [facility] Comment on above: Performed By: #### H STROPN #### [facility] [address] [place] [address] Dr. Sammy Omer PPX Negative Normal NEGATIVE [facility] Comment on above: Performed By: #### H STROPN #### [facility] [address] [place] [address] Dr. Sammy Omer TCA Negative Normal NEGATIVE [facility] Comment on above: Performed By: #### H STROPN #### [facility] [address] [place] [address] Dr. Sammy Omer THC Negative Normal NEGATIVE [facility] Comment on above: Performed By: #### H STROPN #### [facility] [address] [place] [address] Dr. Sammy Omer ER URINE PROFILEon 2 Bilirubin Ql (U) Negative Normal NEGATIVE [facility] Comment on above: Performed By: #### Chikis RIVERA, ERUR ####[facility] [address] [address]Dr. Sammy Omer Clarity (U) CLEAR Normal CLEAR [facility] Comment on above: Performed By: #### Chikis RIVERA, ERUR ####[facility] [address] [address]Dr. Yidarnell Omer Color (U) YELLOW Normal YELLOW [facility] Comment on above: Performed By: #### Chikis RIVERA, ERUR ####[facility] [address] [address]Dr. Vielkadarnell DELUNAD A micrscopic examina tion will be performed if indicated. Normal [facility] Comment on above: Performed By: #### Chikis RIVERA, ERUR ####[facility] [address] [address]Dr. Sammy Omer Glucose Ql (U) Negative Normal NEGATIVE [facility] Comment on above: Performed By: #### Chikis RIVERA, ERUR ####[facility] [address] [address]Dr. Sammy Omer Hemoglobin Ql (U) Negative Normal NEGATIVE [facility] Comment on above: Performed By: #### Chikis RIVERA, ERUR ####[facility] [address] [address]Dr. Sammy Omer Ketones Ql (U) Negative Normal NEGATIVE [facility] Comment on above: Performed By: #### Chikis RIVERA, ERUR ####[facility] [address] [address]Dr. Vielkalan Omer LEUKOCYTES Negative Normal NEGATIVE [facility] Comment on above: Performed By: #### Chikis RIVERA, ERUR ####[facility] [address] [address]Dr. Sammy Omer Nitrite Ql (U) Negative Normal NEGATIVE [facility] Comment on above: Performed By: #### Chikis RIVERA, ERUR ####[facility] [address] [address]Dr. Sammy Omer pH (U) 6.0 [pH] Normal 5-9 [facility] Comment on above: Performed By: #### D NICOLE, ERUR ####[facility] [address] [address]Dr. Sammy Omer SPEC GRAVITY 1.010 Normal 1.005-<=1. 025 [facility] Comment on above: Performed By: #### Chikis RIVERA, ERUR ####[facility] [address] [address]Dr. Sammy Omer UA PROTEIN Negative Normal NEGATIVE/ TRACE [facility] Comment on above: Performed By: #### Chikis RIVERA, ERUR ####[facility] [address] [address]Dr. Sammy Omer UR MICRO IND NOT INDICATED Normal [facility] Comment on above: Performed By: #### Chikis RIVERA, ERUR ####[facility] [address] [address]Dr. Sammy Omer Urobilinogen Qn (U) 0.2 {Yas'U}/dL Normal 0.2 - 1. 0 [facility] Comment on above: Performed By: #### Chikis RIVERA, ERUR ####[facility] [address] [address]Dr. Sammy Omer ACETAMINOPHENon 09-23-2021 Acetaminophen [Mass/Vol] ug/mL Critically low 10.0-30.0 [facility] Comment on above: Performed By: #### H LEIGH #### [facility] [address] [address] [address] Sammy Omer AMMONIAon 09-23-2021 Ammonia (P) [Moles/Vol] 21 umol/L Normal 11-32 [facility] Comment on above: Performed By: #### H LEIGH #### [facility] [address] [address] [address] Sammy Omer CARDIAC JESSICA ADMITon 022 CK [Catalytic activity/Vol] 226 U/L Normal 39-308 [facility] Comment on above: Performed By: #### H STROPN #### [facility] [address] [address] [address] Sammy Omer CK.MB [Mass/Vol] 2.06 ng/mL Normal <=3.60 [facility] Comment on above: Performed By: #### H STROPN #### [facility] [address] [place] [address] Dr. Sammy Omer HSTROP 4.5 pg/mL Normal 4.0-76.1 [facility] Comment on above: Result Comment: CUT- OFF POINTS HAVE BEEN ESTABLISHED BASED ON THE FOURTH UNIVERSAL DEFINITIONS OF MYOCARDIAL INFARCTION. THE UPPER REFERENCE LIMIT (URL) OF TROPONIN, DEFINED THE 99TH PERCENTILE OF cTnI DISTRIBUTION IN A REFERENCE POPULATION, HAS BEEN CONFIRMED THE DECISION THRESHOLD FOR UT DIAGNOSIS. Performed By: #### H STROPN #### [facility] [address] [place] [address] Dr. Sammy Omer MANUELITO 44 ng/mL Normal 16-96 [facility] Comment on above: Performed By: #### H STROPN #### [facility] [address] [place] [address] Dr. Sammy Omer CBC AUTO DIFFon 09-23-2021 BASO # 0.0 103/ul Normal 0.0-0.1 [facility] Comment on above: Performed By: #### P HVEN #### [facility] [address] [place] [address] Dr. Sammy Omer Basophils/100 WBC (Bld) 0.8 % Normal 0.2-2.0 [facility] Comment on above: Performed By: #### P HVEN #### [facility] [address] [address] [address] Sammy Omer EO # 0.1 103/ul Normal 0.0-0.7 [facility] Comment on above: Performed By: #### P HVEN #### [facility] [address] [place] [address] Dr. Sammy Omer Eosinophils/100 WBC (Bld) 3.1 % Normal 0.9-7.0 [facility] Comment on above: Performed By: #### P HVEN #### [facility] [address] [place] [address] Dr. Sammy Omer Erythrocyte distribution width (RBC) [Ratio] 12.9 % Normal 11.0-15.0 [facility] Comment on above: Performed By: #### P HVEN #### [facility] [address] [place] [address] Dr. Sammy Omer Hematocrit (Bld) [Volume fraction] 37.8 % Critically low 42.0-54.0 [facility] Comment on above: Performed By: #### P HVEN #### [facility] [address] [place] [address] Dr. Sammy Omer Hemoglobin (Bld) [Mass/Vol] 12.6 g/dL Critically low 14.0-18.0 [facility] Comment on above: Performed By: #### P HVEN #### [facility] [address] [place] [address] Dr. Sammy Omer IG # 0.01 10e3/ul Normal 0.00-0.03 [facility] Comment on above: Performed By: #### P HVEN #### [facility] [address] [place] [address] Dr. Sammy Omer IG % 0.3 % Normal 0.0-0.5 [facility] Comment on above: Performed By: #### P HVEN #### [facility] [address] [place] [address] Dr. Sammy Omer LYMPH # 2.3 103/ul Normal 1.2-3.8 [facility] Comment on above: Performed By: #### P HVEN #### [facility] [address] [place] [address] Dr. Sammy Omer Lymphocytes/100 WBC (Bld) 59.5 % Normal 20.5-60.0 [facility] Comment on above: Performed By: #### P HVEN #### [facility] [address] [place] [address] Dr. Sammy Omer MANUAL DIFF REQ NO Normal [facility] Comment on above: Performed By: #### P HVEN #### [facility] [address] [address] [address] Sammy Omer MCH (RBC) [Entitic mass] 33.3 pg Normal 25.9-34.0 [facility] Comment on above: Performed By: #### P HVEN #### [facility] [address] [address] [address] Sammy Omer MCHC (RBC) [Mass/Vol] 33.3 g/dL Normal 29.9-35.2 [facility] Comment on above: Performed By: #### P HVEN #### [facility] [address] [address] [address] Sammy Omer MCV (RBC) [Entitic vol] 100.0 fL Critically high 80.0-94.0 [facility] Comment on above: Performed By: #### P HVEN #### [facility] [address] [place] [address] Dr. Sammy Omer MONO # 0.4 103/ul Normal 0.3-0.8 [facility] Comment on above: Performed By: #### P HVEN #### [facility] [address] [address] [address] Sammy Omer Monocytes/100 WBC (Bld) 11.1 % Normal 1.7-12.0 [facility] Comment on above: Performed By: #### P HVEN #### [facility] [address] [address] [address] Sammy Omer NEUT # 1.0 103/ul Critically low 1.4-6.5 [facility] Comment on above: Performed By: #### P HVEN #### [facility] [address] [address] [address] Sammy Omer Neutrophils/100 WBC (Bld) 25.2 % Critically low 43.0-75.0 [facility] Comment on above: Performed By: #### P HVEN #### [facility] [address] [address] [address] Sammy Omer Platelet mean volume (Bld) [Entitic vol] 10.5 fL Normal 9.5-13.5 [facility] Comment on above: Performed By: #### P HVEN #### [facility] [address] [address] [address] Sammy Omer PLT 159 103/ul Normal 150-450 [facility] Comment on above: Performed By: #### P HVEN #### [facility] [address] [address] [address] Sammy Omer RBC 3.78 106/ul Critically low 4.70-6.10 [facility] Comment on above: Performed By: #### P HVEN #### [facility] [address] [address] [address] Sammy Omer WBC 3.9 103/ul Critically low 4.0-11.0 [facility] Comment on above: Performed By: #### P HVEN #### [facility] [address] [address] [address] CSPINE WO CONon 2 CT CSPINE WO CON EXAMINATION: CT CSPI NE WO CON HISTORY: MUSCLE WEAKNESS (GENERALIZED) , seizure COMPARISON: No relevant comparison available. TECHNIQUE: Axial, Coronal, and Sagittal images were created without IV contrast. Dose reduction techniques were achieved by using automated exposure control and/or adjustment of mA and/or kV according to patient size and/or use of iterative reconstruction technique. FINDINGS: VERTEBRAL BODIES: No fracture, pars defect, or osseous lesion. FACET JOINTS: No disruption or abnormal widening. CERVICAL DISCS: No significant disc/facet abnormality, spinal stenosis, or foraminal stenosis. CENTRAL CANAL: No spinal stenosis or evidence of hemorrhage. PARASPINAL AREA: Endovascular stent within the right vertebral artery adjacent C5 and C6. IMPRESSION: 1. No appreciable acute abnormality or significant degenerative changes. Electronically authenticated by: AILEEN REN Date: 2021-09-23 14:59 Normal The [facility] CT STROKE HEAD WOon 09-24-[address] STROKE HEAD WO EXAMINATION: CT STRO KE HEAD WO HISTORY: MUSCLE WEAKNESS (GENERALIZED) , seizure COMPARISON: CT head without 03/01/2021 TECHNIQUE: Axial CT images were obtained without IV contrast. Dose reduction techniques were achieved by using automated exposure control and/or adjustment of mA and/or kV according to patient size and/or use of iterative reconstruction technique. FINDINGS: BRAIN: No edema, hemorrhage, mass, acute infarction, or inappropriate atrophy. CSF SPACES: No hydrocephalus, subarachnoid hemorrhage, or mass. Appropriate for age. SKULL: No fracture, mass, or other significant visible lesion. SINUSES: No significant mucosal thickening or fluid on the limited views. ORBITS: No appreciable abnormality on the limited views. OTHER: Negative IMPRESSION: 1. No intracranial hemorrhage or suspicious findings. Normal CT appearance of the brain. Electronically authenticated by: AILEEN REN Date: 2021-09-23 14:46 Normal The [facility] ETHANOL (BLD ALC)on 09-24-19 22 ALC NOTE NOTE: 80 mg/dl is th e legal limit for a blood alcohol level Normal [facility] Comment on above: Performed By: #### H STROPN #### [facility] [address] [place] [address] Dr. Sammy Omer Ethanol [Mass/Vol] 282 mg/dL Normal [facility] Comment on above: Performed By: #### H STROPN #### [facility] [address] [place] [address] Dr. Sammy Omer LACTATE/LACTIC ACIDon 2021 Lactate [Moles/Vol] 2.2 mmol/L Critically high 0.4-1.9 [facility] Comment on above: Performed By: #### L ACT ####[facility] [address] [address]Dr. Sammy Omer MAGNESIUMon 09-23-2021 Magnesium [Mass/Vol] 2.2 mg/dL Normal 1.8-2.4 [facility] Comment on above: Performed By: #### P HVEN #### [facility] [address] [address] [address] Sammy Omer PH VENOUS BLOODon 09-23-2021 PCO2 VENOUS 50.2 mmHg Normal 40.0-52.0 [facility] Comment on above: Performed By: #### P HVEN #### [facility] [address] [place] [address] Dr. Sammy Omer pH VENOUS 7.363 Normal 7.330-7.43 0 [facility] Comment on above: Performed By: #### P HVEN #### [facility] [address] [address] [address] Sammy Omer PROF 14(COMP METB)on 022 Albumin [Mass/Vol] 3.5 g/dL Normal 3.4-5.0 [facility] Comment on above: Performed By: #### H STROPN #### [facility] [address] [address] [address] Sammy Omer Albumin/Globulin [Mass ratio] 1.0 {ratio} Normal [facility] Comment on above: Performed By: #### H STROPN #### [facility] [address] [address] [address] Sammy Omer ALP [Catalytic activity/Vol] 49 U/L Normal 46-116 [facility] Comment on above: Performed By: #### H STROPN #### [facility] [address] [place] [address] Dr. Sammy Omer ALT [Catalytic activity/Vol] 19 U/L Normal 16-63 [facility] Comment on above: Performed By: #### H STROPN #### [facility] [address] [address] [address] Sammy Omer Anion gap [Moles/Vol] 11.5 mmol/L Normal [facility] Comment on above: Performed By: #### H STROPN #### [facility] [address] [address] [address] Sammy Omer AST [Catalytic activity/Vol] 23 U/L Normal 15-37 [facility] Comment on above: Performed By: #### H STROPN #### [facility] [address] [place] [address] Dr. Sammy Omer Bilirubin [Mass/Vol] 0.3 mg/dL Normal 0.2-1.0 [facility] Comment on above: Performed By: #### H STROPN #### [facility] [address] [address] [address] Sammy Omer Calcium [Mass/Vol] 7.9 mg/dL Critically low 8.5-10.1 [facility] Comment on above: Performed By: #### H STROPN #### [facility] [address] [address] [address] Sammy Omer Chloride [Moles/Vol] 108 mmol/L Critically high 98-107 [facility] Comment on above: Performed By: #### H STROPN #### [facility] [address] [address] [address] Sammy Omer CO2 [Moles/Vol] 29.7 mmol/L Normal 21.0-32.0 [facility] Comment on above: Performed By: #### H STROPN #### [facility] [address] [address] [address] Sammy Omer Creatinine [Mass/Vol] 0.74 mg/dL Normal 0.70-1.30 [facility] Comment on above: Performed By: #### H STROPN #### [facility] [address] [address] [address] Sammy Omer EGFR-AF BARBADIAN >60 Normal >=60 [facility] Comment on above: Performed By: #### H STROPN #### [facility] [address] [address] [address] Sammy Omer EGFR-NON AF BARBADIAN >60 Normal >=60 [facility] Comment on above: Performed By: #### H STROPN #### [facility] [address] [address] [address] Sammy Omer Globulin (S) [Mass/Vol] 3.4 g/dL Normal [facility] Comment on above: Performed By: #### H STROPN #### [facility] [address] [address] [address] Sammy Omer Glucose [Mass/Vol] 83 mg/dL Normal 74-106 [facility] Comment on above: Performed By: #### H STROPN #### [facility] [address] [address] [address] Sammy Omer Potassium [Moles/Vol] 4.2 mmol/L Normal 3.5-5.1 [facility] Comment on above: Performed By: #### H STROPN #### [facility] [address] [address] [address] Sammy Omer Protein [Mass/Vol] 6.9 g/dL Normal 6.4-8.2 [facility] Comment on above: Performed By: #### H STROPN #### [facility] [address] [address] [address] Smamy Omer Sodium [Moles/Vol] 145 mmol/L Normal 136-145 [facility] Comment on above: Performed By: #### H STROPN #### [facility] [address] [address] [address] Sammy Omer Urea nitrogen [Mass/Vol] 7.0 mg/dL Normal 7.0-18.0 [facility] Comment on above: Performed By: #### H STROPN #### [facility] [address] [place] [address] Dr. Sammy Omer Urea nitrogen/Creatinine [Mass ratio] 9.5 mg/mg Normal [facility] Comment on above: Performed By: #### H STROPN #### [facility] [address] [place] [address] Dr. Sammy Omer PROTIMEon 09-23-2021 INR Coag (PPP) [Relative time] 1.12 {INR} Normal [facility] Comment on above: Performed By: #### P HVEN #### [facility] [address] [place] [address] Dr. Sammy Omer INR GUIDELINES SEE BELOW Normal [facility] Comment on above: Result Comment: MITA RED INR: 2.0 - 3.0 CONDITIONS NOT LISTED BELOW 2.5 - 3.5 FOR PROSTHETIC HEART VALVE REPLACEMENT 2.5 - 3.5 RECURRENT THROMBOSIS Performed By: #### P HVEN #### [facility] [address] [place] [address] Dr. Sammy Omer PT Coag (PPP) [Time] 12.0 s Critically high 9.0-11.6 [facility] Comment on above: Performed By: #### P HVEN #### [facility] [address] [place] [address] Dr. Sammy Omer PTTon 09-23-2021 aPTT Coag (Bld) [Time] 27.3 s Normal 22.3-36.2 [facility] Comment on above: Performed By: #### P HVEN #### [facility] [address] [place] [address] Dr. Sammy Omer SALICYLATEon 09-23-2021 SALICYLATE 4.8 mg/dL Normal <=19.9 [facility] Comment on above: Performed By: #### H STROPN #### [facility] [address] [address] [address] Sammy Omer TSHon 09-23-2021 TSH 0.695 uIU/mL Normal 0.358-3.74 0 [facility] Comment on above: Performed By: #### H STROPN #### [facility] [address] [place] [address] Dr. Sammy Omer TSH RANGE SEE BELOW Normal [facility] Comment on above: Result Comment: <0.3 4 UIU/ml HYPERTHYROID 0.34-5.60 UIU/ml EUTHYROID >5.60 UIU/ml HYPOTHYROID Performed By: #### H STROPN #### [facility] [address] [place] [address] Dr. Sammy Omer Drug Scr, Abuse, Uron 2017 Amphetamine(s),Ur Negative Normal NEG [facility] Comment on above: Result Comment: (Pos itive cutoff 1000 ng/mL) Performed By: #### T REP, HIVCMB, QBVD, TPPA ####[facility] [id number] [place] [address] Barbiturate(s),Ur Negative Normal NEG [facility] Comment on above: Result Comment: (Pos itive cutoff 200 ng/mL) Performed By: #### T REP, HIVCMB, QBVD, TPPA ####[facility] [id number] [place] [address] Base excess Calculated molar conc (Bld) Positive Abnormal NEG [facility] Comment on above: Result Comment: (Pos itive cutoff 300 ng/mL) Performed By: #### T REP, HIVCMB, QBVD, TPPA ####[facility] [id number] [place] [address] Benzodiazepine(s) Negative Normal NEG [facility] Comment on above: Result Comment: (Pos itive cutoff 200 ng/mL) Performed By: #### T REP, HIVCMB, QBVD, TPPA ####[facility] [address] [place] [address] Cannabinoid(s),Ur Positive Abnormal NEG [facility] Comment on above: Result Comment: (Pos itive cutoff 50 ng/mL) Performed By: #### T REP, HIVCMB, QBVD, TPPA ####[address] [address] Interpretive Info Assay provides medic al screening only. The absence of expected drug(s) and/or Normal [facility] Comment on above: Result Comment: meta bolite(s) may indicate diluted or adulterated urine, limitations of testing or timing of collection.Testing for legal purposes should be confirmed by another method. To request confirmation of test result, please call the lab within 7 days of sample submission. Performed By: #### T REP, HIVCMB, QBVD, TPPA ####[facility] Number [id number] [place] [address] Methadone Ql (U) Negative Normal NEG [facility] Comment on above: Result Comment: (Pos itive cutoff 300 ng/mL) Performed By: #### T REP, HIVCMB, QBVD, TPPA ####[facility] Zhcidzrtzwlp8668 [place] [address] Opiate(s), Ur Negative Normal NEG [facility] Comment on above: Result Comment: (Pos itive cutoff 300 ng/mL) Performed By: #### T REP, HIVCMB, QBVD, TPPA ####[facility] [address] [place] [address] Oxycodone, Urine Negative Normal NEG [facility] Comment on above: Result Comment: (Pos itive cutoff 100 ng/mL) Performed By: #### T REP, HIVCMB, QBVD, TPPA ####[facility] [address] [place] [address] Phencyclidine, Ur Negative Normal NEG [facility] Comment on above: Result Comment: (Pos itive cutoff 25 ng/mL) Performed By: #### T REP, HIVCMB, QBVD, TPPA ####[facility] [address] [place] [address] Buprenorphrine, Ur NOT REPORTED Normal NEG [facility] Comment on above: Performed By: #### T REP, HIVCMB, QBVD, TPPA ####[facility] [address] [place] [address] MDMA, Urine NOT REPORTED Normal NEG [facility] Comment on above: Performed By: #### T REP, HIVCMB, QBVD, TPPA ####[facility] [address]wwzrprf[address] [place] [address] Methamphetamine, Ur NOT REPORTED Normal NEG [facility] Comment on above: Performed By: #### T REP, HIVCMB, QBVD, TPPA ####[facility] [address]fm[address]vmg[address] [place] [address] Propoxyphene,Urine NOT REPORTED Normal NEG [facility] Comment on above: Performed By: #### T REP, HIVCMB, QBVD, TPPA ####[facility] [address] [place] [address] Tricyclic antidepressants Screen Ql (U) NOT REPORTED Normal NEG [facility] Comment on above: Performed By: #### T REP, HIVCMB, QBVD, TPPA ####[facility] [address] [place] [address] MRI BRAIN WO CONTRASTon 03-07 MRI BRAIN WO CONTRAST EXAMINATION:MRI OF THE BRAIN WITHOUT CONTRAST 03/24/2018 4:05 pmTECHNIQUE:Multiplanar multisequence MRI of the brain was performed without theadministration of intravenous contrast.COMPARISON:None.HIST ORY:ORDERING SYSTEM PROVIDED HISTORY: SYNCOPE/FAINTINGFINDINGS:INTR ACRANIAL STRUCTURES/VENTRICLES: There is no acute infarct. No mass effector midline shift. No evidence of an acute intracranial hemorrhage. Theventricles and sulci are normal in size and configuration. Thesellar/suprasellar regions appear unremarkable. The normal signal voidswithin the major intracranial vessels appear maintained.ORBITS: The visualized portion of the orbits demonstrate no acute abnormality.SINUSES: The visualized paranasal sinuses and mastoid air cells are wellaerated.BONES/SOFT TISSUES: The bone marrow signal intensity appears normal. The softtissues demonstrate no acute abnormality.IMPRESSION: No acute diseaseInterpreted by:GURINDER Palmerigned by:Lew Verde MD03/24/18inal result Normal [facility] Basic Metabolic Profon 03-23 (cont.) Normal [facility] Comment on above: Result Comment: Aver age GFR for 30-39 years old: 107 mL/min/1.73sq mChronic Kidney Disease: <60 mL/min/1.73sq mKidney failure: <15 mL/min/1.73sq meGFR calculated using average adult body mass. Additional eGFR calculator available at:http://www.CloudPrime.com/multiple_crcl_2012.htm Performed By: #### T REP, HIVCMB, QBVD, TPPA ####[employer] [place] [address] Anion gap 3 molar conc 13 mmol/L Normal 01-21 [facility] Comment on above: Performed By: #### T REP, HIVCMB, QBVD, TPPA ####[facility] [address] [place], [place] [id number] Calcium mass conc 8.6 mg/dL Normal 8.6-10.4 [facility] Comment on above: Performed By: #### T REP, HIVCMB, QBVD, TPPA ####[facility] [address] [place] [address] Chloride molar conc 103 mmol/L Normal 98-107 [facility] Comment on above: Performed By: #### T REP, HIVCMB, QBVD, TPPA ####[facility] [address]acyzg[address]19 [place] [address] CO2 molar conc 24 mmol/L Normal 20-31 [facility] Comment on above: Performed By: #### T REP, HIVCMB, QBVD, TPPA ####[facility] Sfifctxhllul0295 [place] [address] Creatinine mass conc 0.71 mg/dL Normal 0.70-1.20 [facility] Comment on above: Performed By: #### T REP, HIVCMB, QBVD, TPPA ####[facility] [address]4018 [place] [address] GFR, Amer >60 Normal >60 [facility] Comment on above: Performed By: #### T REP, HIVCMB, QBVD, TPPA ####[facility] [address]5678 [place] [address] GFR,non Amer >60 Normal >60 [facility] Comment on above: Performed By: #### T REP, HIVCMB, QBVD, TPPA ####[facility] Efcxwvqdqabq4808 [place] [address] Glucose mass conc 83 mg/dL Normal 70-99 [facility] Comment on above: Performed By: #### T REP, HIVCMB, QBVD, TPPA ####[facility] [address]fr[address]241 [place] [address] Potassium molar conc 4.0 mmol/L Normal 3.7-5.3 [facility] Comment on above: Performed By: #### T REP, HIVCMB, QBVD, TPPA ####[address] [address] Sodium molar conc 140 mmol/L Normal 135-144 [facility] Comment on above: Performed By: #### T REP, HIVCMB, QBVD, TPPA ####[address] [address] Urea nitrogen mass conc 5 mg/dL Low -20 [facility] Comment on above: Performed By: #### T REP, HIVCMB, QBVD, TPPA ####[address] [address] BUN/CRE Ratio NOT REPORTED Normal - [facility] Comment on above: Performed By: #### T REP, HIVCMB, QBVD, TPPA ####[address] [address] Staging: NOT REPORTED Normal [facility] Comment on above: Performed By: #### T REP, HIVCMB, QBVD, TPPA ####[address] [address] CBC with Diffon 03-23-2018 Abs. Basophil 0.11 k/uL Normal 0.00-0.20 [facility] Comment on above: Performed By: #### T REP, HIVCMB, QBVD, TPPA ####[address] [address] Abs.Imm.Granulocyte <0.03 Normal 0.00-0.30 [facility] Comment on above: Performed By: #### T REP, HIVCMB, QBVD, TPPA ####[address] [address] Abs.Neutrophil (Seg) 2.57 k/uL Normal 1.50-8.10 [facility] Comment on above: Performed By: #### T REP, HIVCMB, QBVD, TPPA ####[facility] [address]zh[address]99 [place] [address] Basophils/100 WBC Auto (Bld) 2 % Normal 0-2 [facility] Comment on above: Performed By: #### T REP, HIVCMB, QBVD, TPPA ####[address] [address] Eosinophils Auto #/vol (Bld) 0.29 10*3/uL Normal 0.00-0.44 [facility] Comment on above: Performed By: #### T REP, HIVCMB, QBVD, TPPA ####[address] [address] Eosinophils/100 WBC Auto (Bld) 5 % High 1-4 [facility] Comment on above: Performed By: #### T REP, HIVCMB, QBVD, TPPA ####[place] [place] [address] Erythrocyte distribution width Auto Ratio (RBC) 13.2 % Normal 11.8-14.4 [facility] Comment on above: Performed By: #### T REP, HIVCMB, QBVD, TPPA ####[facility] [address]lurns[address] [place] [address] Hematocrit Auto Volume Fraction (Bld) 42.5 % Normal 40.7-50.3 [facility] Comment on above: Performed By: #### T REP, HIVCMB, QBVD, TPPA ####[facility] [address] [place] [address] Hemoglobin mass conc (Bld) 14.6 g/dL Normal 13.0-17.0 [facility] Comment on above: Performed By: #### T REP, HIVCMB, QBVD, TPPA ####[address] [address] Immature granulocytes #/vol (Bld) 0 % Normal 0 [facility] Comment on above: Performed By: #### T REP, HIVCMB, QBVD, TPPA ####[address] [address] Lymphocytes Auto #/vol (Bld) 2.26 10*3/uL Normal 1.10-3.70 [facility] Comment on above: Performed By: #### T REP, HIVCMB, QBVD, TPPA ####[address] [address] Lymphocytes/100 WBC Auto (Bld) 37 % Normal 24-43 [facility] Comment on above: Performed By: #### T REP, HIVCMB, QBVD, TPPA ####[address] [address] MCH Auto Entitic mass (RBC) 35.9 pg High 25.2-33.5 [facility] Comment on above: Performed By: #### T REP, HIVCMB, QBVD, TPPA ####[address] [address] MCHC Auto mass conc (RBC) 34.4 g/dL Normal 28.4-34.8 [facility] Comment on above: Performed By: #### T REP, HIVCMB, QBVD, TPPA ####[address] [address] MCV Auto Entitic volume (RBC) 104.4 fL High 82.6-102.9 [facility] Comment on above: Performed By: #### T REP, HIVCMB, QBVD, TPPA ####[address] [address] Monocytes Auto #/vol (Bld) 0.91 10*3/uL Normal 0.10-1.20 [facility] Comment on above: Performed By: #### T REP, HIVCMB, QBVD, TPPA ####[address] [address] Monocytes/100 WBC Auto (Bld) 15 % High 3-12 [facility] Comment on above: Performed By: #### T REP, HIVCMB, QBVD, TPPA ####[address] [address] Neutrophil (Seg) 42 % Normal 36-65 [facility] Comment on above: Performed By: #### T REP, HIVCMB, QBVD, TPPA ####[address] [address] NRBC Automated 0.0 per 100 WBC Normal 0.0 [facility] Comment on above: Performed By: #### T REP, HIVCMB, QBVD, TPPA ####[address] [address] Platelets Auto #/vol (Bld) See Reflexed IPF Result Normal 138-453 [facility] Comment on above: Performed By: #### T REP, HIVCMB, QBVD, TPPA ####[address] [address] RBC Auto #/vol (Bld) 4.07 10*6/uL Low 4.21-5.77 [facility] Comment on above: Performed By: #### T REP, HIVCMB, QBVD, TPPA ####[address] [address] RBC morphology finding Nom (Bld) MACROCYTOSIS PRESENT Normal [facility] Comment on above: Performed By: #### T REP, HIVCMB, QBVD, TPPA ####[facility] [address]ff[address] [place] [address] WBC Auto #/vol (Bld) 6.2 10*3/uL Normal 3.5-11.3 [facility] Comment on above: Performed By: #### T REP, HIVCMB, QBVD, TPPA ####[facility] [address]omrrlobjuy[address] [place] [address] Auto Diff Performed NOT REPORTED Normal [facility] Comment on above: Performed By: #### T REP, HIVCMB, QBVD, TPPA ####[facility] Eabzlyuwnicl8986 [place] [address] Platelet mean volume Auto Entitic volume (Bld) NOT REPORTED Normal 8.1-13.5 [facility] Comment on above: Performed By: #### T REP, HIVCMB, QBVD, TPPA ####[facility] [address]ctybm[address]56 [place] [address] Platelets Auto #/vol (Bld) NOT REPORTED Normal [facility] Comment on above: Performed By: #### T REP, HIVCMB, QBVD, TPPA ####[facility] Cnmldjtmvobh5524 [place] [address] WBC Morphology NOT REPORTED Normal [facility] Comment on above: Performed By: #### T REP, HIVCMB, QBVD, TPPA ####[facility] [address]fs[address]hycxjnsv6542 [place] [address] CTA HEAD W CONTRASTon 2017 CTA HEAD W CONTRAST EXAMINATION:CTA OF T HE HEAD WITH CONTRAST 03/23/2018 4:39 pm:TECHNIQUE:CTA of the head/brain was performed with the administration of intravenouscontrast. Multiplanar reformatted images are provided for review. MIP imagesare provided for review. Dose modulation, iterative reconstruction, and/orweight based adjustment of the mA/kV was utilized to reduce the radiationdose to as low as reasonably achievable.COMPARISON:CT of the head March 21, 2018 and CTA headHISTORY:ORDERING SYSTEM PROVIDED HISTORY: hx of vertebral artery dissectionTECHNOLOGIST PROVIDED HISTORY:FINDINGS:ANTERIOR CIRCULATION: The internal carotid arteries are normal in course andcaliber without focal stenosis. The anterior cerebral and middle cerebralarteries demonstrate no focal stenosis.POSTERIOR CIRCULATION: The posterior cerebral arteries demonstrate no focalstenosis. The vertebral and basilar arteries appear unremarkable.BRAIN: No mass effect or midline shift. No abnormal extra-axial fluidcollection. The henning-white differentiation appears grossly maintained.IMPRESSION: Unremarkable CTA of the head.Interpreted by:GURINDER Palmerigned by:Lew Verde MD03/23/18inal result Normal [facility] CTA NECK W CONTRASTon 2017 CTA NECK W CONTRAST EXAMINATION:CTA OF T HE NECK 03/23/2018 4:39 pmTECHNIQUE:CTA of the neck was performed with the administration of intravenouscontrast. Multiplanar reformatted images are provided for review. MIP imagesare provided for review. Stenosis of the internal carotid arteries measuredusing NASCET criteria. Dose modulation, iterative reconstruction, and/orweight based adjustment of the mA/kV was utilized to reduce the radiationdose to as low as reasonably achievable.COMPARISON:CTA neck December 04, 2017HISTORY:ORDERING SYSTEM PROVIDED HISTORY: hx of vertebral artery dissectionTECHNOLOGIST PROVIDED HISTORY:FINDINGS:AORTIC ARCH/ARCH VESSELS: There is a normal branch pattern of the aorticarch. No significant stenosis is seen of the innominate artery or subclavianarteries.CAROTID ARTERIES: The common carotid arteries are normal in appearancewithout evidence of a flow limiting stenosis. The internal carotid arteriesare normal in appearance without evidence of a flow limiting stenosis byNASCET criteria. No dissection or arterial injury is seen.VERTEBRAL ARTERIES: There is a stent in the V2 segment of the vertebralartery on the right which appears patent although adjacent coils cause focalbeam hardening artifact an image degradation. The left vertebral arteryappears normal.SOFT TISSUES: The lung apices are clear. Paraseptal and centrilobularemphysema. No cervical or superior mediastinal lymphadenopathy. Thevisualized portion of the larynx and pharynx appear unremarkable. Theparotid, submandibular and thyroid glands demonstrate no acute abnormality.BONES: The visualized osseous structures appear unremarkable.IMPRESSION: No change in proximal right vertebral artery stent and coils.Interpreted by:GURINDER Palmerigned by:Lew Verde MD03/23/18inal result Normal [facility] Ethanol Alcoholon 03-23-2018 Ethanol mass conc 290 mg/dL High <10 [facility] Comment on above: Performed By: #### T REP, HIVCMB, QBVD, TPPA ####[facility] [address]ytczo[address]98 [place] [address] Ethanol percent 0.290 % Normal [facility] Comment on above: Performed By: #### T REP, HIVCMB, QBVD, TPPA ####[facility] [address]ax[address]642 [place] [address] PLT, Immature Fract.on 03-23 Platelet, Fluoresc. 141 k/uL Normal 138-453 [facility] Comment on above: Performed By: #### T REP, HIVCMB, QBVD, TPPA ####[facility] Jxqqvorcphkk3229 [place] [address] PLT, Immature Fract. 9.6 % Normal 1.1-10.3 [facility] Comment on above: Performed By: #### T REP, HIVCMB, QBVD, TPPA ####[facility] [address] [place] [address] Basic Metabolic Profon 03-21 (cont.) Normal [facility] Comment on above: Result Comment: Aver age GFR for 30-39 years old: 107 mL/min/1.73sq mChronic Kidney Disease: <60 mL/min/1.73sq mKidney failure: <15 mL/min/1.73sq meGFR calculated using average adult body mass. Additional eGFR calculator available at:http://www.CloudPrime.OANDA/multiple_crcl_2011.htm Performed By: #### T REP, HIVCMB, QBVD, TPPA ####[facility] Ttntlopahppf[address]8 [place] [address] Anion gap 3 molar conc 11 mmol/L Normal 9-17 [facility] Comment on above: Performed By: #### T REP, HIVCMB, QBVD, TPPA ####[facility] Vvxblxelpbwg6769 [place] [address] Calcium mass conc 8.7 mg/dL Normal 8.6-10.4 [facility] Comment on above: Performed By: #### T REP, HIVCMB, QBVD, TPPA ####[facility] Cfmowbcytbim[address]678 [place] [address] Chloride molar conc 101 mmol/L Normal 98-107 [facility] Comment on above: Performed By: #### T REP, HIVCMB, QBVD, TPPA ####[facility] Aipkfazybsrq2878 [place] [address] CO2 molar conc 24 mmol/L Normal 20-31 [facility] Comment on above: Performed By: #### T REP, HIVCMB, QBVD, TPPA ####[facility] Wdwoqmqllqci0128 [place] [address] Creatinine mass conc 0.79 mg/dL Normal 0.70-1.20 [facility] Comment on above: Performed By: #### T REP, HIVCMB, QBVD, TPPA ####[facility] [address]wzdhhp2063 [place] [address] GFR, Amer >60 Normal >60 [facility] Comment on above: Performed By: #### T REP, HIVCMB, QBVD, TPPA ####[facility] Ppvfpzalxdgq0748 [place] [address] GFR,non Amer >60 Normal >60 [facility] Comment on above: Performed By: #### T REP, HIVCMB, QBVD, TPPA ####[facility] Nvtlhgqjztrp0323 [place] [address] Glucose mass conc 170 mg/dL High 70-99 [facility] Comment on above: Performed By: #### T REP, HIVCMB, QBVD, TPPA ####[facility] [address]qjabrxgt0125 [place] [address] Potassium molar conc 3.9 mmol/L Normal 3.7-5.3 [facility] Comment on above: Performed By: #### T REP, HIVCMB, QBVD, TPPA ####[facility] [address]ns[address]ugycbc[address]44 [place] [address] Sodium molar conc 136 mmol/L Normal 135-144 [facility] Comment on above: Performed By: #### T REP, HIVCMB, QBVD, TPPA ####[facility] Ofzcdavquwza8763 [place] [address] Urea nitrogen mass conc 9 mg/dL Normal 6-20 [facility] Comment on above: Performed By: #### T REP, HIVCMB, QBVD, TPPA ####[facility] Yfakyambqnoo0805 [place] [address] BUN/CRE Ratio NOT REPORTED Normal 9-20 [facility] Comment on above: Performed By: #### T REP, HIVCMB, QBVD, TPPA ####[facility] Cgyigzmzdtya1457 [place] [address] Staging: NOT REPORTED Normal [facility] Comment on above: Performed By: #### T REP, HIVCMB, QBVD, TPPA ####[facility] Omnfavqblosm7484 [place] [address] CBC with Diffon 03-21-2018 Abs. Basophil 0.10 k/uL Normal 0.00-0.20 [facility] Comment on above: Performed By: #### T REP, HIVCMB, QBVD, TPPA ####[place] [address] Abs.Imm.Granulocyte 0.03 k/uL Normal 0.00-0.30 [facility] Comment on above: Performed By: #### T REP, HIVCMB, QBVD, TPPA ####[place] [address] Abs.Neutrophil (Seg) 2.98 k/uL Normal 1.50-8.10 [facility] Comment on above: Performed By: #### T REP, HIVCMB, QBVD, TPPA ####[address] [address] Basophils/100 WBC Auto (Bld) 2 % Normal 0-2 [facility] Comment on above: Performed By: #### T REP, HIVCMB, QBVD, TPPA ####[place] [address] Eosinophils Auto #/vol (Bld) 0.06 10*3/uL Normal 0.00-0.44 [facility] Comment on above: Performed By: #### T REP, HIVCMB, QBVD, TPPA ####[place] [address] Eosinophils/100 WBC Auto (Bld) 1 % Normal 1-4 [facility] Comment on above: Performed By: #### T REP, HIVCMB, QBVD, TPPA ####[place] [id number] Erythrocyte distribution width Auto Ratio (RBC) 13.2 % Normal 11.8-14.4 [facility] Comment on above: Performed By: #### T REP, HIVCMB, QBVD, TPPA ####[address] [address] Hematocrit Auto Volume Fraction (Bld) 42.4 % Normal 40.7-50.3 [facility] Comment on above: Performed By: #### T REP, HIVCMB, QBVD, TPPA ####[address] [address] Hemoglobin mass conc (Bld) 14.1 g/dL Normal 13.0-17.0 [facility] Comment on above: Performed By: #### T REP, HIVCMB, QBVD, TPPA ####[address] [address] Immature granulocytes #/vol (Bld) 1 % High 0 [facility] Comment on above: Performed By: #### T REP, HIVCMB, QBVD, TPPA ####[address] [address] Lymphocytes Auto #/vol (Bld) 1.63 10*3/uL Normal 1.10-3.70 [facility] Comment on above: Performed By: #### T REP, HIVCMB, QBVD, TPPA ####[address] [address] Lymphocytes/100 WBC Auto (Bld) 29 % Normal 24-43 [facility] Comment on above: Performed By: #### T REP, HIVCMB, QBVD, TPPA ####[address] [address] MCH Auto Entitic mass (RBC) 34.7 pg High 25.2-33.5 [facility] Comment on above: Performed By: #### T REP, HIVCMB, QBVD, TPPA ####[address] [address] MCHC Auto mass conc (RBC) 33.3 g/dL Normal 28.4-34.8 [facility] Comment on above: Performed By: #### T REP, HIVCMB, QBVD, TPPA ####[address] [address] MCV Auto Entitic volume (RBC) 104.4 fL High 82.6-102.9 [facility] Comment on above: Performed By: #### T REP, HIVCMB, QBVD, TPPA ####[address] [address] Monocytes Auto #/vol (Bld) 0.74 10*3/uL Normal 0.10-1.20 [facility] Comment on above: Performed By: #### T REP, HIVCMB, QBVD, TPPA ####[address] [address] Monocytes/100 WBC Auto (Bld) 13 % High 3-12 [facility] Comment on above: Performed By: #### T REP, HIVCMB, QBVD, TPPA ####[address] [address] Neutrophil (Seg) 54 % Normal 36-65 [facility] Comment on above: Performed By: #### T REP, HIVCMB, QBVD, TPPA ####[address] [address] NRBC Automated 0.0 per 100 WBC Normal 0.0 [facility] Comment on above: Performed By: #### T REP, HIVCMB, QBVD, TPPA ####[address] [address] Platelet mean volume Auto Entitic volume (Bld) 11.8 fL Normal 8.1-13.5 [facility] Comment on above: Performed By: #### T REP, HIVCMB, QBVD, TPPA ####[facility] Yrkzlwppxmon6662 [place] [address] Platelets Auto #/vol (Bld) 132 10*3/uL Low 138-453 [facility] Comment on above: Performed By: #### T REP, HIVCMB, QBVD, TPPA ####[address] [address] RBC Auto #/vol (Bld) 4.06 10*6/uL Low 4.21-5.77 [facility] Comment on above: Performed By: #### T REP, HIVCMB, QBVD, TPPA ####[address] [address] RBC morphology finding Nom (Bld) MACROCYTOSIS PRESENT Normal [facility] Comment on above: Performed By: #### T REP, HIVCMB, QBVD, TPPA ####[address] [address] WBC Auto #/vol (Bld) 5.5 10*3/uL Normal 3.5-11.3 [facility] Comment on above: Performed By: #### T REP, HIVCMB, QBVD, TPPA ####[address] [address] Auto Diff Performed NOT REPORTED Normal [facility] Comment on above: Performed By: #### T REP, HIVCMB, QBVD, TPPA ####[address] [address] Platelets Auto #/vol (Bld) NOT REPORTED Normal [facility] Comment on above: Performed By: #### T REP, HIVCMB, QBVD, TPPA ####[facility] [address] [place] [address] WBC Morphology NOT REPORTED Normal [facility] Comment on above: Performed By: #### T REP, HIVCMB, QBVD, TPPA ####[id number] CT CERVICAL SPINE WO CONTRAS Ton 03-21-2018 CT CERVICAL SPINE WO CONTRAST EXAMINATION:CT OF THE HEAD WITHOUT CONTRAST; CT OF THE CERVICAL SPINE WITHOUT GEWVHXST48/15/2018 7:20 pmTECHNIQUE:CT of the head was performed without the administration of intravenouscontrast. Dose modulation, iterative reconstruction, and/or weight basedadjustment of the mA/kV was utilized to reduce the radiation dose to as lowas reasonably achievable.; CT of the cervical spine was performed without theadministration of intravenous contrast. Multiplanar reformatted images areprovided for review. Dose modulation, iterative reconstruction, and/or weightbased adjustment of the mA/kV was utilized to reduce the radiation dose to aslow as reasonably achievable.COMPARISON:CT head 04 December 2017HISTORY:ORDERING SYSTEM PROVIDED HISTORY: fall; on plavixTECHNOLOGIST PROVIDED HISTORY:; ORDERING SYSTEM PROVIDED HISTORY: fall; point tendernessFINDINGS:CT HEAD:BRAIN/VENTRICLES: There is no acute intracranial hemorrhage, mass effect ormidline shift. No abnormal extra-axial fluid collection. The henning-whitedifferentiation is maintained without evidence of an acute infarct. There isno evidence of hydrocephalus.ORBITS: The visualized portion of the orbits demonstrate no acute abnormality.SINUSES: Mild mucoperiosteal thickening is present in the ethmoid air cells.The remainder of the paranasal sinuses are well aerated. Mastoid air cellsare unremarkable.SOFT TISSUES/SKULL: No acute abnormality of the visualized skull or softtissues.CT CERVICAL SPINE:BONES/ALIGNMENT: There is no evidence of an acute cervical spine fracture.There is normal alignment of the cervical spine.DEGENERATIVE CHANGES: Mild degenerative changes are present C6-C7. Neuralforamina are patent. Patient has a right proximal vertebral artery stent insitu. No gross canal stenosis.SOFT TISSUES: There is no prevertebral soft tissue swelling. Lung apicesdemonstrate blebs but no worrisome acute abnormality.Estimated biologic radiation dose for this procedure:1547.98 mGy/cm2.IMPRESSION: CT HEAD: No evidence of acute intracranial abnormality. Mild ethmoid sinusinflammation.CT CERVICAL SPINE: No acute abnormality of the cervical spine. Rightvertebral artery stent. Mild degenerative changes are present C6-C7.Interpreted by:GURINDER Salazarigned by:Kacie Amor MD03/21/18inal result Normal [facility] CT HEAD WO CONTRASTon 2017 CT HEAD WO CONTRAST EXAMINATION:CT OF TH E HEAD WITHOUT CONTRAST; CT OF THE CERVICAL SPINE WITHOUT VYVQZXTH58/15/2018 7:20 pmTECHNIQUE:CT of the head was performed without the administration of intravenouscontrast. Dose modulation, iterative reconstruction, and/or weight basedadjustment of the mA/kV was utilized to reduce the radiation dose to as lowas reasonably achievable.; CT of the cervical spine was performed without theadministration of intravenous contrast. Multiplanar reformatted images areprovided for review. Dose modulation, iterative reconstruction, and/or weightbased adjustment of the mA/kV was utilized to reduce the radiation dose to aslow as reasonably achievable.COMPARISON:CT head 04 December 2017HISTORY:ORDERING SYSTEM PROVIDED HISTORY: fall; on plavixTECHNOLOGIST PROVIDED HISTORY:; ORDERING SYSTEM PROVIDED HISTORY: fall; point tendernessFINDINGS:CT HEAD:BRAIN/VENTRICLES: There is no acute intracranial hemorrhage, mass effect ormidline shift. No abnormal extra-axial fluid collection. The henning-whitedifferentiation is maintained without evidence of an acute infarct. There isno evidence of hydrocephalus.ORBITS: The visualized portion of the orbits demonstrate no acute abnormality.SINUSES: Mild mucoperiosteal thickening is present in the ethmoid air cells.The remainder of the paranasal sinuses are well aerated. Mastoid air cellsare unremarkable.SOFT TISSUES/SKULL: No acute abnormality of the visualized skull or softtissues.CT CERVICAL SPINE:BONES/ALIGNMENT: There is no evidence of an acute cervical spine fracture.There is normal alignment of the cervical spine.DEGENERATIVE CHANGES: Mild degenerative changes are present C6-C7. Neuralforamina are patent. Patient has a right proximal vertebral artery stent insitu. No gross canal stenosis.SOFT TISSUES: There is no prevertebral soft tissue swelling. Lung apicesdemonstrate blebs but no worrisome acute abnormality.Estimated biologic radiation dose for this procedure:1547.98 mGy/cm2.IMPRESSION: CT HEAD: No evidence of acute intracranial abnormality. Mild ethmoid sinusinflammation.CT CERVICAL SPINE: No acute abnormality of the cervical spine. Rightvertebral artery stent. Mild degenerative changes are present C6-C7.Interpreted by:GURINDER Salazarigned by:Kacie Amor MD03/21/18Final result Normal [facility] Troponinon 03-21-2018 Troponin I.cardiac mass conc Normal [facility] Comment on above: Result Comment: Refe rence Range: <0.03 Within reference range. 0.03-0.09 Possible myocardial damage.Repeat at appropriate intervals to rule out chronic elevation. >= 0.10 Indicative of myocardial damage.Patients with high levels of Biotin oral intake (i.e >5mg/day) may have falsely decreased Troponin T levels. Samples collected within 8 hours of biotin intake may require additional information for diagnosis. Performed By: #### T REP, HIVCMB, QBVD, TPPA ####[facility] [address] [place], [place] [id number] Troponin T.cardiac mass conc ug/L Normal <0.03 [facility] Comment on above: Result Comment: Trop onin T results cannot be compared to Troponin-I results. Performed By: #### T REP, HIVCMB, QBVD, TPPA ####[facility] [address] [place], [place] [id number] XR CHEST (2 VW)on 03-21-2018 Protein mass conc EXAMINATION:TWO VIEW S OF THE CHEST03/21/2018 6:37 pmCOMPARISON:25 January 2016HISTORY:ORDERING SYSTEM PROVIDED HISTORY: SOBTECHNOLOGIST PROVIDED HISTORY:SOBFINDINGS:Overlying cardiac monitoring electrodes are present. No cardiomegaly,vascular congestion, effusion, or pneumothorax is noted. Osseous andmediastinal structures are age-appropriate. Right intravascular carotidartery stent is noted. Lung maravilla are hyperinflated suggestive of COPD.IMPRESSION: Findings suggestive of COPD. No evidence of acute cardiopulmonary disease.Interpreted by:GURINDER Salazarigned by:Kacie Amor MD03/21/18Final result Normal [facility] CBC with Diffon 01-24-2018 Abs. Basophil 0.10 k/uL Normal 0.00-0.20 [facility] Comment on above: Performed By: #### T REP, HIVCMB, QBVD, TPPA ####[place] [address] Abs.Imm.Granulocyte <0.03 Normal 0.00-0.30 [facility] Comment on above: Performed By: #### T REP, HIVCMB, QBVD, TPPA ####[place] [address] Abs.Neutrophil (Seg) 2.11 k/uL Normal 1.50-8.10 [facility] Comment on above: Performed By: #### T REP, HIVCMB, QBVD, TPPA ####[place] [address] Basophils/100 WBC Auto (Bld) 2 % Normal 0-2 [facility] Comment on above: Performed By: #### T REP, HIVCMB, QBVD, TPPA ####[address] [address] Eosinophils Auto #/vol (Bld) 0.48 10*3/uL High 0.00-0.44 [facility] Comment on above: Performed By: #### T REP, HIVCMB, QBVD, TPPA ####[place] [address] Eosinophils/100 WBC Auto (Bld) 7 % High 1-4 [facility] Comment on above: Performed By: #### T REP, HIVCMB, QBVD, TPPA ####[address] [address] Erythrocyte distribution width Auto Ratio (RBC) 13.3 % Normal 11.8-14.4 [facility] Comment on above: Performed By: #### T REP, HIVCMB, QBVD, TPPA ####[address] [address] Hematocrit Auto Volume Fraction (Bld) 42.4 % Normal 40.7-50.3 [facility] Comment on above: Performed By: #### T REP, HIVCMB, QBVD, TPPA ####[address] [address] Hemoglobin mass conc (Bld) 14.5 g/dL Normal 13.0-17.0 [facility] Comment on above: Performed By: #### T REP, HIVCMB, QBVD, TPPA ####[address] [address] Immature granulocytes #/vol (Bld) 0 % Normal 0 [facility] Comment on above: Performed By: #### T REP, HIVCMB, QBVD, TPPA ####[address] [address] Lymphocytes Auto #/vol (Bld) 3.47 10*3/uL Normal 1.10-3.70 [facility] Comment on above: Performed By: #### T REP, HIVCMB, QBVD, TPPA ####[address] [address] Lymphocytes/100 WBC Auto (Bld) 51 % High 24-43 [facility] Comment on above: Performed By: #### T REP, HIVCMB, QBVD, TPPA ####[address] [address] MCH Auto Entitic mass (RBC) 33.3 pg Normal 25.2-33.5 [facility] Comment on above: Performed By: #### T REP, HIVCMB, QBVD, TPPA ####[address] [address] MCHC Auto mass conc (RBC) 34.2 g/dL Normal 28.4-34.8 [facility] Comment on above: Performed By: #### T REP, HIVCMB, QBVD, TPPA ####[address] [address] MCV Auto Entitic volume (RBC) 97.2 fL Normal 82.6-102.9 [facility] Comment on above: Performed By: #### T REP, HIVCMB, QBVD, TPPA ####[address] [address] Monocytes Auto #/vol (Bld) 0.59 10*3/uL Normal 0.10-1.20 [facility] Comment on above: Performed By: #### T REP, HIVCMB, QBVD, TPPA ####[place] [address] Monocytes/100 WBC Auto (Bld) 9 % Normal 3-12 [facility] Comment on above: Performed By: #### T REP, HIVCMB, QBVD, TPPA ####[address] [address] Neutrophil (Seg) 31 % Low 36-65 [facility] Comment on above: Performed By: #### T REP, HIVCMB, QBVD, TPPA ####[address] [address] NRBC Automated 0.0 per 100 WBC Normal 0.0 [facility] Comment on above: Performed By: #### T REP, HIVCMB, QBVD, TPPA ####[place] [address] Platelet mean volume Auto Entitic volume (Bld) 11.4 fL Normal 8.1-13.5 [facility] Comment on above: Performed By: #### T REP, HIVCMB, QBVD, TPPA ####[facility] [address] [place] [address] Platelets Auto #/vol (Bld) 151 10*3/uL Normal 138-453 [facility] Comment on above: Performed By: #### T REP, HIVCMB, QBVD, TPPA ####[address] [address] RBC Auto #/vol (Bld) 4.36 10*6/uL Normal 4.21-5.77 [facility] Comment on above: Performed By: #### T REP, HIVCMB, QBVD, TPPA ####[address] [address] WBC Auto #/vol (Bld) 6.8 10*3/uL Normal 3.5-11.3 [facility] Comment on above: Performed By: #### T REP, HIVCMB, QBVD, TPPA ####[address] [address] Auto Diff Performed NOT REPORTED Normal [facility] Comment on above: Performed By: #### T REP, HIVCMB, QBVD, TPPA ####[address] [address] Platelets Auto #/vol (Bld) NOT REPORTED Normal [facility] Comment on above: Performed By: #### T REP, HIVCMB, QBVD, TPPA ####[address] [address] RBC morphology finding Nom (Bld) NOT REPORTED Normal [facility] Comment on above: Performed By: #### T REP, HIVCMB, QBVD, TPPA ####[address] [address] WBC Morphology NOT REPORTED Normal [facility] Comment on above: Performed By: #### T REP, HIVCMB, QBVD, TPPA ####[address] [place] [address] Comp Metabolic Profon 2017 (cont.) Normal [facility] Comment on above: Result Comment: Aver age GFR for 30-39 years old: 107 mL/min/1.73sq mChronic Kidney Disease: <60 mL/min/1.73sq mKidney failure: <15 mL/min/1.73sq meGFR calculated using average adult body mass. Additional eGFR calculator available at:http://www.LearnSprout/multiple_crcl_2011.htm Performed By: #### T REP, HIVCMB, QBVD, TPPA ####[address] [place] [address] Albumin mass conc 4.7 g/dL Normal 3.5-5.2 [facility] Comment on above: Performed By: #### T REP, HIVCMB, QBVD, TPPA ####[facility] Hospital[facility] [address]fl[address] [place] [address] Albumin/Globulin mass ratio 1.6 {ratio} Normal 1.0-2.5 [facility] Comment on above: Performed By: #### T REP, HIVCMB, QBVD, TPPA ####[facility] Hospital[facility] Number [address]yr[address] [place] [address] Alkaline Phos 55 U/L Normal 40-129 [facility] Comment on above: Performed By: #### T REP, HIVCMB, QBVD, TPPA ####[facility] [address]xryruhdksk[address] [place] [address] ALT enzyme act/vol 14 U/L Normal 5-41 [facility] Comment on above: Performed By: #### T REP, HIVCMB, QBVD, TPPA ####[facility] HospitalSandra [facility] [place] [address] Anion gap 3 molar conc 18 mmol/L High 9-17 [facility] Comment on above: Performed By: #### T REP, HIVCMB, QBVD, TPPA ####[address] [place] [address] AST enzyme act/vol 29 U/L Normal <40 [facility] Comment on above: Performed By: #### T REP, HIVCMB, QBVD, TPPA ####[address] [address] Bilirubin Ql (U) 0.40 mg/dL Normal 0.3-1.2 [facility] Comment on above: Performed By: #### T REP, HIVCMB, QBVD, TPPA ####[address] [address] Calcium mass conc 8.6 mg/dL Normal 8.6-10.4 [facility] Comment on above: Performed By: #### T REP, HIVCMB, QBVD, TPPA ####[address] [address] Chloride molar conc 101 mmol/L Normal 98-107 [facility] Comment on above: Performed By: #### T REP, HIVCMB, QBVD, TPPA ####[facility] [address] [place] [address] CO2 molar conc 22 mmol/L Normal 20-31 [facility] Comment on above: Performed By: #### T REP, HIVCMB, QBVD, TPPA ####[facility] [address] [place] [address] Creatinine mass conc 0.59 mg/dL Low 0.70-1.20 [facility] Comment on above: Performed By: #### T REP, HIVCMB, QBVD, TPPA ####[facility] [address] [place] [address] GFR, Amer >60 Normal >60 [facility] Comment on above: Performed By: #### T REP, HIVCMB, QBVD, TPPA ####[facility] [address] [place] [address] GFR,non Amer >60 Normal >60 [facility] Comment on above: Performed By: #### T REP, HIVCMB, QBVD, TPPA ####[facility] [address] [place] [address] Glucose mass conc 84 mg/dL Normal 70-99 [facility] Comment on above: Performed By: #### T REP, HIVCMB, QBVD, TPPA ####[facility] [address] [place] [address] Potassium molar conc 4.0 mmol/L Normal 3.7-5.3 [facility] Comment on above: Performed By: #### T REP, HIVCMB, QBVD, TPPA ####[facility] [address] [place] [address] Protein mass conc 7.6 g/dL Normal 6.4-8.3 [facility] Comment on above: Performed By: #### T REP, HIVCMB, QBVD, TPPA ####[facility] [address] [place] [address] Sodium molar conc 141 mmol/L Normal 135-144 [facility] Comment on above: Performed By: #### T REP, HIVCMB, QBVD, TPPA ####[facility] [address]zu[address]bgds[address] [place] [address] Urea nitrogen mass conc 6 mg/dL Normal 6-20 [facility] Comment on above: Performed By: #### T REP, HIVCMB, QBVD, TPPA ####[facility] [address] [place] [address] BUN/CRE Ratio NOT REPORTED Normal 01-24 [facility] Comment on above: Performed By: #### T REP, HIVCMB, QBVD, TPPA ####[facility] [address] [place] [address] Staging: NOT REPORTED Normal [facility] Comment on above: Performed By: #### T REP, HIVCMB, QBVD, TPPA ####[facility] [address] [place] [address] Creatine Kinaseon 01-24-2018 CK enzyme act/vol 150 U/L Normal 39-308 [facility] Comment on above: Result Comment: ADDE D ON Performed By: #### T REP, HIVCMB, QBVD, TPPA ####[facility] [address] [place] [address] Lactic Acid,Whole Blon 01-24 Lactic Acid,Whole Bl 2.1 mmol/L Normal 0.7-2.1 [facility] Comment on above: Performed By: #### T REP, HIVCMB, QBVD, TPPA ####[facility] [address] [place] [address] Magnesiumon 01-24-2018 Magnesium mass conc 2.2 mg/dL Normal 1.6-2.6 [facility] Comment on above: Performed By: #### T REP, HIVCMB, QBVD, TPPA ####[facility] [address] [place] [address] Myoglobinon 01-24-2018 Myoglobin mass conc ng/mL Low 28-72 [facility] Comment on above: Result Comment: ADDE D ON Performed By: #### T REP, HIVCMB, QBVD, TPPA ####[facility] [address] [place] [address] Tox Scr, Bld, EDon 8 Acetaminophen mass conc <5 Low 10-30 [facility] Comment on above: Performed By: #### T REP, HIVCMB, QBVD, TPPA ####[facility] [address] [place] [address] Ethanol mass conc 318 mg/dL Critically high <10 Me [facility] Comment on above: Performed By: #### T REP, HIVCMB, QBVD, TPPA ####[address] [address] Ethanol percent 0.318 % Normal [facility] Comment on above: Performed By: #### T REP, HIVCMB, QBVD, TPPA ####[facility] [address] [place] [address] Salicylate 1 mg/dL Low 3-10 [facility] Comment on above: Performed By: #### T REP, HIVCMB, QBVD, TPPA ####[facility] [address] [place] [address] Toxic Tricyclic Sc,Bl Negative Normal NEG [facility] Comment on above: Performed By: #### T REP, HIVCMB, QBVD, TPPA ####[address] [address] XR CHEST PORTABLEon 01-25-20 18 Protein mass conc EXAMINATION:SINGLE X RAY VIEW OF THE CHEST01/24/2018 1:10 pmCOMPARISON:12/04/2017HISTOR Y:ORDERING SYSTEM PROVIDED HISTORY: generalized myalgia, CP episode about 1month ago, smokerTECHNOLOGIST PROVIDED HISTORY:generalized myalgia, CP episode about 1 month ago, smokerFINDINGS:Single portable frontal view of the chest is submitted for review. Thecardiac silhouette is normal in size. Lung parenchyma is clear without focalairspace consolidation, sizeable pleural effusion, or pneumothorax. Tracheais midline. Visualized osseous structures and soft tissues are grosslyintact.IMPRESSION: No acute cardiopulmonary pathology.Interpreted by:GURINDER Gentileigned by:Cleve Herrera MD01/24/18Final result Normal [facility] Basic Metab w/rfx MGon 12-05 (cont.) Normal [facility] Comment on above: Result Comment: Aver age GFR for 30-39 years old: 107 mL/min/1.73sq mChronic Kidney Disease: <60 mL/min/1.73sq mKidney failure: <15 mL/min/1.73sq meGFR calculated using average adult body mass. Additional eGFR calculator available at:http://www.LearnSprout/multiple_crcl_2011.htm Performed By: #### C DP, BMPX, CRP, SED ####[facility] [address] [place] [address] Anion gap 3 molar conc 11 mmol/L Normal 9-17 [facility] Comment on above: Performed By: #### C DP, BMPX, CRP, SED ####[facility] HospitalRevWaspjnivzobs[address] [place] [address] Calcium mass conc 8.7 mg/dL Normal 8.6-10.4 [facility] Comment on above: Performed By: #### C DP, BMPX, CRP, SED ####[facility] HospitalRevShmtbhozvpzn[address] [place] [address] Chloride molar conc 104 mmol/L Normal 98-107 [facility] Comment on above: Performed By: #### C DP, BMPX, CRP, SED ####[facility] [address] [place] [address] CO2 molar conc 24 mmol/L Normal 20-31 [facility] Comment on above: Performed By: #### C DP, BMPX, CRP, SED ####[facility] [address] [place] [address] Creatinine mass conc 0.66 mg/dL Low 0.70-1.20 [facility] Comment on above: Performed By: #### C DP, BMPX, CRP, SED ####[address] [place] [address] GFR, Amer >60 Normal >60 [facility] Comment on above: Performed By: #### C DP, BMPX, CRP, SED ####[address] [address] GFR,non Amer >60 Normal >60 [facility] Comment on above: Performed By: #### C DP, BMPX, CRP, SED ####[address] [address] Glucose mass conc 80 mg/dL Normal 70-99 [facility] Comment on above: Performed By: #### C DP, BMPX, CRP, SED ####[address] [address] Potassium molar conc 4.1 mmol/L Normal 3.7-5.3 [facility] Comment on above: Performed By: #### C DP, BMPX, CRP, SED ####[address] [place] [address] Sodium molar conc 139 mmol/L Normal 135-144 [facility] Comment on above: Performed By: #### C DP, BMPX, CRP, SED ####[facility] [address] [place] [address] Urea nitrogen mass conc 8 mg/dL Normal 6-20 [facility] Comment on above: Performed By: #### C DP, BMPX, CRP, SED ####[facility] [address] [place] [address] BUN/CRE Ratio NOT REPORTED Normal 9-20 [facility] Comment on above: Performed By: #### C DP, BMPX, CRP, SED ####[address] [address] Staging: NOT REPORTED Normal [facility] Comment on above: Performed By: #### C DP, BMPX, CRP, SED ####[address] [address] C-Reactive Proteinon 018 CRP mass conc mg/L Normal 0.0-5.0 [facility] Comment on above: Result Comment: ADDE D ON Performed By: #### C DP, BMPX, CRP, SED ####[address] [address] CBC with Diffon 12-05-2017 Abs. Basophil 0.10 k/uL Normal 0.00-0.20 [facility] Comment on above: Performed By: #### C DP, BMPX, CRP, SED ####[address] [address] Abs.Imm.Granulocyte <0.03 Normal 0.00-0.30 [facility] Comment on above: Performed By: #### C DP, BMPX, CRP, SED ####[address] [address] Abs.Neutrophil (Seg) 2.09 k/uL Normal 1.50-8.10 [facility] Comment on above: Performed By: #### C DP, BMPX, CRP, SED ####[address] [address] Basophils/100 WBC Auto (Bld) 2 % Normal 0-2 [facility] Comment on above: Performed By: #### C DP, BMPX, CRP, SED ####[address] [address] Eosinophils Auto #/vol (Bld) 0.22 10*3/uL Normal 0.00-0.44 [facility] Comment on above: Performed By: #### C DP, BMPX, CRP, SED ####[address] [address] Eosinophils/100 WBC Auto (Bld) 4 % Normal 1-4 [facility] Comment on above: Performed By: #### C DP, BMPX, CRP, SED ####[address] [address] Erythrocyte distribution width Auto Ratio (RBC) 12.7 % Normal 11.8-14.4 [facility] Comment on above: Performed By: #### C DP, BMPX, CRP, SED ####[address] [address] Hematocrit Auto Volume Fraction (Bld) 41.4 % Normal 40.7-50.3 [facility] Comment on above: Performed By: #### C DP, BMPX, CRP, SED ####[address] [address] Hemoglobin mass conc (Bld) 13.7 g/dL Normal 13.0-17.0 [facility] Comment on above: Performed By: #### C DP, BMPX, CRP, SED ####[address] [address] Immature granulocytes #/vol (Bld) 0 % Normal 0 [facility] Comment on above: Performed By: #### C DP, BMPX, CRP, SED ####[address] [address] Lymphocytes Auto #/vol (Bld) 2.21 10*3/uL Normal 1.10-3.70 [facility] Comment on above: Performed By: #### C DP, BMPX, CRP, SED ####[address] [address] Lymphocytes/100 WBC Auto (Bld) 45 % High 24-43 [facility] Comment on above: Performed By: #### C DP, BMPX, CRP, SED ####[place] [address] MCH Auto Entitic mass (RBC) 32.5 pg Normal 25.2-33.5 [facility] Comment on above: Performed By: #### C DP, BMPX, CRP, SED ####[place] [address] MCHC Auto mass conc (RBC) 33.1 g/dL Normal 28.4-34.8 [facility] Comment on above: Performed By: #### C DP, BMPX, CRP, SED ####[place] [address] MCV Auto Entitic volume (RBC) 98.1 fL Normal 82.6-102.9 [facility] Comment on above: Performed By: #### C DP, BMPX, CRP, SED ####[place] [address] Monocytes Auto #/vol (Bld) 0.42 10*3/uL Normal 0.10-1.20 [facility] Comment on above: Performed By: #### C DP, BMPX, CRP, SED ####[place] [address] Monocytes/100 WBC Auto (Bld) 8 % Normal 3-12 [facility] Comment on above: Performed By: #### C DP, BMPX, CRP, SED ####[place] [address] Neutrophil (Seg) 41 % Normal 36-65 [facility] Comment on above: Performed By: #### C DP, BMPX, CRP, SED ####[address] [place] [address] NRBC Automated 0.0 per 100 WBC Normal 0.0 [facility] Comment on above: Performed By: #### C DP, BMPX, CRP, SED ####[address] [address] Platelet mean volume Auto Entitic volume (Bld) 12.1 fL Normal 8.1-13.5 [facility] Comment on above: Performed By: #### C DP, BMPX, CRP, SED ####[address] [address] Platelets Auto #/vol (Bld) 136 10*3/uL Low 138-453 [facility] Comment on above: Performed By: #### C DP, BMPX, CRP, SED ####[address] [address] RBC Auto #/vol (Bld) 4.22 10*6/uL Normal 4.21-5.77 [facility] Comment on above: Performed By: #### C DP, BMPX, CRP, SED ####[address] [address] WBC Auto #/vol (Bld) 5.1 10*3/uL Normal 3.5-11.3 [facility] Comment on above: Performed By: #### C DP, BMPX, CRP, SED ####[address] [address] Auto Diff Performed NOT REPORTED Normal [facility] Comment on above: Performed By: #### C DP, BMPX, CRP, SED ####[address] [address] Platelets Auto #/vol (Bld) NOT REPORTED Normal [facility] Comment on above: Performed By: #### C DP, BMPX, CRP, SED ####[facility] [address] [place] [address] RBC morphology finding Nom (Bld) NOT REPORTED Normal [facility] Comment on above: Performed By: #### C DP, BMPX, CRP, SED ####[facility] [address] [place] [address] WBC Morphology NOT REPORTED Normal [facility] Comment on above: Performed By: #### C DP, BMPX, CRP, SED ####[facility] [address] [place] [address] Sedimentation Rateon 12-05-2 018 Sedimentation Rate 2 mm Normal 0-10 [facility] Comment on above: Result Comment: ADDE D ON Performed By: #### C DP, BMPX, CRP, SED ####[facility] [address] [place] [address] CT HEAD WO CONTRASTon 2017 CT HEAD WO CONTRAST EXAMINATION:CT OF TH E HEAD WITHOUT CONTRAST 12/04/2017 3:17 pmTECHNIQUE:CT of the head was performed without the administration of intravenouscontrast. Dose modulation, iterative reconstruction, and/or weight basedadjustment of the mA/kV was utilized to reduce the radiation dose to as lowas reasonably achievable.COMPARISON:July 14HISTORY:ORDERING SYSTEM PROVIDED HISTORY: ams, recent vert art stent and coiling, offantiplateletsTECHNOLOGIST PROVIDED HISTORY:Has a code stroke or stroke alert been called?->NoFINDINGS:BRAIN/ABBY TRICLES: Ventricles and sulci are stable. There are no definite newareas of abnormal density. There is no hemorrhage or extra-axial collection.ORBITS: The visualized portion of the orbits demonstrate no acute abnormality.SINUSES: The visualized paranasal sinuses and mastoid air cells demonstrateno acute abnormality.SOFT TISSUES/SKULL: No acute abnormality of the visualized skull or softtissues.IMPRESSION: No acute intracranial abnormality.Interpreted by:GURINDER Duckworthigned by:Elvis Phipps MD12/04/17inal result Normal [facility] CTA HEAD W CONTRASTon 2017 CTA HEAD W CONTRAST EXAMINATION:CTA OF T HE HEAD WITH CONTRAST; CTA OF THE NECK 12/04/2017 3:31 pm:TECHNIQUE:CTA of the head/brain was performed with the administration of intravenouscontrast. Multiplanar reformatted images are provided for review. MIP imagesare provided for review. Dose modulation, iterative reconstruction, and/orweight based adjustment of the mA/kV was utilized to reduce the radiationdose to as low as reasonably achievable.; CTA of the neck was performed withthe administration of intravenous contrast. Multiplanar reformatted imagesare provided for review. MIP images are provided for review. Stenosis of theinternal carotid arteries measured using NASCET criteria. 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 Great vessel origins are patent.Emphysematous changes are noted in the apices. Apical scarring is also notedCAROTID ARTERIES: Left: Common carotid artery, bifurcation and internalcarotid artery are widely patent.Right: Common carotid artery, bifurcation and internal carotid artery arewidely patent. There is no significant narrowingVERTEBRAL ARTERIES: Left vertebral artery is widely patent throughout thecervical region. Patient is status post stenting of the right vertebralartery there is also a suggested coil mass along the margin of the stent. .Detail within the stent is limited due to artifact. Vertebral arteryopacifies above and below the stent. Visualized portions of the vertebralartery are widely patent without new area of stenosis or dissection.SOFT TISSUES: Multiple small lymph nodes are noted in the cervical regionbilaterally. There is no soft tissue mass lesion otherwise. There is nofluid collection.BONES: No destructive bone lesions are noted.CTA HEAD:ANTERIOR CIRCULATION: Distal internal carotid arteries, middle cerebralarteries and anterior cerebral arteries are patent without focal significantnarrowing. There is no aneurysm.POSTERIOR CIRCULATION: Distal vertebral arteries are widely patent. Basilarartery is widely patent. Posterior cerebral arteries are widely patent.There is no focal significant narrowing. There is no discrete aneurysm.Minimal irregularity of the distal posterior cerebral artery contours islikely artifactual.BRAIN: Parenchymal detail is limited due to artifact from slice thickness.There is no new area of abnormal density. There is no midline shiftIMPRESSION: Post stenting of the right vertebral artery. There is limitation at thestent levelOtherwise, there is no focal significant narrowing. There is no dissectionor aneurysm in the head or neckInterpreted by:GURINDER Duckworthigned by:Elvis Phipps MD12/04/17inal result Normal [facility] CTA NECK W CONTRASTon 2017 CTA NECK W CONTRAST EXAMINATION:CTA OF T HE HEAD WITH CONTRAST; CTA OF THE NECK 12/04/2017 3:31 pm:TECHNIQUE:CTA of the head/brain was performed with the administration of intravenouscontrast. Multiplanar reformatted images are provided for review. MIP imagesare provided for review. Dose modulation, iterative reconstruction, and/orweight based adjustment of the mA/kV was utilized to reduce the radiationdose to as low as reasonably achievable.; CTA of the neck was performed withthe administration of intravenous contrast. Multiplanar reformatted imagesare provided for review. MIP images are provided for review. Stenosis of theinternal carotid arteries measured using NASCET criteria. 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 Great vessel origins are patent.Emphysematous changes are noted in the apices. Apical scarring is also notedCAROTID ARTERIES: Left: Common carotid artery, bifurcation and internalcarotid artery are widely patent.Right: Common carotid artery, bifurcation and internal carotid artery arewidely patent. There is no significant narrowingVERTEBRAL ARTERIES: Left vertebral artery is widely patent throughout thecervical region. Patient is status post stenting of the right vertebralartery there is also a suggested coil mass along the margin of the stent. .Detail within the stent is limited due to artifact. Vertebral arteryopacifies above and below the stent. Visualized portions of the vertebralartery are widely patent without new area of stenosis or dissection.SOFT TISSUES: Multiple small lymph nodes are noted in the cervical regionbilaterally. There is no soft tissue mass lesion otherwise. There is nofluid collection.BONES: No destructive bone lesions are noted.CTA HEAD:ANTERIOR CIRCULATION: Distal internal carotid arteries, middle cerebralarteries and anterior cerebral arteries are patent without focal significantnarrowing. There is no aneurysm.POSTERIOR CIRCULATION: Distal vertebral arteries are widely patent. Basilarartery is widely patent. Posterior cerebral arteries are widely patent.There is no focal significant narrowing. There is no discrete aneurysm.Minimal irregularity of the distal posterior cerebral artery contours islikely artifactual.BRAIN: Parenchymal detail is limited due to artifact from slice thickness.There is no new area of abnormal density. There is no midline shiftIMPRESSION: Post stenting of the right vertebral artery. There is limitation at thestent levelOtherwise, there is no focal significant narrowing. There is no dissectionor aneurysm in the head or neckInterpreted by:GURINDER Duckworthigned by:Elvis Phipps MD12/04/17inal result Normal [facility] Drug Scr, Abuse, Uron 2017 Amphetamine(s),Ur Negative Normal NEG [facility] Comment on above: Result Comment: (Pos itive cutoff 1000 ng/mL) Performed By: #### D AU ####[address] [address] Barbiturate(s),Ur Negative Normal NEG [facility] Comment on above: Result Comment: (Pos itive cutoff 200 ng/mL) Performed By: #### D AU ####[address] [address] Base excess Calculated molar conc (Bld) Negative Normal NEG [facility] Comment on above: Result Comment: (Pos itive cutoff 300 ng/mL) Performed By: #### D AU ####[address] [address] Benzodiazepine(s) Negative Normal NEG [facility] Comment on above: Result Comment: (Pos itive cutoff 200 ng/mL) Performed By: #### D AU ####[address] [address] Cannabinoid(s),Ur Negative Normal NEG [facility] Comment on above: Result Comment: (Pos itive cutoff 50 ng/mL) Performed By: #### D AU ####[address] [address] Interpretive Info Assay provides medic al screening only. The absence of expected drug(s) and/or Normal [facility] Comment on above: Result Comment: meta bolite(s) may indicate diluted or adulterated urine, limitations of testing or timing of collection.Testing for legal purposes should be confirmed by another method. To request confirmation of test result, please call the lab within 7 days of sample submission. Performed By: #### D AU ####[address] [address] Methadone Ql (U) Negative Normal NEG [facility] Comment on above: Result Comment: (Pos itive cutoff 300 ng/mL) Performed By: #### D AU ####[address] [address] Opiate(s), Ur Negative Normal NEG [facility] Comment on above: Result Comment: (Pos itive cutoff 300 ng/mL) Performed By: #### D AU ####[address] [address] Oxycodone, Urine Negative Normal NEG [facility] Comment on above: Result Comment: (Pos itive cutoff 100 ng/mL) Performed By: #### D AU ####[facility] [address] [place] [address] Phencyclidine, Ur Negative Normal NEG [facility] Comment on above: Result Comment: (Pos itive cutoff 25 ng/mL) Performed By: #### D AU ####[address] [address] Buprenorphrine, Ur NOT REPORTED Normal NEG [facility] Comment on above: Performed By: #### D AU ####[address] [place] [address] MDMA, Urine NOT REPORTED Normal NEG [facility] Comment on above: Performed By: #### D AU ####[address] [place] [address] Methamphetamine, Ur NOT REPORTED Normal NEG [facility] Comment on above: Performed By: #### D AU ####[facility] [address] [place] [address] Propoxyphene,Urine NOT REPORTED Normal NEG [facility] Comment on above: Performed By: #### D AU ####[facility] [address] [place] [address] Tricyclic antidepressants Screen Ql (U) NOT REPORTED Normal NEG [facility] Comment on above: Performed By: #### D AU ####[facility] [address] [place] [address] Lipaseon 12-04-2017 Lipase enzyme act/vol 41 U/L Normal 13-60 [facility] Comment on above: Performed By: #### S MERVAT EDTOX, LIP, LIVP ####[facility] [address]le[address] [place] [address] Liver Profileon 12-04-2017 Albumin mass conc 4.2 g/dL Normal 3.5-5.2 [facility] Comment on above: Performed By: #### S MERVAT EDTOX, LIP, LIVP ####[facility] Rf[address]upcuyiz1772 [place] [address] Albumin/Globulin mass ratio 1.6 {ratio} Normal 1.0-2.5 [facility] Comment on above: Performed By: #### S MERVAT EDTOX, LIP, LIVP ####[facility] [address] [place] [address] Alkaline Phos 52 U/L Normal 40-129 [facility] Comment on above: Performed By: #### S MERVAT EDTOX, LIP, LIVP ####[facility] [address] [place] [address] ALT enzyme act/vol 11 U/L Normal 5-41 [facility] Comment on above: Performed By: #### S MERVAT EDTOX, LIP, LIVP ####[facility] [address] [place] [address] AST enzyme act/vol 18 U/L Normal <40 [facility] Comment on above: Performed By: #### S MERVAT EDTOX, LIP, LIVP ####[address] [address] Bilirubin Ql (U) 0.26 mg/dL Low 0.3-1.2 [facility] Comment on above: Performed By: #### S MERVAT EDTOX, LIP, LIVP ####[address] [address] Bilirubin, Indirect CANNOT BE CALCULATED Normal 0.00-1 .00 [facility] Comment on above: Performed By: #### S MERVAT EDTOX, LIP, LIVP ####[facility] [address] [place] [address] Bilirubin.direct mass conc mg/dL Normal <0.31 [facility] Comment on above: Performed By: #### S MERVAT EDTOX, LIP, LIVP ####[facility] [address] [place] [address] Protein mass conc 6.9 g/dL Normal 6.4-8.3 [facility] Comment on above: Performed By: #### S MERVAT EDTOX, LIP, LIVP ####[address] [address] Globulin Calculated mass conc (S) NOT REPORTED Normal 1.5-3.8 [facility] Comment on above: Performed By: #### S HARINDER CROWELLX, LIP, LIVP ####[facility] [address] [place] [address] Stroke Panelon 12-04-2017 % CKMB 1.6 % Normal 0.0-3.5 [facility] Comment on above: Performed By: #### S MERVAT EDTOX, LIP, LIVP ####[facility] [address] [place] [address] Anion gap 3 molar conc 13 mmol/L Normal 9-17 [facility] Comment on above: Performed By: #### HARINDER AKHTARX, LIP, LIVP ####[facility] [address] [place] [address] Calcium mass conc 8.1 mg/dL Low 8.6-10.4 [facility] Comment on above: Performed By: #### DOMINICK AKHTAR, LIP, LIVP ####[facility] [address] [place] [address] Chloride molar conc 105 mmol/L Normal 98-107 [facility] Comment on above: Performed By: #### HARINDER AKHTARX, LIP, LIVP ####[facility] [address] [place] [address] CK enzyme act/vol 76 U/L Normal 39-308 [facility] Comment on above: Performed By: #### HARINDER AKHTARX, LIP, LIVP ####[facility] [address] [place] [address] CK.MB mass conc NORMAL ISOENZYME PATTERN Normal [facility] Comment on above: Performed By: #### HARINDER AKHTARX, LIP, LIVP ####[facility] [address] [place] [address] CO2 molar conc 22 mmol/L Normal 20-31 [facility] Comment on above: Performed By: #### S MERVAT EDTOX, LIP, LIVP ####[facility] [address] [place] [address] Creatinine mass conc 0.55 mg/dL Low 0.70-1.20 [facility] Comment on above: Performed By: #### S MERVAT EDTOX, LIP, LIVP ####[facility] [address] [place] [address] GFR, Amer >60 Normal >60 [facility] Comment on above: Performed By: #### S MERVAT EDTOX, LIP, LIVP ####[facility] [address] [place] [address] GFR,non Amer >60 Normal >60 [facility] Comment on above: Performed By: #### S MERVAT EDTOX, LIP, LIVP ####[facility] [address] [place] [address] Glucose mass conc 85 mg/dL Normal 70-99 [facility] Comment on above: Performed By: #### S MERVAT EDTOX, LIP, LIVP ####[facility] [address] [place] [address] Potassium molar conc 4.2 mmol/L Normal 3.7-5.3 [facility] Comment on above: Performed By: #### S MERVAT EDTOX, LIP, LIVP ####[facility] [address] [place] [address] Sodium molar conc 140 mmol/L Normal 135-144 [facility] Comment on above: Performed By: #### S MERVAT EDTOX, LIP, LIVP ####[facility] [address] [place] [address] Urea nitrogen mass conc 5 mg/dL Low 6-20 [facility] Comment on above: Performed By: #### DOMINICK AKHTAR LIP, LIVP ####[facility] [address]jzaarpkm[address]139 [place] [address] (cont.) Normal [facility] Comment on above: Result Comment: Aver age GFR for 30-39 years old: 107 mL/min/1.73sq mChronic Kidney Disease: <60 mL/min/1.73sq mKidney failure: <15 mL/min/1.73sq meGFR calculated using average adult body mass. Additional eGFR calculator available at:http://www.LearnSpr[employer]/multiple_crcl_2012.htm Performed By: #### DOMINICK AKHTAR LIP, LIVP ####[facility] [address]16 [place] [address] CK-MB,Quantitative 1.2 ng/mL Normal <10.5 [facility] Comment on above: Performed By: #### DOMINICK AKHTAR LIP, LIVP ####[facility] [address]fwh[address] [place] [address] Myoglobin mass conc ng/mL Low 28-72 [facility] Comment on above: Performed By: #### DOMINICK AKHTAR LIP, LIVP ####[facility] F[address]kbkjmww3560 [place] [address] Troponin I.cardiac mass conc Normal [facility] Comment on above: Result Comment: Refe rence Range: <0.03 Within reference range. 0.03-0.09 Possible myocardial damage.Repeat at appropriate intervals to rule out chronic elevation. >= 0.10 Indicative of myocardial damage.Patients with high levels of Biotin oral intake (i.e >5mg/day) may have falsely decreased Troponin T levels. Samples collected within 8 hours of biotin intake may require additional information for diagnosis. Performed By: #### S DOMINICK CROWELL LIP, LIVP ####[facility] [address] [place] [address] Troponin T.cardiac mass conc ug/L Normal <0.03 [facility] Comment on above: Result Comment: Trop onin T results cannot be compared to Troponin-I results. Performed By: #### S DOMINICK CROWELL LIP, LIVP ####[facility] [address] [place] [address] aPTT Coag time (Bld) 25.6 s Normal 20.5-30.5 [facility] Comment on above: Performed By: #### DOMINICK AKHTAR LIP, LIVP ####[facility] [address] [place] [address] INR Coag RelTime (PPP) 1.1 {INR} Normal [facility] Comment on above: Result Comment: Ther apeutic Range: Moderate Anticoagulant Intensity: INR = 2.0-3.0 High Anticoagulant Intensity: INR = 2.5-3.5 Performed By: #### DOMINICK AKHTAR LIP, LIVP ####[facility] [address] [place] [address] Prothrombin time (PT) Coag time (PPP) 11.8 s Normal 9.0-12.0 [facility] Comment on above: Performed By: #### S DOMINICK CROWELL LIP, LIVP ####[facility] [address] [place] [address] Abs. Basophil 0.07 k/uL Normal 0.00-0.20 [facility] Comment on above: Performed By: #### DOMINICK AKHTAR LIP, LIVP ####[facility] [address] [place] [address] Abs.Imm.Granulocyte <0.03 Normal 0.00-0.30 [facility] Comment on above: Performed By: #### S MERVAT EDTOX, LIP, LIVP ####[address] [address] Abs.Neutrophil (Seg) 2.71 k/uL Normal 1.50-8.10 [facility] Comment on above: Performed By: #### S MERVAT EDTOX, LIP, LIVP ####[address] [address] Basophils/100 WBC Auto (Bld) 1 % Normal 0-2 [facility] Comment on above: Performed By: #### Vini CROWELL EDTOX, LIP, LIVP ####[address] [address] Eosinophils Auto #/vol (Bld) 0.29 10*3/uL Normal 0.00-0.44 [facility] Comment on above: Performed By: #### Vini CROWELL EDTOX, LIP, LIVP ####[address] [address] Eosinophils/100 WBC Auto (Bld) 5 % High 1-4 [facility] Comment on above: Performed By: #### Vini CROWELL EDTOX, LIP, LIVP ####[address] [address] Erythrocyte distribution width Auto Ratio (RBC) 12.8 % Normal 11.8-14.4 [facility] Comment on above: Performed By: #### S MERVAT EDTOX, LIP, LIVP ####[address] [address] Hematocrit Auto Volume Fraction (Bld) 44.0 % Normal 40.7-50.3 [facility] Comment on above: Performed By: #### Vini CROWELL EDTOX, LIP, LIVP ####[address] [place] [address] Hemoglobin mass conc (Bld) 14.9 g/dL Normal 13.0-17.0 [facility] Comment on above: Performed By: #### DOMINICK AKHTAR LIP, LIVP ####[address] [address] Immature granulocytes #/vol (Bld) 0 % Normal 0 [facility] Comment on above: Performed By: #### DOMINICK AKHTAR, LIP, LIVP ####[address] [address] Lymphocytes Auto #/vol (Bld) 2.85 10*3/uL Normal 1.10-3.70 [facility] Comment on above: Performed By: #### DOMINICK AKHTAR LIP, LIVP ####[address] [address] Lymphocytes/100 WBC Auto (Bld) 44 % High 24-43 [facility] Comment on above: Performed By: #### DOMINICK AKHTAR, LIP, LIVP ####[address] [address] MCH Auto Entitic mass (RBC) 33.4 pg Normal 25.2-33.5 [facility] Comment on above: Performed By: #### DOMINICK AKHTAR, LIP, LIVP ####[address] [address] MCHC Auto mass conc (RBC) 33.9 g/dL Normal 28.4-34.8 [facility] Comment on above: Performed By: #### Vini CROWELL EDTOX, LIP, LIVP ####[address] [address] MCV Auto Entitic volume (RBC) 98.7 fL Normal 82.6-102.9 [facility] Comment on above: Performed By: #### S TROKE, EDTOX, LIP, LIVP ####[address] [address] Monocytes Auto #/vol (Bld) 0.42 10*3/uL Normal 0.10-1.20 [facility] Comment on above: Performed By: #### S TROTEODORO, EDTOX, LIP, LIVP ####[address] [address] Monocytes/100 WBC Auto (Bld) 7 % Normal 3-12 [facility] Comment on above: Performed By: #### S TROTEODORO, EDTOX, LIP, LIVP ####[address] [address] Neutrophil (Seg) 43 % Normal 36-65 [facility] Comment on above: Performed By: #### S TROTEODORO, EDTOX, LIP, LIVP ####[address] [address] NRBC Automated 0.0 per 100 WBC Normal 0.0 [facility] Comment on above: Performed By: #### S TROTEODORO, EDTOX, LIP, LIVP ####[address] [address] Platelet mean volume Auto Entitic volume (Bld) 12.1 fL Normal 8.1-13.5 [facility] Comment on above: Performed By: #### S TROTEODORO, EDTOX, LIP, LIVP ####[address] [address] Platelets Auto #/vol (Bld) 159 10*3/uL Normal 138-453 [facility] Comment on above: Performed By: #### S TROKE, EDTOX, LIP, LIVP ####[address] [address] RBC Auto #/vol (Bld) 4.46 10*6/uL Normal 4.21-5.77 [facility] Comment on above: Performed By: #### S TROTEODORO, EDTOX, LIP, LIVP ####[facility] [address] [place] [address] WBC Auto #/vol (Bld) 6.4 10*3/uL Normal 3.5-11.3 [facility] Comment on above: Performed By: #### S MERVAT, EDTOX, LIP, LIVP ####[address] [address] Auto Diff Performed NOT REPORTED Normal [facility] Comment on above: Performed By: #### S MERVAT EDTOX, LIP, LIVP ####[address] [address] BUN/CRE Ratio NOT REPORTED Normal - [facility] Comment on above: Performed By: #### S MERVAT EDTOX, LIP, LIVP ####[facility] [address] [place] [address] Platelets Auto #/vol (Bld) NOT REPORTED Normal [facility] Comment on above: Performed By: #### S MERVAT, EDTOX, LIP, LIVP ####[facility] [address] [place] [address] RBC morphology finding Nom (Bld) NOT REPORTED Normal [facility] Comment on above: Performed By: #### S MERVAT, EDTOX, LIP, LIVP ####[facility] [address] [place] [address] Staging: NOT REPORTED Normal [facility] Comment on above: Performed By: #### S MERVAT, EDTOX, LIP, LIVP ####[facility] [address] [place] [address] WBC Morphology NOT REPORTED Normal [facility] Comment on above: Performed By: #### S MERVAT EDTOX, LIP, LIVP ####[facility] Mkdmlpymmtnn3453 [place] [address] Tox Scr, Bld, EDon 8 Acetaminophen mass conc <5 Low 10-30 [facility] Comment on above: Performed By: #### S MERVAT EDTOX, LIP, LIVP ####[facility] Hospital[facility] Number Wfbwzxbbcyrc0613 [place] [address] Ethanol mass conc 360 mg/dL Critically high <10 Me [facility] Comment on above: Performed By: #### Vini CROWELL, EDTOX, LIP, LIVP ####[facility] Ed[address]32 [place] [address] Ethanol percent 0.360 % Normal [facility] Comment on above: Performed By: #### S MERVAT EDTOX, LIP, LIVP ####[facility] Number Vrvfzebmvcbo6949 [place] [address] Salicylate <1 Low 3-10 [facility] Comment on above: Performed By: #### Vini CROWELL, EDTOX, LIP, LIVP ####[facility] [address]fs[address]24 [place] [address] Toxic Tricyclic Sc,Bl Negative Normal NEG [facility] Comment on above: Performed By: #### S MERVAT, EDTOX, LIP, LIVP ####[facility] Qxwmwpeootit3370 [place] [address] XR CHEST PORTABLEon 12-05-19 18 Protein mass conc EXAMINATION:SINGLE X RAY VIEW OF THE CHEST12/04/2017 2:31 pmCOMPARISON:None.HISTORY:ORD ERING SYSTEM PROVIDED HISTORY: chest painTECHNOLOGIST PROVIDED HISTORY:Reason for exam:->chest painFINDINGS:The cardiomediastinal silhouette is within normal limits. There is noconsolidation, pneumothorax or evidence for edema. No evidence for effusion.No acute osseous abnormality is identified. A vascular stent projects in theright neck.IMPRESSION: No acute airspace disease identified.Interpreted by:GURINDER Buschigned by:Jacob Nguyen MD12/04/17inal result Normal [facility] IR ANGIOGRAM CAROTID CEREBRA L BILATERALon 10-01-2017 IR ANGIOGRAM CAROTID CEREBRAL BILATERAL Date of Service 09/26/2017Diagnosis: Right vertebral artery pseudoaneurysm, s/p coil embolization with stent assistanceProcedure:1. Transarterial Coil Embolization of a right vertebral artery aneurysm with stent (Supera) assistance.2. Cerebral angiography.3. Intra-arterial nicardipine infusion x 1 hour.Vessels catheterized:Right vertebral artery.Right subclavian artery.Right femoral arteryNeurointerventionalist: Joseph Godinez MDFellow: BRENDA Bowdenontrast: 130 cc Of Visipaque-270Fluoro time: 26.4 minAccess: Right common femoral artery sheath placement.Anesthesia: General Endotracheal Anesthesia.Consent: After explaining the risk and benefit to the patient's family, including but not limited to stroke, coma, , vessel injury, dissection, tear, occlusion, X-ray dye allergic reaction; consent form was obtained.Indication and Clinical History: 36 yo man with sxs of left hemiparesis and dizziness in the setting of a right vertebral artery pseudoaneurysm. He is referred for endovascular treatmentDescription of Procedure: The patient was brought to the interventional suite by the anesthesia team and placed in a supine position on the angio table and general anesthesia is administered. The right groin region was prepped, draped and cleaned in a sterile fashion. The right common femoral artery was accessed via single wall needle technique and an 6F x 90cm shuttle sheath was placed. A 130cm 5F Streemioenstein catheter was advanced over a guidewire to the right innominate, subclavian artery, then the right vertebral artery. 10mg nicardipine was allowed to infuse through the guide catheter over the duration of 1 hour. Biplane images of the cervical VA artery, then the intracranial posterior circulation via a right VA injection were obtained. 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 There is an approximately 4.2mm x 8.5mm pseudoaneurysm in the V1 segment, between the C6 and C7 vertebrae, with an aneurysm neck measuring approximately 5.9mm. The VA is narrowed to approximately 1.8mm just prior to the pseudoaneurysm. After angiographic evaluation, a 4.5mm x 30mm Supera stent was advanced across the lesion and deployed spanning the C6 to C7 vertebrae. Subsequently, an [place] SL-10 micro-catheter (straight tip, which was shaped) was advanced over a Synchro2 .014 micro-wire and used to cross the struts of the Supera stent into the aneurysm lumen under fluoroscopic and roadmap guidance. The following coils were implanted:Penumbra Smart Coil 2.5mm x 4cm Extra SoftPenumbra Smart Coil 2mm x 3cm Extra SoftPenumbra Smart Coil 2mm x 3cm Extra SoftPenumbra Smart Coil 2mm x 2cm Extra SoftPenumbra Smart Coil 1.5mm x 3cm Extra SoftPenumbra Smart Coil 1.5mm x 2cm Extra SoftMagnified and standard de-magnified post-treatment angiograms demonstrated excellent ubzbp-[id number] wall apposition. The aneurysm was occluded to near complete obliteration, Jose Luis-Priscilla occlusion class II. There was no evidence of distal thrombo-embolic events.After reviewing the final images, the shuttle sheath was removed from the vertebral artery under fluoroscopic guidance. Right common femoral artery angiogram was obtained and revealed the puncture site and the artery size to be suitable for closure device use. 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 This lesion was treated by stent-assisted coiling with the use of a Supera stent and 6 Penumbra Smart coils. Final post-treatment angiogram demonstrated excellent dsqto-wr-hzugua wall apposition and Jose Luis-Priscilla occlusion scale II.Dr. Kalli Oh dictated this invasive procedure. Dr. Godinez was present for all procedural and imaging components of this case. Examination was reviewed and reported findings confirmed and edited by Dr. Godinez . Dr. Godinez supervised and interpreted this procedure.Final report electronically signed by Brook Godinez M.D. on 10/01/2017 1:52 PMInterpreted by:Delroy Bear MDSigned by:Brook Godinez MD10/01/18Final result Normal [facility] Basic Metabolic Profon 09-27 (cont.) Normal [facility] Comment on above: Result Comment: Aver age GFR for 30-39 years old: 107 mL/min/1.73sq mChronic Kidney Disease: <60 mL/min/1.73sq mKidney failure: <15 mL/min/1.73sq meGFR calculated using average adult body mass. Additional eGFR calculator available at:http://www.LearnSprout/multiple_crcl_2012.htmAd[facility] [address] [place] [address] Performed By: #### C DP, BMP ####[facility] HospitalRevEfsthzmytxjv701[address] [place] [address] Anion gap 3 molar conc 9 mmol/L Normal 9-17 [facility] Comment on above: Performed By: #### C DP, BMP ####[facility] HospitalRevLmhrkbcjdeim99[address] [place] [address] Calcium mass conc 7.9 mg/dL Low 8.6-10.4 [facility] Comment on above: Performed By: #### C DP, BMP ####[facility] HospitalRevJlttswuyuxyx4435[address] [place] [address] Chloride molar conc 105 mmol/L Normal 98-107 [facility] Comment on above: Performed By: #### C DP, BMP ####[facility] HospitalRevRkgnzeilnslj6630[address] [place] [address] CO2 molar conc 23 mmol/L Normal 20-31 [facility] Comment on above: Performed By: #### C DP, BMP ####[facility] HospitalRevQyxchzjpsidq529[address] [place] [address] Creatinine mass conc 0.69 mg/dL Low 0.70-1.20 [facility] Comment on above: Performed By: #### C DP, BMP ####[facility] [place] [address] GFR, Amer >60 Normal >60 [facility] Comment on above: Performed By: #### C DP, BMP ####[facility] [address] [place] [address] GFR,non Amer >60 Normal >60 [facility] Comment on above: Performed By: #### C DP, BMP ####[address] [address] Glucose mass conc 92 mg/dL Normal 70-99 [facility] Comment on above: Performed By: #### C DP, BMP ####[address] [place] [address] Potassium molar conc 3.8 mmol/L Normal 3.7-5.3 [facility] Comment on above: Performed By: #### C DP, BMP ####[address] [place] [address] Sodium molar conc 137 mmol/L Normal 135-144 [facility] Comment on above: Performed By: #### C DP, BMP ####[facility] [address]166 [place] [address] Urea nitrogen mass conc 5 mg/dL Low 6-20 [facility] Comment on above: Performed By: #### C DP, BMP ####[facility] [place] [address] BUN/CRE Ratio NOT REPORTED Normal 9-20 [facility] Comment on above: Performed By: #### C DP, BMP ####[address] [address] Staging: NOT REPORTED Normal [facility] Comment on above: Performed By: #### C DP, BMP ####[address] [address] CBC with Diffon 09-27-2017 Abs. Basophil 0.07 k/uL Normal 0.00-0.20 [facility] Comment on above: Performed By: #### C DP, BMP ####[address] [address] Abs.Imm.Granulocyte <0.03 Normal 0.00-0.30 [facility] Comment on above: Result Comment: [address] [address] Performed By: #### C DP, BMP ####[address] [address] Abs.Neutrophil (Seg) 2.92 k/uL Normal 1.50-8.10 [facility] Comment on above: Performed By: #### C DP, BMP ####[address] [address] Basophils/100 WBC Auto (Bld) 1 % Normal 0-2 [facility] Comment on above: Performed By: #### C DP, BMP ####[address] [address] Eosinophils Auto #/vol (Bld) 0.39 10*3/uL Normal 0.00-0.44 [facility] Comment on above: Performed By: #### C DP, BMP ####[address] [address] Eosinophils/100 WBC Auto (Bld) 7 % High 1-4 [facility] Comment on above: Performed By: #### C DP, BMP ####[address] [address] Erythrocyte distribution width Auto Ratio (RBC) 12.9 % Normal 11.8-14.4 [facility] Comment on above: Performed By: #### C DP, BMP ####[address] [address] Hematocrit Auto Volume Fraction (Bld) 34.2 % Low 40.7-50.3 [facility] Comment on above: Performed By: #### C DP, BMP ####[address] [address] Hemoglobin mass conc (Bld) 11.1 g/dL Low 13.0-17.0 [facility] Comment on above: Performed By: #### C DP, BMP ####[address] [address] Immature granulocytes #/vol (Bld) 0 % Normal 0 [facility] Comment on above: Performed By: #### C DP, BMP ####[address] [address] Lymphocytes Auto #/vol (Bld) 1.86 10*3/uL Normal 1.10-3.70 [facility] Comment on above: Performed By: #### C DP, BMP ####[address] [address] Lymphocytes/100 WBC Auto (Bld) 33 % Normal 24-43 [facility] Comment on above: Performed By: #### C DP, BMP ####[address] [address] MCH Auto Entitic mass (RBC) 32.6 pg Normal 25.2-33.5 [facility] Comment on above: Performed By: #### C DP, BMP ####[address] [address] MCHC Auto mass conc (RBC) 32.5 g/dL Normal 28.4-34.8 [facility] Comment on above: Performed By: #### C DP, BMP ####[address] [address] MCV Auto Entitic volume (RBC) 100.3 fL Normal 82.6-102.9 [facility] Comment on above: Performed By: #### C DP, BMP ####[address] [address] Monocytes Auto #/vol (Bld) 0.45 10*3/uL Normal 0.10-1.20 [facility] Comment on above: Performed By: #### C DP, BMP ####[address] [address] Monocytes/100 WBC Auto (Bld) 8 % Normal 3-12 [facility] Comment on above: Performed By: #### C DP, BMP ####[address] [address] Neutrophil (Seg) 51 % Normal 36-65 [facility] Comment on above: Performed By: #### C DP, BMP ####[address] [address] NRBC Automated 0.0 per 100 WBC Normal 0.0 [facility] Comment on above: Performed By: #### C DP, BMP ####[address] [address] Platelet mean volume Auto Entitic volume (Bld) 12.0 fL Normal 8.1-13.5 [facility] Comment on above: Performed By: #### C DP, BMP ####[address] [address] Platelets Auto #/vol (Bld) 127 10*3/uL Low 138-453 [facility] Comment on above: Performed By: #### C DP, BMP ####[facility] Hospitalmagdiel [address] [address] RBC Auto #/vol (Bld) 3.41 10*6/uL Low 4.21-5.77 [facility] Comment on above: Performed By: #### C DP, BMP ####[facility] Hospitalmagdiel [address] [address] WBC Auto #/vol (Bld) 5.7 10*3/uL Normal 3.5-11.3 [facility] Comment on above: Performed By: #### C DP, BMP ####[address] [address] Auto Diff Performed NOT REPORTED Normal [facility] Comment on above: Performed By: #### C DP, BMP ####[address] [address] Platelets Auto #/vol (Bld) NOT REPORTED Normal [facility] Comment on above: Performed By: #### C DP, BMP ####[address] [address] RBC morphology finding Nom (Bld) NOT REPORTED Normal [facility] Comment on above: Performed By: #### C DP, BMP ####[address] [address] WBC Morphology NOT REPORTED Normal [facility] Comment on above: Performed By: #### C DP, BMP ####[address] [address] Hgb/Hcton 09-27-2017 Hematocrit Auto Volume Fraction (Bld) 35.3 % Low 40.7-50.3 [facility] Comment on above: Result Comment: [facility] [employer] [address] [place] [address] Performed By: #### H H ####[address] [address] Hemoglobin mass conc (Bld) 11.8 g/dL Low 13.0-17.0 [facility] Comment on above: Performed By: #### H H ####[address] [address] MRSA, DNA, Nasalon 8 MRSA, DNA, Nasal NEGATIVE: MRSA DNA n ot detected by nucleic acid amplification. Normal NMRSAA [facility] Comment on above: Result Comment: Resu lts should be used as an adjunct to nosocomial control efforts to identify patients needing enhanced precautions.The test is not intended to identify patients with staphylococcal infections. Results should not be used to guide or monitor treatment for MRSA infections.[address] [address] Performed By: #### M RSANO ####[address] [address] MRSA, DNA, Nasalon 8 Specimen Description .NASAL SWAB Normal [facility] Comment on above: Performed By: #### M RSANO ####[address] [address] Platelet Functionon 09-27-19 18 Collagen/ADP >300 High 67-112 [facility] Comment on above: Result Comment: TEST CONFIRMED Performed By: #### P FA ####[address] [address] Collagen/EPI >300 High 85-172 [facility] Comment on above: Result Comment: TEST CONFIRMED Performed By: #### P FA ####[address] [address] Interpretation Abnormal platelet function. Normal [facility] Comment on above: Result Comment: Comm on pattern seen in von Willebrand disease and congenital platelet defects. Pattern can also be seen in thrombocytopenia (Platelet <150,000/ul), anemia (Hematocrit <35%), renal and cardiovascular disease.Primary hemostasis defect can place a patient at increased risk for bleeding during a surgical procedure. After correlation with clinical history, further evaluation of primary hemostasis could be considered, such as platelet aggregation tests and/or von Willebrand workup.PFA results on patients treated with Plavix (clopidogrel) have not been established.[address] [address] Performed By: #### P FA ####[address] [address] Type + Screenon 09-26-2017 Type + Screen Sample Expiration Arm Band Number BE [id number] ABO/Rh(D) A NEGATIVE Antibody Screen NEGATIVE [address] [address] Normal [facility] Comment on above: Performed By: #### T YS ####[address] [address] APTTon 09-12-2017 aPTT Coag time (Bld) 29.8 s Normal 20.5-30.5 [facility] Comment on above: Result Comment: [address] [address] Performed By: #### C BC, PT, PTT, BMP ####[address] [address] Basic Metabolic Profon 09-12 (cont.) Normal [facility] Comment on above: Result Comment: Aver age GFR for 30-39 years old: 107 mL/min/1.73sq mChronic Kidney Disease: <60 mL/min/1.73sq mKidney failure: <15 mL/min/1.73sq meGFR calculated using average adult body mass. Additional eGFR calculator available at:http://www.CloudPrime.OANDA/multiple_crcl_2012.htm[address] [address] Performed By: #### C BC, PT, PTT, BMP ####[facility] HospitalRevJocjigxymiat8316 [place] [address] Anion gap 3 molar conc 15 mmol/L Normal 9-17 [facility] Comment on above: Performed By: #### C BC, PT, PTT, BMP ####[facility] HospitalSun Number [address] [address] Calcium mass conc 9.1 mg/dL Normal 8.6-10.4 [facility] Comment on above: Performed By: #### C BC, PT, PTT, BMP ####[address] [address] Chloride molar conc 97 mmol/L Low 98-107 [facility] Comment on above: Performed By: #### C BC, PT, PTT, BMP ####[facility] HospitalRevVqyqvtrvkkxl35[address] [place] [address] CO2 molar conc 25 mmol/L Normal 20-31 [facility] Comment on above: Performed By: #### C BC, PT, PTT, BMP ####[facility] HospitalRevFnysvpbyzzcz[address] [place] [address] Creatinine mass conc 0.81 mg/dL Normal 0.70-1.20 [facility] Comment on above: Performed By: #### C BC, PT, PTT, BMP ####[facility] HospitalRevKehatcilveov[address] [place] [address] GFR, Amer >60 Normal >60 [facility] Comment on above: Performed By: #### C BC, PT, PTT, BMP ####[facility] HospitalRevXmybnjglkqcg687[address] [place] [address] GFR,non Amer >60 Normal >60 [facility] Comment on above: Performed By: #### C BC, PT, PTT, BMP ####[facility] HospitalRevSxboarrgrczy[address] [place] [address] Glucose mass conc 93 mg/dL Normal 70-99 [facility] Comment on above: Performed By: #### C BC, PT, PTT, BMP ####[facility] Hospitalmagdiel [address] [place] [address] Potassium molar conc 3.8 mmol/L Normal 3.7-5.3 [facility] Comment on above: Performed By: #### C BC, PT, PTT, BMP ####[facility] Hospitalmagdiel [address] [place] [address] Sodium molar conc 137 mmol/L Normal 135-144 [facility] Comment on above: Performed By: #### C BC, PT, PTT, BMP ####[facility] Hospitalmagdiel [address] [place] [address] Urea nitrogen mass conc 7 mg/dL Normal 6-20 [facility] Comment on above: Performed By: #### C BC, PT, PTT, BMP ####[facility] Hospitalmagdile [address]cr[address] [place] [address] BUN/CRE Ratio NOT REPORTED Normal 9-20 [facility] Comment on above: Performed By: #### C BC, PT, PTT, BMP ####[address] [address] Staging: NOT REPORTED Normal [facility] Comment on above: Performed By: #### C BC, PT, PTT, BMP ####[facility] HospitalRevRljrqgkjtzxw3836[address] [place] [address] CBCon 09-12-2017 Erythrocyte distribution width Auto Ratio (RBC) 12.6 % Normal 11.8-14.4 [facility] Comment on above: Performed By: #### C BC, PT, PTT, BMP ####[address] [address] Hematocrit Auto Volume Fraction (Bld) 43.3 % Normal 40.7-50.3 [facility] Comment on above: Performed By: #### C BC, PT, PTT, BMP ####[address] [address] Hemoglobin mass conc (Bld) 14.6 g/dL Normal 13.0-17.0 [facility] Comment on above: Performed By: #### C BC, PT, PTT, BMP ####[address] [address] MCH Auto Entitic mass (RBC) 32.4 pg Normal 25.2-33.5 [facility] Comment on above: Performed By: #### C BC, PT, PTT, BMP ####[address] [address] MCHC Auto mass conc (RBC) 33.7 g/dL Normal 28.4-34.8 [facility] Comment on above: Performed By: #### C BC, PT, PTT, BMP ####[address] [address] MCV Auto Entitic volume (RBC) 96.2 fL Normal 82.6-102.9 [facility] Comment on above: Performed By: #### C BC, PT, PTT, BMP ####[address] [address] NRBC Automated 0.0 per 100 WBC Normal 0.0 [facility] Comment on above: Result Comment: [id number] [place] [address] Performed By: #### C BC, PT, PTT, BMP ####[address] [address] Platelet mean volume Auto Entitic volume (Bld) 12.3 fL Normal 8.1-13.5 [facility] Comment on above: Performed By: #### C BC, PT, PTT, BMP ####[facility] [address] [address] Platelets Auto #/vol (Bld) 142 10*3/uL Normal 138-453 [facility] Comment on above: Performed By: #### C BC, PT, PTT, BMP ####[address] [address] RBC Auto #/vol (Bld) 4.50 10*6/uL Normal 4.21-5.77 [facility] Comment on above: Performed By: #### C BC, PT, PTT, BMP ####[address] [address] WBC Auto #/vol (Bld) 10.6 10*3/uL Normal 3.5-11.3 [facility] Comment on above: Performed By: #### C BC, PT, PTT, BMP ####[address] [address] PTon 09-12-2017 INR Coag RelTime (PPP) 1.0 {INR} Normal [facility] Comment on above: Result Comment: Ther apeutic Range: Moderate Anticoagulant Intensity: INR = 2.0-3.0 High Anticoagulant Intensity: INR = 2.5-3.[address] [address] Performed By: #### C BC, PT, PTT, BMP ####[address] [address] Prothrombin time (PT) Coag time (PPP) 11.1 s Normal 9.0-12.0 [facility] Comment on above: Performed By: #### C BC, PT, PTT, BMP ####[address] [address] CTA HEAD W CONTRASTon 2017 CTA HEAD W CONTRAST ADDENDUM:3 dimension al images were subsequently provided. No additional acutefindings are present on these imagesADDENDUM:3 dimensional images were subsequently provided. No additional acutefindings are present on these imagesADDENDUM:3 dimensional images were subsequently provided. No additional acutefindings are present on these imagesElectronically Signed by: ELVIS PHIPPS on SunJul 30, 2017 10:46:07 PM EDTEXAMINATION:CTA OF THE NECK; CTA OF THE HEAD WITH CONTRAST 07/14/2017 3:01 pm:TECHNIQUE:CTA of the neck was performed with the administration of intravenouscontrast. Multiplanar reformatted images are provided for review. MIP imagesare provided for review. Stenosis of the internal carotid arteries measuredusing NASCET criteria. Dose modulation, iterative reconstruction, and/orweight based adjustment of the mA/kV was utilized to reduce the radiationdose to as low as reasonably achievable.; CTA of the head/brain was performedwith the administration of intravenous contrast. Multiplanar reformattedimages are provided for review. MIP images are provided for review. Dosemodulation, iterative reconstruction, and/or weight based adjustment of themA/kV was utilized to reduce the radiation dose to as low as reasonablyachievable.COMPARIS ON:None.HISTORY:ORDERING SYSTEM PROVIDED HISTORY: lack of sensation below knees to bilaterallower extremities; ORDERING SYSTEM PROVIDED HISTORY: lack of sensation tobilateral lower extremities below kneesFINDINGS:CTA NECK:Upper chest: Emphysematous changes are noted bilaterally. Apical pleuralthickening is noted bilaterally. No enlarged upper mediastinal nodes arepresentAORTIC ARCH/ARCH VESSELS: Limited evaluation of the aorta and great vesselorigins is unremarkable.CAROTID ARTERIES: Both common carotid arteries are widely patent. Internalcarotid arteries are widely patent as well.VERTEBRAL ARTERIES: Both vertebral arteries are patent. However, at the C6-7junction on the right, there is a focal area of irregularity of the contourof the right vertebral artery. There is a small focus of low densitytraversing a portion of the vessel on axial image 87 86 through 91. There lilibeth lobular posterior extension off the margin of the vessel which is seen beston sagittal reformatted image 40 of series 614. Otherwise, the vertebralarteries in the neck are widely patent. There is no additional irregularity.SOFT TISSUES: No focal soft tissue abnormality is noted.BONES: Degenerative changes are noted throughout the spine. Multilevel discbulging is noted. Canal detail is significantly limited.CTA HEAD:ANTERIOR CIRCULATION: The internal carotid arteries are patent bilaterally.Anterior and middle cerebral arteries are patent as well.POSTERIOR CIRCULATION: Distal vertebral arteries, basilar artery and bothposterior cerebral arteries are widely patent. There is no focal significantnarrowing. There is no aneurysm.BRAIN: Limited evaluation of the brain parenchyma demonstrate no focal acuteabnormality.IMPRESSION: There is irregularity of the contour of the right cervical vertebral arteryat the C6-7 level as noted above. This is likely due to age-indeterminatedissection and pseudoaneurysm.No acute vascular abnormality otherwise noted in the neckNo acute arterial abnormality is noted in the head.Critical results were called by Dr. Elvis Phipps to Dr. Godinez on 07/14/2017 at15:36.Interpreted by:GURINDER Duckworthigned by:Elvis Phipps MD07/30/17Edited Result - FINAL Normal [facility] CTA NECK W CONTRASTon 2017 CTA NECK W CONTRAST ADDENDUM:3 dimension al images were subsequently provided. No additional acutefindings are present on these imagesADDENDUM:3 dimensional images were subsequently provided. No additional acutefindings are present on these imagesADDENDUM:3 dimensional images were subsequently provided. No additional acutefindings are present on these imagesElectronically Signed by: ELVIS PHIPPS on SunJul 30, 2017 10:46:05 PM EDTEXAMINATION:CTA OF THE NECK; CTA OF THE HEAD WITH CONTRAST 07/14/2017 3:01 pm:TECHNIQUE:CTA of the neck was performed with the administration of intravenouscontrast. Multiplanar reformatted images are provided for review. MIP imagesare provided for review. Stenosis of the internal carotid arteries measuredusing NASCET criteria. Dose modulation, iterative reconstruction, and/orweight based adjustment of the mA/kV was utilized to reduce the radiationdose to as low as reasonably achievable.; CTA of the head/brain was performedwith the administration of intravenous contrast. Multiplanar reformattedimages are provided for review. MIP images are provided for review. Dosemodulation, iterative reconstruction, and/or weight based adjustment of themA/kV was utilized to reduce the radiation dose to as low as reasonablyachievable.COMPARIS ON:None.HISTORY:ORDERING SYSTEM PROVIDED HISTORY: lack of sensation below knees to bilaterallower extremities; ORDERING SYSTEM PROVIDED HISTORY: lack of sensation tobilateral lower extremities below kneesFINDINGS:CTA NECK:Upper chest: Emphysematous changes are noted bilaterally. Apical pleuralthickening is noted bilaterally. No enlarged upper mediastinal nodes arepresentAORTIC ARCH/ARCH VESSELS: Limited evaluation of the aorta and great vesselorigins is unremarkable.CAROTID ARTERIES: Both common carotid arteries are widely patent. Internalcarotid arteries are widely patent as well.VERTEBRAL ARTERIES: Both vertebral arteries are patent. However, at the C6-7junction on the right, there is a focal area of irregularity of the contourof the right vertebral artery. There is a small focus of low densitytraversing a portion of the vessel on axial image 87 86 through 91. There lilibeth lobular posterior extension off the margin of the vessel which is seen beston sagittal reformatted image 40 of series 614. Otherwise, the vertebralarteries in the neck are widely patent. There is no additional irregularity.SOFT TISSUES: No focal soft tissue abnormality is noted.BONES: Degenerative changes are noted throughout the spine. Multilevel discbulging is noted. Canal detail is significantly limited.CTA HEAD:ANTERIOR CIRCULATION: The internal carotid arteries are patent bilaterally.Anterior and middle cerebral arteries are patent as well.POSTERIOR CIRCULATION: Distal vertebral arteries, basilar artery and bothposterior cerebral arteries are widely patent. There is no focal significantnarrowing. There is no aneurysm.BRAIN: Limited evaluation of the brain parenchyma demonstrate no focal acuteabnormality.IMPRESSION: There is irregularity of the contour of the right cervical vertebral arteryat the C6-7 level as noted above. This is likely due to age-indeterminatedissection and pseudoaneurysm.No acute vascular abnormality otherwise noted in the neckNo acute arterial abnormality is noted in the head.Critical results were called by Dr. Elvis Phipps to Dr. Godinez on 07/14/2017 at15:36.Interpreted by:GURINDER Duckworthigned by:Elvis Phipps MD/Edited Result - FINAL Normal [facility] IR ANGIOGRAM CAROTID CEREBRA L BILATERALon 07-19-2017 IR ANGIOGRAM CAROTID CEREBRAL BILATERAL Date of Service: 07/15/2017Patient arrived to the angio suite at: 11:22 amAnesthesia/sedation initiated at: 11:24 amPuncture obtained at:11:24 am Vascular access was removed at: 12:07 pmManual pressure for 10-15 min: 12:20Patient out of the room: 12:25 minConscious Sedation: A total of 63 minDiagnosis: Vertebral artery dissection Procedures:1. Selective Bilateral internal carotid artery cerebral angiograms.2. Bilateral cervical carotid artery angiograms.3. Selective bilateral Vertebral Artery Cerebral Angiograms.4. Conscious Sedation: A total of 63 min5. Right common femoral artery angiogram.Neurointerventional ist: Joseph Godinez MD, MSFellows:Lobito Church MD.Contrast: 82 cc of Visipaque-270.Fluoroscopy time: 16.7 minutesAccess: Right common femoral artery.Consent: After explaining the risks and benefits to the patient, including but not limited to stroke, vessel injury, dissection, tear, X-ray dye allergic reaction, an informed consent was obtained.Indication and Clinical History: Baltazar Phipps is a 36 years old male with PMH of recently diagnosed syphilis presented on 07/14/17 with left hemibody weakness. He was not a candidate for t-pa nor thrombectomy. MRI brain ruled out acute stroke. CTA neck showed right VA dissection for which we were consulted for better evaluation with a conventional cerebral angiogram. Anesthesia: Local anesthesia with lidocaine. Sedation with Versed and Fentanyl.Description of Procedure: The patient was brought to the interventional suite and placed in a supine position on the angio table. The right groin region was prepped, draped, and cleaned in a sterile fashion. A total of 5 cc of 1% lidocaine was administered subcutaneously for local anesthesia. The right common femoral artery was accessed by a single wall technique and a 5 Wallisian introducer sheath was placed. A 5 Wallisian Oden catheter was advanced under fluoroscopic guidance into the right vertebral artery and images were obtained in standard biplane projections of the posterior circulation.The right common carotid artery was selectively catheterized, and images were obtained in the anterior-oblique and lateral projections of the cervical carotid arteries. The right internal carotid artery was selectively catheterized under fluoroscopic guidance and images were obtained in anterior and lateral projections of the right intracranial circulation. The left common carotid artery was selectively catheterized, and images were obtained in the anterior-oblique and lateral projections of the cervical carotid arteries. The left internal carotid artery was selectively catheterized, and images were obtained in the anterior, oblique, and lateral projections of the intracranial circulation on the left side. The left vertebral artery was selected under biplane fluoroscopy and images were obtained in standard biplane projections of the posterior circulation.The right common femoral artery was then evaluated via femoral angiogram via the introducer sheath for possible use of closure device. The final images were reviewed, and the introducer sheath was removed. Hemostasis was maintained using 5F Vascade closing device followed by manual pressure for 25 minutes with good results and intact distal pulse. Findings: The right vertebral artery angiogram demonstrated normal antegrade filling of the intracranial vertebral and basilar arteries and their branches. 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 The right common carotid artery injection demonstrated normal carotid bifurcation. The right internal carotid artery injection and the intracranial internal carotid artery images demonstrated normal antegrade filling of the anterior and middle cerebral arteries. The capillary and venous phases were unremarkable. The right external carotid artery circulation is normal. There is no evidence of an AVM.The left common carotid artery injection demonstrated normal carotid bifurcation. The left intracranial internal carotid artery images demonstrated normal antegrade filling of the anterior and middle cerebral arteries. The capillary and venous phases were unremarkable. The left external carotid artery circulation is normal. There is no evidence of an AVM.The left vertebral artery angiogram demonstrated normal antegrade filling of the intracranial vertebral and basilar arteries and their branches. No evidence of vasculitis or vascular malformation. Right common femoral angiogram demonstrated no evidence of intimal dissection at the puncture site. Disposition: The patient was transported to radiology short stay unit in stable clinical and hemodynamic conditions. Complications: None immediate. Impression: 1. 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 2. The remaining studied vessels showed no evidence of vasculitis, occlusion, aneurysm, vascular malformation, arterial dissection, stenosis, or veno-occlusive disease. Dr Church dictated this invasive procedure. Dr Godinez was present for all procedural and imaging components of this case. Examination was reviewed and reported findings confirmed and evaluated by Dr. Godinez. Final report electronically signed by Brook Godinez M.D. on 07/19/2017 12:05 PMInterpreted by:Danyelle Bear MDSigned by:Brook Godinez [id number]//[id number] result Normal [facility] T.Pall confirm,TPPAon 2017 T.Pall confirm,TPPA REACTIVE Abnormal NR [facility] Comment on above: Result Comment: T.pa llidum Ab Screen: POSITIVEVDRL, Quantitative: NEGATIVET.pallidum,TPPA: POSITIVEPossible syphilis (latent) or previously treated syphilis.Persons with a history of previous treatment will require no further management unless reexposure is suspected. In this instance, a repeat VDRL Titer in 2-4 weeks is recommended to evaluate for early infection.Those without a history of treatment for syphilis should be offered treatment. Unless history or physical findings suggest a recent infection, previously untreated persons should be treated for latent syphilis.Results reported to the appropriate Health Department[address] [address] Performed By: #### T REP, HIVCMB, QBVD, TPPA ####[address] [address] VDRL, Quantitativeon 018 VDRL, Quantitative Negative Normal [facility] Comment on above: Result Comment: T.pa llidum Ab Screen: POSITIVEVDRL, Quantitative: NEGATIVETPPA will be performed.[address] [address] Performed By: #### T REP, HIVCMB, QBVD, TPPA ####[address] [address] Basic Metab w/rfx MGon 07-15 (cont.) Normal [facility] Comment on above: Result Comment: Aver age GFR for 30-39 years old: 107 mL/min/1.73sq mChronic Kidney Disease: <60 mL/min/1.73sq mKidney failure: <15 mL/min/1.73sq meGFR calculated using average adult body mass. Additional eGFR calculator available at:[email or web address] [address] Performed By: #### C BC, IPF, BMPX ####[facility] [address] [place] [address] Anion gap 3 molar conc 12 mmol/L Normal 9-17 [facility] Comment on above: Performed By: #### C BC, IPF, BMPX ####[facility] [address] [place] [address] Calcium mass conc 8.7 mg/dL Normal 8.6-10.4 [facility] Comment on above: Performed By: #### C BC, IPF, BMPX ####[facility] [address] [place] [address] Chloride molar conc 100 mmol/L Normal 98-107 [facility] Comment on above: Performed By: #### C BC, IPF, BMPX ####[facility] [address] [place] [address] CO2 molar conc 24 mmol/L Normal 20-31 [facility] Comment on above: Performed By: #### C BC, IPF, BMPX ####[facility] [address] [place] [address] Creatinine mass conc 0.86 mg/dL Normal 0.70-1.20 [facility] Comment on above: Performed By: #### C BC, IPF, BMPX ####[facility] [address] [place] [address] GFR, Amer >60 Normal >60 [facility] Comment on above: Performed By: #### C BC, IPF, BMPX ####[facility] [address] [place] [address] GFR,non Amer >60 Normal >60 [facility] Comment on above: Performed By: #### C BC, IPF, BMPX ####[facility] [address] [place] [address] Glucose mass conc 70 mg/dL Normal 70-99 [facility] Comment on above: Performed By: #### C BC, IPF, BMPX ####[facility] [address] [place] [address] Potassium molar conc 4.6 mmol/L Normal 3.7-5.3 [facility] Comment on above: Performed By: #### C BC, IPF, BMPX ####[facility] [address] [place] [address] Sodium molar conc 136 mmol/L Normal 135-144 [facility] Comment on above: Performed By: #### C BC, IPF, BMPX ####[facility] [address]enhallD[address]muhr[address] [place] [address] Urea nitrogen mass conc 13 mg/dL Normal 6-20 [facility] Comment on above: Performed By: #### C BC, IPF, BMPX ####[facility] [address] [place] [address] BUN/CRE Ratio NOT REPORTED Normal 9-20 [facility] Comment on above: Performed By: #### C BC, IPF, BMPX ####[facility] [address]enhall[address] [place] [address] Staging: NOT REPORTED Normal [facility] Comment on above: Performed By: #### C BC, IPF, BMPX ####[facility] [address] [place] [address] CBCon 07-15-2017 Erythrocyte distribution width Auto Ratio (RBC) 13.2 % Normal 11.8-14.4 [facility] Comment on above: Performed By: #### C BC, IPF, BMPX ####[facility] [address]enhallL[address] [place] [address] Hematocrit Auto Volume Fraction (Bld) 40.2 % Low 40.7-50.3 [facility] Comment on above: Performed By: #### C BC, IPF, BMPX ####[facility] [address] [place] [address] Hemoglobin mass conc (Bld) 13.4 g/dL Normal 13.0-17.0 [facility] Comment on above: Performed By: #### C BC, IPF, BMPX ####[address] [address] MCH Auto Entitic mass (RBC) 32.1 pg Normal 25.2-33.5 [facility] Comment on above: Performed By: #### C BC, IPF, BMPX ####[address] [address] MCHC Auto mass conc (RBC) 33.3 g/dL Normal 28.4-34.8 [facility] Comment on above: Performed By: #### C BC, IPF, BMPX ####[address] [address] MCV Auto Entitic volume (RBC) 96.4 fL Normal 82.6-102.9 [facility] Comment on above: Performed By: #### C BC, IPF, BMPX ####[facility] [place] [address] NRBC Automated 0.0 per 100 WBC Normal 0.0 [facility] Comment on above: Result Comment: [facility] [address] [place] [address] Performed By: #### C BC, IPF, BMPX ####[facility] [place] [address] Platelets Auto #/vol (Bld) See Reflexed IPF Result Normal 138-453 [facility] Comment on above: Performed By: #### C BC, IPF, BMPX ####[facility] [place] [address] RBC Auto #/vol (Bld) 4.17 10*6/uL Low 4.21-5.77 [facility] Comment on above: Performed By: #### C BC, IPF, BMPX ####[address] [address] WBC Auto #/vol (Bld) 5.0 10*3/uL Normal 3.5-11.3 [facility] Comment on above: Performed By: #### C BC, IPF, BMPX ####[facility] [address] [place] [address] Platelet mean volume Auto Entitic volume (Bld) NOT REPORTED Normal 8.1-13.5 [facility] Comment on above: Performed By: #### C BC, IPF, BMPX ####[address] [address] PLT, Immature Fract.on 07-15 Platelet, Fluoresc. 138 k/uL Normal 138-453 [facility] Comment on above: Result Comment: ORDE RED BY [employer] [facility] [place] [address] Performed By: #### C BC, IPF, BMPX ####[address] [address] PLT, Immature Fract. 9.1 % Normal 1.1-10.3 [facility] Comment on above: Result Comment: ORDE RED BY LAB Performed By: #### C BC, IPF, BMPX ####[address] [address] [address] HEAD WO CONTRASTon 2017 CT HEAD WO CONTRAST EXAMINATION:CT OF TH E HEAD WITHOUT CONTRAST 07/14/2017 2:52 pmTECHNIQUE:CT of the head was performed without the administration of intravenouscontrast. Dose modulation, iterative reconstruction, and/or weight basedadjustment of the mA/kV was utilized to reduce the radiation dose to as lowas reasonably achievable.COMPARISON:None.HI STORY:ORDERING SYSTEM PROVIDED HISTORY: lack of sensation to bilateral lowerextremitiesFINDINGS:BRAI N/VENTRICLES: Ventricles are midline and normal in caliber. Sulci are atthe upper limits of normal. There is no focus of abnormal density. Nomidline shift, hemorrhage or extra-axial collection is noted.ORBITS: The visualized portion of the orbits demonstrate no acute abnormality.SINUSES: The visualized paranasal sinuses and mastoid air cells demonstrateno acute abnormality.SOFT TISSUES/SKULL: No acute abnormality of the visualized skull or softtissues.IMPRESSION: No acute intracranial abnormality.Critical results were called by Dr. Elvis Phipps to Dr. Godinez on 07/14/2017 at15:18.Interpreted by:GURINDER Duckworthigned by:Elvis Phipps MD07/14/17inal result Normal [facility] HIV Ag/Abon 07-14-2017 HIV Ag/Ab NONREACTIVE Normal NR [facility] Comment on above: Result Comment: No l aboratory evidence of HIV infection. If acute HIV infection is suspected, consider testing for HIV-1 RNA.[facility] [address] [place] [address] [phone] ([phone] Performed By: #### T REP, HIVCMB, QBVD, TPPA ####[facility] [place] [address] MRI BRAIN WO CONTRASTon - MRI BRAIN WO CONTRAST EXAMINATION:MRI OF THE BRAIN WITHOUT CONTRAST 07/14/2017 4:19 pmTECHNIQUE:Multiplanar multisequence MRI of the brain was performed without theadministration of intravenous contrast.COMPARISON:None.HIST ORY:ORDERING SYSTEM PROVIDED HISTORY: left frontal migraine; limited strokeprotocolFINDINGS:INTRAC RANIAL STRUCTURES/VENTRICLES: Ventricles are midline. Ventricles andsulci are at the upper limits of normal for the patient's age. There is nofocal area of increased T2 or FLAIR signal. There is increased signal in thetransverse sinuses, likely artifactual. Recent CT angiogram demonstratesbilateral transverse sinus opacification. There is no restricted diffusionsignal. There is no hemorrhage.ORBITS: The visualized portion of the orbits demonstrate no acute abnormality.SINUSES: The visualized paranasal sinuses and mastoid air cells are wellaerated.BONES/SOFT TISSUES: The bone marrow signal intensity appears normal. The softtissues demonstrate no acute abnormality.IMPRESSION: No acute intracranial abnormality.Interpreted by:GURINDER Duckworthigned by:Elvis Phipps MD07/14/17inal result Normal [facility] MRI CERVICAL SPINE WO CONTRA STon 07-14-2017 MRI CERVICAL SPINE WO CONTRAST EXAMINATION:MRI OF THE CERVICAL SPINE WITHOUT CONTRAST 07/14/2017 8:23 pmTECHNIQUE:Multiplanar multisequence MRI of the cervical spine was performed without theadministration of intravenous contrast.COMPARISON:None.HIST ORY:ORDERING SYSTEM PROVIDED HISTORY: MYELOPATHY, SUDDEN ONSETInitial encounter. Acute illness.FINDINGS:BONES/ALIGNM ENT: There is normal alignment of the spine. The vertebral bodyheights are maintained. No marrow edema or suspect osseous lesion is seen.Mild edematous degenerative changes are present at C6-7.SPINAL CORD: The visualized spinal cord has normal signal and morphology. Noevidence of mass or abnormal fluid collection within the spinal canal.SOFT TISSUES: Paraspinal soft tissues are unremarkable.C2-C3: Disc height and signal maintained. No neural foraminal narrowing orspinal canal stenosis.C3-C4: Disc height and signal maintained. No neural foraminal narrowing orspinal canal stenosis.C4-C5: Disc height and signal maintained. No neural foraminal narrowing orspinal canal stenosis.C5-C6: Disc height and signal maintained. No neural foraminal narrowing orspinal canal stenosis.C6-C7: Mild disc height loss and desiccation. Mild left neural foraminalnarrowing and mild spinal canal stenosis secondary to left eccentricposterior disc osteophyte complex. No right neural foraminal narrowing.C7-T1: Disc height and signal maintained. No neural foraminal narrowing orspinal canal stenosis.IMPRESSION: 1. No acute abnormality of the cervical spine.2. Posterior disc osteophyte complex at C6-7 causes mild spinal canalstenosis and mild left C7 neural foraminal narrowing.Interpreted by:GURINDER Fernándezigned by:Jacob Locke MD07/14/17inal result Normal [facility] MRI LUMBAR SPINE WO CONTRAST on 07-14-2017 MRI LUMBAR SPINE WO CONTRAST EXAMINATION:MRI OF THE LUMBAR SPINE WITHOUT CONTRAST, 07/14/2017 8:23 pmTECHNIQUE:Multiplanar multisequence MRI of the lumbar spine was performed without theadministration of intravenous contrast.COMPARISON:None.HIST ORY:ORDERING SYSTEM PROVIDED HISTORY: MYELOPATHY, SUDDEN ONSETInitial encounter. Acute illness.FINDINGS:BONES/ALIGNM ENT: Vertebral body heights are maintained. Alignment is normal.Next fatty and edematous degenerative plate changes are present at L5-S1.Marrow signal is otherwise within normal limits.SPINAL CORD: The conus terminates normally at the upper L1 level. Thevisualized spinal cord has normal signal and morphology. No evidence of massor abnormal fluid collection within the spinal canal.SOFT TISSUES: Paraspinal soft tissues are unremarkable.L1-L2: Disc height and signal maintained. No neural foraminal narrowing orspinal canal stenosis.L2-L3: Disc height and signal maintained. No neural foraminal narrowing orspinal canal stenosis.L3-L4: Disc height and signal maintained. No neural foraminal narrowing orspinal canal stenosis.L4-L5: Disc desiccation without height loss. No neural foraminal narrowing.Mild spinal canal stenosis and severe left lateral recess narrowing secondaryto a left eccentric broad-based posterior disc protrusion with annularfissuring that compresses the traversing left S1 nerve root.L5-S1: Disc desiccation without height loss. No neural foraminal narrowing.Posterior annular fissuring without protrusion or extrusion.IMPRESSION: 1. Mild L4-5 and L5-S1 degenerative disc disease.2. Left posterior L4-5 disc protrusion with annular fissuring causes mildspinal canal stenosis and severe left lateral recess narrowing compressingthe traversing left L5 nerve root.3. Posterior L5-S1 annular fissuring without protrusion or extrusion.4. No neural foraminal narrowing.Interpreted by:GURINDER Fernándezigned by:Jacob Locke MD07/14/inal result Normal [facility] MRI THORACIC SPINE WO CONTRA STon 07-14-2017 MRI THORACIC SPINE WO CONTRAST EXAMINATION:MRI OF THE THORACIC SPINE WITHOUT CONTRAST 07/14/2017 8:23 pmTECHNIQUE:Multiplanar multisequence MRI of the thoracic spine was performed without theadministration of intravenous contrast.COMPARISON:None.HIST ORY:ORDERING SYSTEM PROVIDED HISTORY: MYELOPATHY, SUDDEN ONSETInitial encounter. Acute illness.FINDINGS:BONES/ALIGNM ENT: Vertebral body heights are maintained alignment is normal.There is a tiny characteristic benign hemangioma in the T2 vertebral body.Marrow signal is otherwise within normal limits for age.SPINAL CORD: The visualized spinal cord has normal signal and morphology. Noevidence of mass or abnormal fluid collection within the spinal canal.SOFT TISSUES: Paraspinal soft tissues are unremarkable.DEGENERATIVE CHANGES: No significant spinal canal stenosis or neuralforaminal narrowing of the thoracic spine.IMPRESSION: Normal MRI of the thoracic spine without contrast.Interpreted by:GURINDER Fernándezigned by:Jacob Locke MD07/14/17inal result Normal [facility] Stroke Panelon 07-14-2017 % CKMB 1.5 % Normal 0.0-3.5 [facility] Comment on above: Performed By: #### S TROKE ####[facility] [address] [place] [address] Anion gap 3 molar conc 20 mmol/L High 9-17 [facility] Comment on above: Performed By: #### S TROKE ####[facility] [address] [place] [address] Calcium mass conc 8.9 mg/dL Normal 8.6-10.4 [facility] Comment on above: Performed By: #### S TROKE ####[facility] [address] [place] [address] Chloride molar conc 95 mmol/L Low 98-107 [facility] Comment on above: Performed By: #### S TROKE ####[employer] [place] [address] CK enzyme act/vol 106 U/L Normal 39-308 [facility] Comment on above: Performed By: #### S TROKE ####[facility] [address] [place] [address] CK.MB mass conc NORMAL ISOENZYME PATTERN Normal [facility] Comment on above: Result Comment: [employer] [address] [place] [address] Performed By: #### S TROKE ####[facility] [place] [address] CO2 molar conc 20 mmol/L Normal 20-31 [facility] Comment on above: Performed By: #### S TROKE ####[facility] [place] [address] Creatinine mass conc 0.73 mg/dL Normal 0.70-1.20 [facility] Comment on above: Performed By: #### S TROKE ####[facility] [place] [address] GFR, Amer >60 Normal >60 [facility] Comment on above: Performed By: #### S TROKE ####[address] [address] GFR,non Amer >60 Normal >60 [facility] Comment on above: Performed By: #### S TROKE ####[facility] [place] [address] Glucose mass conc 83 mg/dL Normal 70-99 [facility] Comment on above: Performed By: #### S TROKE ####[facility] [place] [address] Potassium molar conc 4.2 mmol/L Normal 3.7-5.3 [facility] Comment on above: Performed By: #### S TROKE ####[facility] [place] [address] Sodium molar conc 135 mmol/L Normal 135-144 [facility] Comment on above: Performed By: #### S TROKE ####[facility] [address] [place] [address] Urea nitrogen mass conc 10 mg/dL Normal 6-20 [facility] Comment on above: Performed By: #### S MERVAT ####[facility] [address] [place] [address] (cont.) Normal [facility] Comment on above: Result Comment: Aver age GFR for 30-39 years old: 107 mL/min/1.73sq mChronic Kidney Disease: <60 mL/min/1.73sq mKidney failure: <15 mL/min/1.73sq meGFR calculated using average adult body mass. Additional eGFR calculator available at:http://www.LearnSprout/multiple_crcl_2012.htm Performed By: #### S MERVAT ####[facility] [place] [address] CK-MB,Quantitative 1.6 ng/mL Normal <10.5 [facility] Comment on above: Performed By: #### S MERVAT ####[facility] [address] [place] [address] Myoglobin mass conc ng/mL Low 28-72 [facility] Comment on above: Performed By: #### S MERVAT ####[facility] [address] [place] [address] Troponin I.cardiac mass conc Normal [facility] Comment on above: Result Comment: Refe rence Range: <0.03 Within reference range. 0.03-0.09 Possible myocardial damage.Repeat at appropriate intervals to rule out chronic elevation. >= 0.10 Indicative of myocardial damage.Patients with high levels of Biotin oral intake (i.e >5mg/day) may have falsely decreased Troponin T levels. Samples collected within 8 hours of biotin intake may require additional information for diagnosis. Performed By: #### S MERVAT ####[facility] [address] [place], [place] [id number] Troponin T.cardiac mass conc ug/L Normal <0.03 [facility] Comment on above: Result Comment: Trop onin T results cannot be compared to Troponin-I results. Performed By: #### S MERVAT ####[facility] [address] [place] [address] aPTT Coag time (Bld) 26.6 s Normal 20.5-30.5 [facility] Comment on above: Result Comment: NOTE : NEW REFERENCE RANGE Performed By: #### S MERVAT ####[facility] [address] [place] [address] INR Coag RelTime (PPP) 1.0 {INR} Normal [facility] Comment on above: Result Comment: Ther apeutic Range: Moderate Anticoagulant Intensity: INR = 2.0-3.0 High Anticoagulant Intensity: INR = 2.5-3.5 Performed By: #### S MERVAT ####[address] [address] Prothrombin time (PT) Coag time (PPP) 10.6 s Normal 9.0-12.0 [facility] Comment on above: Result Comment: NOTE : NEW REFERENCE RANGE Performed By: #### S MERVAT ####[address] [address] Abs. Basophil 0.10 k/uL Normal 0.00-0.20 [facility] Comment on above: Performed By: #### S MERVAT ####[facility] [address] [address] Abs.Imm.Granulocyte 0.04 k/uL Normal 0.00-0.30 [facility] Comment on above: Performed By: #### S MERVAT ####[facility] [address] [place] [address] Abs.Neutrophil (Seg) 5.69 k/uL Normal 1.50-8.10 [facility] Comment on above: Performed By: #### S MERVAT ####[facility] [address] [place] [address] Basophils/100 WBC Auto (Bld) 1 % Normal 0-2 [facility] Comment on above: Performed By: #### S MERVAT ####[address] [address] Eosinophils Auto #/vol (Bld) 0.10 10*3/uL Normal 0.00-0.44 [facility] Comment on above: Performed By: #### S MERVAT ####[address] [address] Eosinophils/100 WBC Auto (Bld) 1 % Normal 1-4 [facility] Comment on above: Performed By: #### S MERVAT ####[address] [address] Erythrocyte distribution width Auto Ratio (RBC) 13.2 % Normal 11.8-14.4 [facility] Comment on above: Performed By: #### S MERVAT ####[address] [address] Hematocrit Auto Volume Fraction (Bld) 47.9 % Normal 40.7-50.3 [facility] Comment on above: Performed By: #### S MERVAT ####[address] [address] Hemoglobin mass conc (Bld) 16.2 g/dL Normal 13.0-17.0 [facility] Comment on above: Performed By: #### S MERVAT ####[address] [address] Immature granulocytes #/vol (Bld) 0 % Normal 0 [facility] Comment on above: Performed By: #### S NEGROKE ####[address] [address] Lymphocytes Auto #/vol (Bld) 3.28 10*3/uL Normal 1.10-3.70 [facility] Comment on above: Performed By: #### S MERVAT ####[address] [address] Lymphocytes/100 WBC Auto (Bld) 32 % Normal 24-43 [facility] Comment on above: Performed By: #### S MERVAT ####[address] [address] MCH Auto Entitic mass (RBC) 32.5 pg Normal 25.2-33.5 [facility] Comment on above: Performed By: #### S MERVAT ####[address] [address] MCHC Auto mass conc (RBC) 33.8 g/dL Normal 28.4-34.8 [facility] Comment on above: Performed By: #### S MERVAT ####[address] [address] MCV Auto Entitic volume (RBC) 96.2 fL Normal 82.6-102.9 [facility] Comment on above: Performed By: #### S MERVAT ####[address] [address] Monocytes Auto #/vol (Bld) 1.00 10*3/uL Normal 0.10-1.20 [facility] Comment on above: Performed By: #### S MERVAT ####[address] [address] Monocytes/100 WBC Auto (Bld) 10 % Normal 3-12 [facility] Comment on above: Performed By: #### S MERVAT ####[address] [address] Neutrophil (Seg) 56 % Normal 36-65 [facility] Comment on above: Performed By: #### S MERVAT ####[address] [place] [address] NRBC Automated 0.0 per 100 WBC Normal 0.0 [facility] Comment on above: Performed By: #### S MERVAT ####[address] [address] Platelet mean volume Auto Entitic volume (Bld) 12.0 fL Normal 8.1-13.5 [facility] Comment on above: Performed By: #### S MERVAT ####[address] [address] Platelets Auto #/vol (Bld) 177 10*3/uL Normal 138-453 [facility] Comment on above: Performed By: #### S MERVAT ####[address] [address] RBC Auto #/vol (Bld) 4.98 10*6/uL Normal 4.21-5.77 [facility] Comment on above: Performed By: #### S MERVAT ####[address] [address] WBC Auto #/vol (Bld) 10.2 10*3/uL Normal 3.5-11.3 [facility] Comment on above: Performed By: #### Vini CROWELL ####[address] [address] Auto Diff Performed NOT REPORTED Normal [facility] Comment on above: Performed By: #### S MERVAT ####[address] [address] BUN/CRE Ratio NOT REPORTED Normal 9-20 [facility] Comment on above: Performed By: #### S MERVAT ####[address] [address] Platelets Auto #/vol (Bld) NOT REPORTED Normal [facility] Comment on above: Performed By: #### S TROKE ####[address] [address] RBC morphology finding Nom (Bld) NOT REPORTED Normal [facility] Comment on above: Performed By: #### S TROKE ####[address] [address] Staging: NOT REPORTED Normal [facility] Comment on above: Performed By: #### S TROKE ####[address] [address] WBC Morphology NOT REPORTED Normal [facility] Comment on above: Performed By: #### S TROKE ####[address] [address] T.pallidum Ab Screenon 07-14 T.pallidum Ab Screen REACTIVE Abnormal NR [facility] Comment on above: Result Comment: Dete ction of T. pallidum antibodies may indicate recent, remote or previously treated infections. A positive serological test for syphilis is not diagnostic of infection, as false positives occur and become more likely in low prevalence populations.Confirmatory test will be performed (VDRL, Quantitative).Results reported to the appropriate Health Department[address] [address] Performed By: #### T REP, HIVCMB, QBVD, TPPA ####[address] [address] Vital Signs Date Time Vital Sign Value Performing Clinician Facility 10-23-2023 12:47-0400 Diastolic blood pressure 82 mm[Hg] Neil Smithe [facility] 10-23-2023 12:47-0400 Heart rate 90 /min Neil Ventura [facility] 10-23-2023 12:47-0400 Mean blood pressure 90 mm[Hg] Neil Smithe [facility] 10-23-2023 12:47-0400 Respiratory rate 16 /min Neil Smit[facility] 10-23-2023 12:47-0400 SaO2% (BldA) [Mass fraction] 97 % Neil Smithe [facility] 10-23-2023 12:47-0400 Systolic blood pressure 106 mm[Hg] Neil Smithe [facility] 10-23-2023 12:00-0400 Diastolic blood pressure 88 mm[Hg] Neil Smithe [facility] 10-23-2023 12:00-0400 Heart rate 81 /min Neil Smithe [facility] 10-23-2023 12:00-0400 Mean blood pressure 98 mm[Hg] Neil Smithe [facility] 10-23-2023 12:00-0400 Respiratory rate 11 /min Neil Smit[facility] 10-23-2023 12:00-0400 SaO2% (BldA) [Mass fraction] 100 % Neil Smithe [facility] 10-23-2023 12:00-0400 Systolic blood pressure 119 mm[Hg] Neil Smithe [facility] 10-23-2023 11:20-0400 Heart rate 99 /min Neil Smit[facility] 10-23-2023 11:20-0400 Respiratory rate 28 /min Neil Smit[facility] 10-23-2023 11:20-0400 SaO2% (BldA) [Mass fraction] 96 % Neil Smit[facility] 10-23-2023 11:00-0400 Diastolic blood pressure 87 mm[Hg] Neil Ventura [facility] 10-23-2023 11:00-0400 Mean blood pressure 99 mm[Hg] Neil Ventura [facility] 10-23-2023 11:00-0400 Systolic blood pressure 122 mm[Hg] Neil Ventura [facility] 10-23-2023 09:22-0400 gluc 100 mg/dL Neil Ventura [facility] Comment on above: Result Comment: n/a 10-23-2023 09:22-[address] [facility] 10-23-2023 08:55-0400 Body temperature 98.06 [degF] Neil Ventura [facility] 10-23-2023 08:55-0400 Heart rate 87 /min Neil Ventura [facility] 10-23-2023 08:55-0400 Respiratory rate 16 /min Neil [facility] 10-05-2023 07:30-0400 Body temperature 97.4 [degF] DO Ramu Peña Work Phone: [facility] 10-05-2023 07:30-0400 Diastolic blood pressure 81 mm[Hg] DO Ramu Peña Work Phone: [facility] 10-05-2023 07:30-0400 Heart rate 77 /min DO Ramu Peña Work Phone: [facility] 10-05-2023 07:30-0400 Respiratory rate 16 /min DO Ramu Peña Work Phone: [facility] 10-05-2023 07:30-0400 SaO2% (BldA) [Mass fraction] 95 % DO Ramu Saavedraer Work Phone: [facility] 10-05-2023 07:30-0400 Systolic blood pressure 113 mm[Hg] DO Ramu Celesteterer Work Phone: [facility] 10-02-2023 15:14-0400 Body height 177.8 cm DO Ramu Alonsoterer Work Phone: [facility] 10-01-2023 16:47-0400 Diastolic blood pressure 67 mm[Hg] DO Ramu Alonsoterer Work Phone: [facility] 10-01-2023 16:47-0400 Heart rate 80 /min DO Ramu Alonsoterer Work Phone: [facility] 10-01-2023 16:47-0400 Respiratory rate 16 /min DO Ramu Saavedraer Work Phone: [facility] 10-01-2023 16:47-0400 SaO2% (BldA) [Mass fraction] 95 % DO Ramu Alonsoterer Work Phone: [facility] 10-01-2023 16:47-0400 Systolic blood pressure 105 mm[Hg] DO Ramu Alonsoterer Work Phone: [facility] 10-01-2023 09:39-0400 Body temperature 97.8 [degF] DO Ramu Alonsoterer Work Phone: [facility] 10-01-2023 09:38-0400 Body height 177.8 cm DO Ramu Saavedraer Work Phone: [facility] 10-01-2023 09:38-0400 Body weight 66.6 kg DO Ramu Alonsoterer Work Phone: [facility] Encounters Encounter Date Encounter Type Care Provider Facility Start: 10-23-2023 End: 10-23-2023 Emergency department patient visit Neil Ventura [facility] Start: 10-05-2023 ambulatory Lm Cobb acility:[facility] Start: 10-02-2023 Non-patient / Non-visit DO Oscar Peña Work Phone: [facility] Work Phone: Start: 10-01-2023 End: 10-05-2023 Evaluation and management of inpatient DO Ramu Peña Work Phone: [facility] Work Phone: Start: 09-25-2023 Registered Recurring DO Willie Peña Work Phone: [facility] Start: 06-13-2023 End: 06-15-2023 Emergency department patient visit DAVE LARA [facility] Start: 06-11-2023 End: 06-11-2023 ambulatory Darrell Mummert DO Facility: [facility] Start: 03-14-2023 End: 03-14-2023 ambulatory Darrell Mummert DO Facility: [facility] Start: 01-16-2023 End: 01-16-2023 ambulatory Darrell Mummert DO Facility: [facility] Start: 09-12-[address] DOCTOR MCKENZIE Facility :[facility] Start: 05-09-2022 End: 05-09-2022 Patient encounter procedure AURA COLMENARES [facility] Start: 04-17-2022 End: 04-17-2022 ambulatory ADITYA GONGORA . Facility:[facility] Start: 04-12-2022 End: 04-13-2022 ambulatory JESSICA MENA Facility:[facility] Start: 03-14-2022 End: 03-14-2022 Off-Site AURA COLMENARES [facility] Start: 03-03-2022 End: 03-03-[address] DOCTOR MCKENZIE Facility:[facility] Start: 12-02-2021 End: 12-03-[address] SAMUEL MOORE . Facility:[facility] Start: 10-04-2021 End: 10-04-2021 ambulatory Wanda Saleem Facility:[facility] Start: 09-23-2021 End: 09-24-[address] SAMUEL MOORE . Facility:[facility] Start: 03-23-2018 End: 03-25-2018 Patient encounter procedure [facility] Start: 03-21-2018 End: 03-21-2018 Emergency department patient visit [facility] Start: 01-24-2018 End: 01-24-2018 Emergency department patient visit [facility] Start: 12-04-2017 End: 12-05-2017 Patient encounter procedure [facility] Start: 09-26-2017 End: 09-27-2017 Evaluation and management of inpatient OSAMA O ARCENIOT [facility] Start: 09-12-2017 Encounter for other preprocedural examination [facility] Start: 09-12-2017 End: 09-17-2017 Patient encounter procedure [facility] Start: 07-14-2017 End: 07-15-2017 Evaluation and management of inpatient [facility] Encounter for other preprocedural examination [facility] Procedures Date Procedure Procedure Detail Performing Clinician Start: 03-25-2018 Electroencephalogram ANNETTE HENNESSY Start: 03-25-2018 LAB SCANNED REPORT ANNETTE JOSE LUISMAE Start: 03-25-2018 RHYTHM STRIP REPORT ANNETTE JOSE LUISMAE Start: 03-25-2018 DISCHARGE PATIENT ANNETTE ZAMANMARYLUMAE Start: 03-25-2018 IP CONSULT TO SOCIAL WORK ANNETTE WALL Start: 03-24-2018 URINE DRUG SCREEN ANNETTE JOSE LUISMAE Start: 03-24-2018 Mri brain brain stem w/o contrast material ANNETTE JOSE LUISMAE Start: 03-24-2018 Icar catheter ablation atrioventr node function ANNETTE HENNESSY Start: 03-24-2018 IP CONSULT TO NEUROLOGY ANNETTE HENNESSY Start: 03-24-2018 DIET GENERAL ANNETTE HENNESSY Start: 03-24-2018 ORTHOSTATIC BLOOD PRESSURE AND PULSE ANNETTE HENNESSY Start: 03-24-2018 IP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 with Sandy Conrad. Therapy: Sunday10/26/23 at 9:00am with Prashanth. ) Darrell Irvin, [Primary Care Provider] - (Contact your PCP with medical needs. ) Exam Physical Exam Vital Signs: Temp Pulse Resp BP Pulse Ox O2 Del Method 97.4 F L 77 16 113/81 95 Room Air 10/05/23 07:30 10/05/23 07:30 10/05/23 07:30 10/05/23 07:30 10/05/23 07:30 10/05/23 07:30 Documented By: Chris Mcgregor MD 10/05/23 1219 Signed By: <Electronically signed by Chris Mcgregor MD> 10/05/23 122 [facility] Work Phone: 1(349) 884-893305-30-2024 Progress note Author Chris Mcgregor [facility] October 04, 2023 12:09pm Note Date/Time October 04, 2023 12:09 pm [facility] [address] [place] [address] Psychiatry Progress Note Signed Patient: Baltazar Phipps MR#: [id number] : 1980 Acct:[id number] Age/Sex: 42 / M Adm Date: 4 Loc: Room: [address] [place] [address] Type : ADM IN Attending Dr: Chris Mcgregor MD Copies to: ~ Date of Service: 10/04/2023 Subjective Subjective Narrative: Mr. Phipps reported that he is feeling better. He still anxious about things related to his vehicle. He has spoken to his mom and they have not found the vehicle. He slept okay overnight and tolerated the increased dose of mirtazapine. Mental Status Exam: Appearance: grossly normal Mental Status: mental status grossly normal Mood: Improving mood Affect: Improving affect Speech and Movement: speech normal, movement normal Attitude: cooperative Thought Process: normal Thought Content: Denied hallucinations, no homicidality, no suicidality Insight: fair Judgment: fair Exam Physical Exam Vital Signs: Temp Pulse Resp BP Pulse Ox O2 Del Method 98.0 F 74 19 120/82 99 Room Air 10/04/23 07:30 10/04/23 07:30 10/04/23 07:30 10/04/23 07:30 10/04/23 07:30 10/04/23 08:34 Assessment/Plan Assessment/Plan (1) MDD (major depressive disorder), recurrent episode, moderate: (2) Alcohol use disorder: Plan Showing improvement, anticipate discharge tomorrow Continue BuSpar 20 mg 3 times a day and mirtazapine 45 mg at bedtime Continue to monitor mental status Encourage group participation and medication compliance Risk benefits alternatives explained Documented By: Chris Mcgregor MD 10/04/23 1201 Signed By: <Electronically signed by Chris Mcgregor MD> 10/04/23 1202 [facility] Work Phone: 1(456) 985-132305-29-2024 Progress note Author Chris Mcgregor [facility] October 03, 2023 1:04pm Note Date/Time October 03, 2023 1:04p m [facility] [address] [place] [address] Psychiatry Progress Note Signed Patient: Baltazar Phipps MR#: [id number] : 1980 Acct:[id number] Age/Sex: 42 / M Adm Date: 4 Loc: Room: [address] [place] [address] Type : ADM IN Attending Dr: Chris Mcgregor MD Copies to: ~ Date of Service: 10/03/2023 Subjective Subjective Narrative: Mr. Phipps reported that he is feeling better. He reported that he still having some weird dreams which has been causing some anxiety and depression. He tolerated his medications but does report that he still has some periods where he feels anxious and the depression comes back. Mental Status Exam: Appearance: grossly normal Mental Status: mental status grossly normal Mood: Improving mood Affect: Improving affect Speech and Movement: speech normal, movement normal Attitude: cooperative Thought Process: normal Thought Content: Denied hallucinations, no homicidality, improving suicidality Insight: fair Judgment: fair Exam Physical Exam Vital Signs: Temp Pulse Resp BP Pulse Ox O2 Del Method 97.5 F L 72 16 138/99 100 Room Air 10/03/23 08:00 10/03/23 08:00 10/02/23 20:00 10/03/23 08:00 10/03/23 08:00 10/03/23 08:00 Assessment/Plan Assessment/Plan (1) MDD (major depressive disorder), recurrent episode, moderate: (2) Alcohol use disorder: Plan Continue BuSpar 20 mg 3 times a day and increase mirtazapine 45 mg at bedtime Continue to monitor mental status Encourage group participation and medication compliance Risk benefits alternatives explained Documented By: Chris Mcgregor MD 10/03/23 1303 Signed By: <Electronically signed by Chris Mcgregor MD> 10/03/23 1304 [facility] Work Phone: 1(192) 359-600405-28-2024 History and physical note Author Chris Mcgregor [facility] October 02, 2023 1:03pm Note Date/Time October 02, 2023 1:03p m [facility] [address] [place] [address] Psychiatry H&P Signed Patient: Baltazar Phipps MR#: [id number] : 1980 Acct:[id number] Age/Sex: 42 / M Adm Date: 4 Loc: Room: [address] [place] [address] Type: ADM IN Attending Dr: Chris Mcgregor MD Copies to: MD Darrell Andrews,~ Date of Service: 10/02/2023 HPI History of Present Illness History of present illness: Mr. Phipps is a 42 year old male who presented due to concern for depression and suicidal ideation to cut his wrist. Patient's alcohol level was 0.275 in the ER Upon assessment, patient reported that he was having some conflict with an ex-boyfriend. He reported that the ex-boyfriend took his mom's car and did not return it. He stated that he felt alone at home and was having suicidal thoughts so he called for help. He stated that he was very overwhelmed with what was going on and how he is feeling. He stated that the feelings are prettyintense. He does report that these feelings are improved now. He currently takes medications at home and stated that he is compliant with them. 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 Review of symptoms: Constitutional: Denies chills and Denies fever(s) Eyes: Denies change in vision ENT: Denies abnormal hearing Cardiovascular: Denies chest pain Respiratory: Denies chest congestion and Denies cough Gastrointestinal: Denies change in bowel habits Genitourinary: Denies dysuria Musculoskeletal: Denies atrophy and Denies myalgias Integumentary/Breasts: Denies dry skin Neurologic: Denies abnormal gait and Denies abnormal movements Psychiatric: Reports depression and suicidal ideation, but improved Physical exam: Const: cooperative Nutritional Appearance: average body habitus Orientation: alert, awake and oriented x3 HEENT: Head normal to inspection, hearing grossly normal bilaterally, external nose normal, face symmetric Eyes: appearance normal, both eyes and all related structures, sclerae normal Neck: normal visual inspection and full ROM Resp: normal respiratory effort, able to speak in complete sentences and symmetric chest movement Cardio: regular rate GI: normal to inspection and non-distended : deferred Skin: no rashes or lesions noted Neuro: CNI: Normal olfaction CNI: normal olfaction CNII: Visual maravilla intact, CNIII,IV,: EOM intact, no nystagmus. Pupils equal, round, reactive to light and accommodation, CNV: Sensation intact to light touch, CNVII: Raises eyebrows, smile/frown, puff out cheeks symmetrically, CNVIII: Hearing intact bilaterally, CNIX,X: Voice normal, soft palate elevation normal, symmetrical, CNXI: Shoulder shrug strong, equal bilaterally, CNXII: Tongue protrusion midline, movement symmetrical. Extrem: normal to inspection and full ROM Mental Status Exam: Appearance: grossly normal Mental Status: mental status grossly normal Mood: dysthymic mood Affect: dysphoric affect Speech and Movement: speech normal, movement normal Attitude: cooperative Thought Process: normal Thought Content: Denied hallucinations, no homicidality, reported improving suicidality Insight: fair Judgment: fair [facility] Medical History (Updated 10/02/23 @ 13:03 by Chris Mcgregor MD) Polysubstance abuse Problem List clean-up per request of Phys. EHR Cmte Alcoholic hepatitis without ascites Problem List clean-up per request of Phys. EHR Cmte Seizure Problem List clean-up per request of Phys. EHR Cmte Substance abuse Problem List clean-up per request of Phys. EHR Cmte AA (alcohol abuse) Problem List clean-up per request of Phys. EHR Cmte Anxiety Problem List clean-up per request of Phys. EHR Cmte Smoker Problem List clean-up per request of Phys. EHR Cmte Depression Problem List clean-up per request of Phys. EHR Cmte History of right common carotid artery stent placement Problem List clean-up per request of Phys. EHR Cmte TIA (transient ischemic attack) Problem List clean-up per request of Phys. EHR Cmte Surgical History H/O foot surgery Right foot Problem List clean-up per request of Phys. EHR Cmte Family History Family/Other No problems noted. Other Hypertension Social History Smoking Status: Current every day smoker Tobacco Type: cigarettes Substance Use Type: Alcohol Substance Abuse Comment: Pt drinks when upset. Social History Comments: Lives with mother. Meds Medications and Allergies Allergies bupropion [From [employer]] Allergy (Verified 10/01/23 09:38) Seizure Home Medications clopidogrel 75 mg tablet (Plavix) 75 mg PO DAILY 06/23/18 [History Confirmed 10/01/23] loratadine 10 mg tablet (Claritin) 10 mg PO DAILY PRN Congestion 06/23/18 [History Confirmed 10/01/23] trazodone 150 mg tablet 150 mg PO QHS PRN Sleep 10/24/19 [History Confirmed 10/01/23] buspirone 10 mg tablet 20 mg PO TID 10/01/23 [History Confirmed 10/01/23] hydroxyzine pamoate 25 mg capsule 25 mg PO TID PRN anxiety 10/01/23 [History Confirmed 10/01/23] levetiracetam 500 mg tablet 500 mg PO BID 10/01/23 [History Confirmed 10/01/23] mirtazapine 30 mg tablet 30 mg PO HS 10/01/23 [History Confirmed 10/01/23] Exam Physical Exam Vital Signs: Temp Pulse Resp BP Pulse Ox O2 Del Method 97.6 F 85 16 125/81 99 Room Air 10/02/23 07:30 10/02/23 07:30 10/02/23 06:00 10/02/23 07:30 10/02/23 07:30 10/02/23 07:30 Results - Psychiatry Labs 10/01/23 09:40 10/01/23 09:40 Psychiatry Labs: 10/01/23 10/01/23 09:40 10:25 RBC 4.22 Hgb 14.7 Hct 42.8 MCV 101.4 H MCH 34.8 MCHC 34.3 RDW 12.9 Plt Count 172 MPV 9.1 Sodium 135 L Potassium 3.4 L Chloride 101 Carbon Dioxide 25.2 Anion Gap 12.2 BUN 6 L Creatinine 0.68 L Calcium 8.7 Total Bilirubin 0.5 AST 20 ALT 11 Alkaline Phosphatase 49 Total Protein 7.2 Albumin 4.4 Urine Color Yellow Urine Appearance Clear Urine pH 7.0 Ur Specific [place] 1.003 Urine Protein Negative Urine Glucose (UA) Normal Urine Ketones Negative Urine Occult Blood Negative Urine Nitrite Negative Ur Leukocyte Esterase Negative Assessment/Plan (1) MDD (major depressive disorder), recurrent episode, moderate: (2) Alcohol use disorder: Plan Patient presenting due to concern for depression and suicidal ideation. Reported that the symptoms are improving Will restart BuSpar 20 mg 3 times a day and mirtazapine 30 mg at bedtime Continue to monitor mental status Encourage group participation and medication compliance Risk benefits alternatives explained Documented By: Chris Mcgregor MD 10/02/23 1300 Signed By: <Electronically signed by Chris Mcgregor MD> 10/02/23 1303 [facility] Work Phone: 1(963) 204-221802-06-2024 NoteEntered by EVERARDO BEASLEY on June 12, 2023 08:43:02 EST From: EVERARDO BEASLEY To: [place] [id number] Sent: 06/12/2023 08:43:02 EST Subject: Medication Management Submitted: Complete:SUMAtriptan (SUMAtriptan 50 mg oral tablet) Signed by EVERARDO BEASLEY 06/12/2023 08:43:00 EST Approved with modifications: SUMAtriptan (SUMAtriptan Succinate 50 MG Oral Tablet) TAKE 1 TABLET BY MOUTH ONCE DAILY NEEDED FOR MIGRAINE. 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 MAY REPEAT DOSE AFTER 2 HOURS UP TO A MAXIMUM OF 200 MG IN 24 HOURS Quantity: 9 tab(s) Days Supply: 9 Refills: 0 Substitutions Allowed [id number] Note Entered by Bety Powell on March 02, 2023 11:35:27 EDT From: Bety Powell To: [place] [id number] Sent: 03/02/2023 11:35:27 EDT Subject: Medication Management Submitted: Order:traZODone (traZODone 150 mg oral tablet) 1 tab(s) PO Once a day (at bedtime) Qty: 90 tab(s) Duration: 90 day(s) Refills: 3 Substitutions Allowed Route To [place] [id number] Signed by Bety Powell 03/02/2023 11:35:00 EDT Submitted: Complete:traZODone (traZODone 150 mg oral tablet) Signed by Bety Powell 03/02/2023 11:35:00 EDT Not Approved: New Rx to follow traZODone (traZODone HCl 150 MG Oral Tablet) TAKE 1 TABLET BY MOUTH ONCE DAILY AT BEDTIME FOR 90 DAYS Qty: 90 tab(s) Days Supply: 90 Refills: 0 Substitutions Allowed Route To Pharmacy [place] [id number] Signed by Bety Powell From: [facility] To: Darrell Irvin DO, DO Sent: March 02, 2023 10:21:24 AM CDT Subject: Medication Management Due: March 03, 2023 12:08:24 AM CDT On Hold Pending Signature Dispensed Drug: traZODone (traZODone 150 mg oral tablet), TAKE 1 TABLET BY MOUTH ONCE DAILY AT BEDTIME FOR 90 DAYS Quantity: 90 tab(s) Days Supply: 90 Refills: 0 Substitutions Allowed [id number] Discharge instructions Follow Up Care 03/14/2022 09:36:48 With:AURA COLMENARES PA-C, URL Address: [address] [place] [phone] When: Unknown [facility] evaluation + Plan note Future Appointments Appointment Date:04/11/2022 01:30:00 PM Scheduled Provider:AURA COLMENARES PA-C Location:[facility] Appointment Type:URO New Patient [facility] Evaluation note* Diagnosis Onset Date Resolution Status Alcohol intoxication acute Suicidal ideation acute [facility] Work Phone: Evaluation note* Diagnosis Onset Date Resolution Status Alcohol intoxication acute Alcohol use disorder acute MDD (major depressive disord er), recurrent episode, moderate acute Suicidal ideation acute [facility] Work Phone: Hospital course Narrative No data available for this section [facility] Hospital Discharge instructions No data available for this section [facility] Progress note No data available for this section [facility] Summary Purpose Family History No Family History Records Found Relationship Condition Age at Onset Recorded Date/T zoran Not Specified Hypertension Unknown Advance Directives No Advanced Directives Records Found Advance Directive Response Recorded Date/ Time Advance Directives No June 1:09pm Chief Complaint and Reason for Visit Chief Complaint [facility] Reason for Visit Alcohol intoxication Suicidal ideation Chief Complaint [facility] Reason for Visit Alcohol intoxication Alcohol use disorder MDD (major depressive disorder), recurrent episode, moderate Suicidal ideation Additional Source Comments (unrecognized sect ion and content) No Status Records FoundNo Status Records FoundNo Status Records FoundNo Status Records FoundNo Status Records FoundNo Status Records FoundNo Status Records FoundNo Status Records FoundNo Status Records FoundNo Status Records FoundNo Status Records FoundNo Status Records FoundNo Status Records FoundNo Status Records FoundNo Status Records Found INFORMATION SOURCE (unrecogn ized section and content) DATE CREATED AUTHOR 04/15/2018 [facility] DATE CREATED AUTHOR AUTHOR'S ORGANIZ ATION 09/13/[address] [facility] DATE CREATED AUTHOR AUTHOR'S ORGANIZ ATION 06/18/2023 [facility] DATE CREATED AUTHOR AUTHOR'S ORGANIZ ATION 10/24/2023 [facility] DATE CREATED AUTHOR AUTHOR'S ORGANIZ ATION 10/25/2023 [facility] DATE CREATED AUTHOR AUTHOR'S ORGANIZ ATION 10/25/2023 [facility] DATE CREATED AUTHOR AUTHOR'S ORGANIZ ATION 10/26/2023 [facility] Patient Care team informatio n (unrecognized section and content) Team Status: Active Member Role Status Dates Darrell Irvin DO Primary Care Provider Active Team Status: Active Member Role Status Dates Ramu Peña DO Primary Care Provider Acti ve Start: September 25, 2023 Lm Mclaughlin MD Attending Provider Active Start: September 25, 2023 Team Status: Active Member Role Status Dates Neil Nieves MD Emergency Provider Active Star t: October 01, 2023 Darrell Irvin DO Primary Care Provider Active Start: October 01, 2023 Chris Mcgregor MD Admit Provider, Attending Provider Active Start: October 01, 2023 Team Status: Inactive Member Role Status Dates Neil Nieves MD Emergency Provider Active Star t: October 01, 2023 End: October 05, 2023 Darrell Irvin DO Primary Care Provider Active Start: October 01, 2023 End: October 05, 2023 Chirs Mcgregor MD Admit Provider, Attending Provider Active Start: October 01, 2023 End: October 05, 2023 Team Status: Active Member Role Status Dates Neil Nieves MD Emergency Provider Active Star t: October 02, 2023 Darrell Irvin DO Primary Care Provider Active Start: October 02, 2023 Chris Mcgregor MD Admit Provider, Atte nding Provider, Other Provider Active Start: October 02, 2023 Goals (unrecognized section and content) Goals may be documented in a n alternate section FOR RECORDS PERTAINING TO PATIENTS WHO ARE OR HAVE BEEN ENROLLED IN A CHEMICAL DEPENDENCY/SUBSTANCEABUSE PROGRAM, SOME INFORMATION MAY BE OMITTED. This clinical summary was aggregated from multiple sources. Caution should be exercised in using it in the provision of clinical care. This summary normalizes information from multiple sources, and as a consequence, information in this document may materially change the coding, format and clinical context of patient data. In addition, data may be omitted in some cases. CLINICAL DECISIONS SHOULD BE BASED ON THE PRIMARY CLINICAL RECORDS. [facility] [employer] provides no warranty or guarantee of the accuracy or completeness of information in this document.
[2023-10-26 11:36] LABS: Ethanol 294 mg/dL; Salicylate 4.9 mg/dL (<=19.9)
[2023-10-26 11:39] LABS: Bilirubin Urine NEGATIVE (NEGATIVE); Blood Urine TRACE-I (NEGATIVE); Clarity Urine CLEAR (CLEAR); Color Urine LT. YELLOW (YELLOW); Glucose Urine UA NEGATIVE (NEGATIVE); Ketones Urine NEGATIVE (NEGATIVE); Leukocyte Esterase Urine LARGE (NEGATIVE); Nitrite Urine NEGATIVE (NEGATIVE); Protein Urine NEGATIVE (NEG/TRACE); Specific Gravity Urine <=1.005 (1.005-1.025); Urobilinogen Urine 0.2 EU/dL (0.2-1.0)
[2023-10-26 11:55] LABS: Acetaminophen <2.0 ug/mL (10.0-30.0)
[2023-10-26 12:06] LABS: Bacteria Urine SMALL #/HPF (NONE SEEN); Mucus Urine NONE SEEN (NONE SEEN); Squamous Epithelial Cell Urine FEW #/LPF (NONE/RARE); WBC Urine >100 #/HPF (NONE SEEN)
[2023-10-26 12:07] LABS: Urine Culture Indicated YES
[2023-10-26 12:08] LABS: Amphetamine Screen Urine NEGATIVE (NEGATIVE); Barbiturates Screen Urine NEGATIVE (NEGATIVE); Benzodiazepines Screen Urine NEGATIVE (NEGATIVE); Buprenorphine Screen Urine NEGATIVE (NEGATIVE); Cannabinoid Screen Urine NEGATIVE (NEGATIVE); Cocaine Screen Urine NEGATIVE (NEGATIVE); Methadone Screen Urine NEGATIVE (NEGATIVE); Methamphetamines Screen Urine NEGATIVE (NEGATIVE); Opiate Screen Urine NEGATIVE (NEGATIVE); Oxycodone Screen Urine NEGATIVE (NEGATIVE); Phencyclidine Screen Urine NEGATIVE (NEGATIVE); Tricyclic Antidepressant Urine NEGATIVE (NEGATIVE)
[2023-10-26] MEDS: CEPHALEXIN 500 MG CAPSULE PO (12:26)
--- NOTE | 2023-10-26 13:04 | PC.NURSE ---
this RN assumed care of pt from Bruna ANDERSON at this time. pt resting on ED cart, watching tv with no distress noted. respirations even and non labored. pt denies current needs at this time. this RN sitting as constant observer outside of room.
--- NOTE | 2023-10-26 13:34 | PC.NURSE ---
this RN relieved by sitter at this time. pt remains under constant observation and denies needs from this RN. sitter remains outside of pt room.
--- NOTE | 2023-10-26 14:26 | PC.NURSE ---
pt resting on ED cart with no distress noted. sitter remains outside of ED room.
--- NOTE | 2023-10-26 15:59 | PC.NURSE ---
pt resting on ED cart with eyes closed, no distress noted. sitter remains outside of pts room.
--- NOTE | 2023-10-26 17:50 | PC.NURSE ---
pt provided with dinner at this time per pt request. pt denies needs of assitance with eating, sitter remains at bedside.
[2023-10-26 20:12] VITALS: BP 130/88; PULSE 74; O2SAT 97
[2023-10-26 20:36] LABS: Ethanol 15 mg/dL
[2023-10-26] MEDS: NICOTINE 21 MG PATCH.TD24 TD (21:26)
[2023-10-26 21:31] VITALS: BP 111/59; PULSE 81; O2SAT 100
--- NOTE | 2023-10-26 22:18 | PC.NURSE ---
2215 RN accepted Observation 1:1 of SI patient from . Pt currently lying left lateral on ER stretcher. No acute distress noted at present time. Eyes closed with even respirations. Television remains on with lights dimmed for comfort. No active SI vocalizations made to this policy writer, nor witnessed SI actions or attempts.
[2023-10-29 20:08] LABS: Neisseria gonorrhoeae, NAA Positive (Negative)
== END 2023-10-27 02:13 ==
PROVIDERS: Emergency Medicine; Emergency Provider Internal Medicine; PCP Internal Medicine
DX: R45.851 Suicidal ideations (principal); F17.200 Nicotine dependence, unspecified, uncomplicated; F10.129 Alcohol abuse with intoxication, unspecified; Y90.8 Blood alcohol level of 240 mg/100 ml or more
CPT/HCPCS: 36415; 80048; 80179; 80307; 80320; 80329; 81001; 85025; 87086; 87491; 87591; 93005; 99285